=== PATIENT | male | born 1965 | race Two or more races ===

== ENCOUNTER 2025-04-09 00:45 | Inpatient (IN) | payer MEDICAID, SELFPAY ==
[2025-04-09] VITALS (32 sets, daily range): BP systolic 132–176; BP diastolic 67–95; PULSE 68–113; RESP 16–98; TEMP 36.2–37.2; O2SAT 91–100; BMI 29.5; BMI 30.7
--- NOTE | 2025-04-09 01:02 | PD.EDSOB ---
ED SOB =RME/HPI General Chief Complaint: General Adult/Misc Complain Stated Complaint: HIGH BLOOD PRESSURE DIFFICULTY BREATHING Time Seen by Provider: 04/09/25 01:10 Arrival date/time: 04/09/25 00:45 RME / HPI RME / HPI Narrative: See [facility] for Dr. Ochoa's HPI documentation. Related Data Home Medications ?Medication ?Instructions ?Recorded ?Confirmed glipizide 5 mg tablet 5 mg PO BID 01/31/19 01/31/19 ibuprofen 800 mg tablet 800 mg PO BID 01/31/19 01/31/19 insulin glargine 100 unit/mL 28 unit subcut QPM 01/31/19 01/31/19 subcutaneous solution (Lantus U-100 Insulin) metformin 1,000 mg tablet 1,000 mg PO BID 01/31/19 01/31/19 Previous Rx's ?Medication ?Instructions ?Recorded cyclobenzaprine 10 mg tablet 10 mg PO BID #14 tabs 03/01/22 meloxicam 7.5 mg tablet 7.5 mg PO QDAY #10 tabs 03/01/22 Allergies Allergy/AdvReac Type Severity Reaction Status Date / Time No Known Allergies Allergy Verified 04/09/25 00:54 Review of Systems Review of Systems Systems Reviewed: All systems reviewed, normal except as documented Past Medical History Past Medical History NEUROLOGIC: Negative Neurological Disorders CARDIAC: Positive Hypertension; Negative Cardiac Disorders or Congestive Heart Failure RESPIRATORY: Negative Chronic Obstructive Pulmonary Disease (COPD) or Asthma GASTROINTESTINAL: Negative Gastrointestinal Disorders GENITOURINARY: Positive Renal Disease MUSCULOSKELETAL: Negative Musculoskeletal Disorders ENT: Positive Cataracts (right) ENDOCRINE: Positive Diabetes Mellitus Type 2; Negative Diabetes Mellitus Type 1 HEMATOLOGIC: Negative Sickle Cell Disease OTHER HISTORY: Negative Cancer Surgical History SURGICAL: Positive Ear Surgery; Negative Abdominal Surgery Social History SMOKING STATUS: Never smoker ED Exam Narrative Physical exam: See [facility] for Dr. Ocoha's physical exam documentation. Course Quality Measures none Orders Category Date Time Status Bedside COVID-19 Antigen Test NOW Care 04/09/25 01:11 Active Bedside COVID-19 Antigen Test NOW Care 04/09/25 02:42 Completed Bedside Influenza A&B Antigen Test NOW Care 04/09/25 01:11 Completed COVID-19 Screening Questionnaire NOW Care 04/09/25 02:27 Active Decision to Admit X1 Care 04/09/25 02:27 Completed EKG (ED ONLY) *Do not use* NOW Care 04/09/25 01:11 Completed Saline [Insert IV] NOW Care 04/09/25 01:11 Active Straight [In and Out Catheter] X1 Care 04/09/25 01:11 Completed Consult to Nephrology Stat Cons 04/09/25 02:23 Ordered EKG (ED Only) Stat Exams 04/09/25 01:11 Ordered XR chest 1V portable Stat Exams 04/09/25 01:11 Taken ABG [Arterial Blood Gas] Stat Lab 04/09/25 01:24 Completed BNP [B-Type Natriuretic Peptide] Stat Lab 04/09/25 01:35 Completed Bilirubin,Direct Stat Lab 04/09/25 01:35 Completed CBC Stat Lab 04/09/25 01:35 Completed CMP [Comprehensive Metabolic Panel] Stat Lab 04/09/25 01:35 Completed D-Dimer Stat Lab 04/09/25 01:35 Completed Magnesium Stat Lab 04/09/25 01:35 Completed TSH [Thyroid Stimulating Hormone] Stat Lab 04/09/25 01:35 Completed Troponin I Stat Lab 04/09/25 01:35 Completed UA, C/S IF [Urinalysis, C/S if Indicated] Stat Lab 04/09/25 01:13 Ordered Albuterol/Ipratr Rt Larisa [Duoneb Rt Larisa] Med 04/09/25 01:11 Discontinued 3 ml INH X1 ONE MethylPREDNISolone.* [SoluMEDROL Inj] Med 04/09/25 01:11 Discontinued 125 mg IVP X1 ONE Metoprolol Tartrate [Lopressor] Med 04/09/25 01:11 Discontinued 50 mg PO X1 ONE cloNIDine HCL [Catapres] Med 04/09/25 01:11 Discontinued 0.3 mg PO X1 ONE Vital Signs Vital signs: Vital Signs Temperature 98.5 F 04/09/25 00:57 Pulse Rate 89 04/09/25 00:57 Respiratory Rate 20 04/09/25 00:57 Blood Pressure 176/76 H 04/09/25 00:57 Pulse Oximetry (%) 91 L 04/09/25 00:57 Oxygen Delivery Method Room Air 04/09/25 00:57 Shortness of Breath / Dyspnea MDM Narrative MDM Narrative:: This section includes all my notes and documentations, including HPI, PE, and ED course. Chet Ochoa MD HPI: 59yo male here with several days of worsening dyspnea, dry cough, and orthopnea. And high BP readings at home. No headache or dizziness. No chest pain. No other complaints. ROS: All negative except as documented in HPI. Physical Exam: General: Alert and oriented. In respiratory distress. Hypoxia noted. High BP noted. Eyes: Conjunctivae and lids clear. PERRL. EOMI. ENT: No nasal congestion. Pharynx normal. TM normal bilaterally. Neck: Supple. No carotid bruit. No JVD. Heart: RRR. Lungs: In respiratory distress. Moderately decreased air movement with wheezing and Rales. Abdomen: Soft and nontender. Normal bowel sounds. No distension. No rebound or guarding. Back: No CVA tenderness. Skin: Warm and dry. Neuro: Alert and oriented X 3. Cranial nerves II to XII grossly normal. No peripheral motor deficits. I reviewed all diagnostic test results. My interpretation of the EKG is sinus rhythm with no acute ST?T changes. My interpretation of the chest x-ray is increased vascular congestion. Blood tests remarkable for Hgb 7.4, D-Dimer 776, Creatinine 4.7, Glucose 212, BNP 699. At this point, diagnoses include: Renal failure Acute respiratory failure with hypoxia Severe anemia High BP Treatment here included: Oral clonidine 0.3 mg Oral metoprolol 50 mg Solu-Medrol to 25 mg DuoNeb Patient remained stable. I discussed the case with Dr. Venegas (our asphalt distributor operator on-call) and our hospitalist. About the presentation and exam and diagnostics and treatments here. And need of further care in the hospital. Will accept the patient. Chet Ochoa MD Patient data External records reviewed:: [facility] previous records (Per chart review, patient was seen here on 03/01/22 for back pain.) Clinical information provided by:: patient Social determinants that could affect healthcare access:: none Patient has the following chronic illnesses:: DM, HTN How is presenting disease/condition affected by chronic disease/condition?: uneffected by Evaluation data The following diagnostics were reviewed and interpreted by me:: lab results, radiology exam(s) and EKG tracing(s) Lab and/or radiology exams considered but not ordered:: none Interpretation Summary: I reviewed all diagnostic test results. My interpretation of the EKG is sinus rhythm with no acute ST?T changes. My interpretation of the chest x-ray is increased vascular congestion. Blood tests remarkable for Hgb 7.4, D-Dimer 776, Creatinine 4.7, Glucose 212, BNP 699. Medications / Prescriptions Medications or Prescriptions considered but not ordered:: none Medication administrations:: Medication Administration History Discontinued Medications Albuterol/Ipratropium (Albuterol/Ipratropium (Duoneb) Rt Larisa 3 Ml Nebu) 3 ml INH X1 ONE Stop: 04/09/25 01:12 Last Admin: 04/09/25 01:27 Dose: 3 ml Documented By: RAMON Clonidine (Clonidine Hcl 0.1 Mg Tablet) 0.3 mg PO X1 ONE Stop: 04/09/25 01:12 Last Admin: 04/09/25 01:26 Dose: 0.3 mg Documented By: AMNA Methylprednisolone Sodium Succinate (Methylprednisolone Sod Succ 62.5 Mg/Ml 2ml Vial) 125 mg IVP X1 ONE Stop: 04/09/25 01:12 Last Admin: 04/09/25 01:25 Dose: 125 mg Documented By: AMNA Metoprolol Tartrate (Metoprolol Tartrate 25 Mg Tablet) 50 mg PO X1 ONE Stop: 04/09/25 01:12 Last Admin: 04/09/25 01:25 Dose: 50 mg Documented By: AMNA Treatment here included: Oral clonidine 0.3 mg Oral metoprolol 50 mg Solu-Medrol to 25 mg DuoNeb Consultations Consultation(s) initiated? (list below): Yes Consultation #1 (Physician, Specialty, Details): I discussed the case with Dr. Venegas (our asphalt distributor operator on-call) and our hospitalist. About the presentation and exam and diagnostics and treatments here. And need of further care in the hospital. Will accept the patient. Diagnosis Shortness of Breath Differential Diagnosis: acute exacerbation of chronic obstructive airways disease, congestive heart failure, community acquired pneumonia, asthma with exacerbation and pulmonary embolism Most likely diagnosis given after review of the tests above:: At this point, diagnoses include: Renal failure Acute respiratory failure with hypoxia Severe anemia High BP Admission Indicated Admission indicated?: indicated Explain why admission is indicated or not indicated:: Renal failure, Acute respiratory failure with hypoxia, severe anemia, elevated BP Admission Request Was there a request for admission?: Yes Admission Attestation Admission request attestation: Discussed case with Hospitalist service regarding admission. Discussed patients ED course, exam findings, labs, and radiology results. The Hospitalist [agrees] to accept the patient for admission. Disposition Plan Disposition Plan: Admit Discharge Plan Plan Patient Disposition: Admit Acute Care w/in Hospital Prescriptions/Referrals Prescriptions/Med Rec: No Action Lantus U-100 Insulin 100 unit/mL Solution 28 unit SUBCUT QPM ibuprofen 800 mg Tablet 800 mg PO BID metformin 1,000 mg Tablet 1,000 mg PO BID glipizide 5 mg Tablet 5 mg PO BID meloxicam 7.5 mg tablet 7.5 mg PO QDAY Qty: 10 0RF cyclobenzaprine 10 mg tablet 10 mg PO BID Qty: 14 0RF Problem List Clinical Impression: Renal failure, Acute respiratory failure with hypoxia, Severe anemia Patient/Caregiver Discharge Instructions Print Language: Emirati Stand Alone Forms: [employer] Award Info., Patient Portal Info Letter
--- NOTE | 2025-04-09 01:11 | EKG_ITS ---
[facility] Test Date: 2025-04-09 Pat Name: WENDY MEDINA Department: Room: - Gender: Male Shuttle Filler: FANNY : 1965 Requested By: Chet Sahu Order Number: [id number] Reading : Chet Sahu Measurements Intervals [place] Rate: 114 P: 142 IA: 198 QRS: 81 QRSD: 104 T: -66 QT: 313 QTc: 433 Interpretive Statements SINUS TACHYCARDIA INCOMPLETE RIGHT BUNDLE BRANCH BLOCK ST DEVIATION AND MODERATE T-WAVE ABNORMALITY, CONSIDER LATERAL ISCHEMIA ST DEVIATION AND MODERATE T-WAVE ABNORMALITY, CONSIDER INFERIOR ISCHEMIA Compared to ECG 03/01/2022 16:23:43 Incomplete right bundle-branch block now present T-wave abnormality now present Possible ischemia now present Sinus rhythm no longer present Left ventricular hypertrophy no longer present ST (T wave) deviation no longer present /store/S0/[id number]/ecg/[id number].pdf
--- NOTE | 2025-04-09 01:11 | XR_ITS ---
Examination: AP chest single view Technique: AP portable upright chest single view. Date and time: April 09, 2025 0158 hrs. Indications: High blood pressure difficulty breathing today. Findings: Mild to moderate CHF. Mild to moderate enlargement cardiac contour. Prominent vascular congestion with perihilar basilar edema Impression: Mild to moderate CHF.
[2025-04-09] MEDS: METOPROLOL TARTRATE 25 MG TABLET 50 MG PO (01:25)
[2025-04-09] MEDS: MethylPREDNISolone SOD SUCC 62.5 MG/ML 2ML VIAL 125 MG IVP (01:25)
[2025-04-09] MEDS: ALBUTEROL/IPRATROPIUM (Duoneb) RT SOL 3 ML NEBU INH (01:27)
[2025-04-09 01:29] LABS: Base Excess -1 (-3-3); HCO3 24 mEq/L (20-26); Inspired Oxygen, FIO2 21 %; O2 Saturation 91 % (91-98); PCO2 39 mmHg (32.0-48.0); pH, Arterial 7.40 (7.35-7.45)
[2025-04-09 01:32] LABS: Allen Test Performed/OK; PO2 57 mmHg (83-108); Puncture Site Right Radial
[2025-04-09 01:53] LABS: Basophils # (Auto) 0.1 Thou/mm3 (0.0-0.2); Basophils % (Auto) 1 % (0-2.5); Eosinophils # (Auto) 0.3 Thou/mm3 (0.0-0.5); Eosinophils % (Auto) 5 % (0-10); Hematocrit 23.1 % (41.0-53.0); Immature Granulocytes Auto 0.01 Thou/mm3 (0.00-0.00); Lymphocytes # (Auto) 0.7 Thou/mm3 (1.0-4.8); Lymphocytes % (Auto) 13 % (10-50); Mean Corpuscular HGB Conc 32.0 g/dl (31.0-37.0); Mean Corpuscular Hemoglobin 30.3 pg (25.0-35.0); Mean Corpuscular Volume 95 fL (80-100); Monocytes # (Auto) 0.5 Thou/mm3 (0.0-0.8); Monocytes % (Auto) 10 % (0-12); Neutrophils # (Auto) 3.6 Thou/mm3 (1.8-7.7); Neutrophils % (Auto) 71 % (37-80); Nucleated Red Blood Cell # 0.00 Thou/mm3 (0.00-0.00); Nucleated Red Blood Cell % 0 /100 WBC (0); Platelet Count 176 Thou/mm3 (140-440); RDW Standard Deviation 45.9 fL (35.1-43.9); Red Blood Count 2.44 Miln/mm3 (4.50-5.90); White Blood Count 5.1 Thou/mm3 (3.8-10.6)
[2025-04-09 01:55] LABS: Hemoglobin 7.4 g/dL (13.5-16.0)
[2025-04-09 02:11] LABS: B-Type Natriuretic Peptide 699 pg/mL (0-100)
[2025-04-09 02:14] LABS: Alanine Aminotransferase 45 U/L (10-49); Albumin, Serum 3.7 gm/dL (3.5-5.0); Albumin/Globulin Ratio 1.7 (1.2-2.2); Alkaline Phosphatase 61 U/L (46-116); Anion Gap 12 (7-16); Aspartate Amino Transferase 30 U/L (0-34); BUN/Creatinine Ratio 13 Ratio (12-20); Bilirubin,Direct 0.2 mg/dL (0.0-0.3); Bilirubin,Total 0.4 mg/dL (0.3-1.2); Blood Urea Nitrogen 60 mg/dL (9-23); Calcium 8.7 mg/dL (8.3-10.6); Calcium (Corrected) 8.9 mg/dL (8.5-10.1); Carbon Dioxide 25.0 mMol/L (20.0-31.0); Chloride 109 mMol/L (98-107); Creatinine (Component) 4.7 mg/dL (0.6-1.3); Estimated Creatinine Clearance 18.8 mL/min (>60); Globulin 2.2 gm/dL (2.3-3.5); Glucose 212 mg/dL (74-106); Magnesium 2.0 mg/dL (1.6-2.6); Osmolality,Calculated 313 (275-295); Potassium 4.8 mMol/L (3.4-5.1); Sodium 146 mMol/L (136-145); Thyroid Stimulating Hormone 2.59 uIU/mL (0.55-4.78); Total Protein 5.9 gm/dL (5.7-8.2); Troponin I 0.041 ng/mL (0.0-0.045); eGFR 14 See Note
[2025-04-09 02:15] LABS: D-Dimer 776 ng/mL (<600)
[2025-04-09 03:00] LABS: Collection Type, Urine Clean Catch; Squamous Epithelial Cell,Urine 0 /hpf (0-5)
[2025-04-09 03:12] LABS: Bilirubin,Urine Negative (Negative); Blood,Urine 1+ (Negative); Clarity,Urine Clear (Clear/Hazy); Color,Urine Colorless (Lt Yel-Yel); Culture Indicated,Urine Not Indicated; Glucose, Urine 4+ (Negative); Ketones,Urine Negative (Negative); Leukocyte Esterase,Urine Negative (Negative); Nitrite,Urine Negative (Negative); PH,Urine 7.0 (5.0-7.0); Protein,Urine 2+ (Neg - Trace); RBC,Urine 8 /hpf (0-3); Specific Gravity,Urine 1.012 (1.001-1.035); Urobilinogen,Urine Negative mg/dL (0.0-1.0); WBC,Urine 1 /hpf (0-5)
--- NOTE | 2025-04-09 04:18 | PD.RESHP ---
Documentation for date of: 04/09/25 [facility] History of Present Illness Chief complaint: SOB and HTN History of present illness: Mr. Ny, he is a 59-year-old male with past medical history significant for hypertension, insulin-dependent type 2 diabetes, hyperlipidemia, CKD that presented to the ED on 04/09/25 with chief complaint of acute shortness of breath and high blood pressure. The patient presents today with increased difficulty breathing and elevated blood pressure readings at home, particularly at night. The shortness of breath is associated with orthopnea, but the patient denies chest pain, paroxysmal nocturnal dyspnea, or any other chest discomfort. Over the past two months, nephrology has been discussing the option of starting dialysis due to his chronic kidney disease (CKD). However, the patient prefers to delay starting dialysis until after his planned family trip to [place]. He is seeking information on the benefits and risks of starting dialysis now versus later. The patient was advised to consider starting dialysis prior to his trip, and his decision was supported, with encouragement to proceed with treatment before leaving. The patient currently has no active complaints and denies recent sick contacts, abdominal pain, urinary frequency or urgency, diarrhea, vomiting, or generalized weakness. ED Course: -Initial vitals were BP 170 [place], pulse 89, RR 20, temp 98.5, O2 sat 91% on NC -Labs significant For hemoglobin at 7.4, hematocrit 23.1, D-dimer 776, ABG was significant for PaO2 57, and a 146, chloride 119, bun 60, creatinine 4.7, estimated creatinine clearance 18.8, eGFR of 14, glucose 212, BNP 699, globulin 2.2. UA showed 2+ protein, 4+ glucose, 8+ RBC. -Imaging included chest x-ray showed mild to moderate CHF, pulmonary vascular congestion with perihilar basilar edema. -In the ED, patient was given Dilaudid 15 mg, methylprednisolone 125 mg, clonidine 0.3, DuoNeb. -Patient was admitted for acute hypoxic respiratory failure and CKD evaluation and management. Review of Systems Review of systems otherwise negative except what is mentioned above. Past Medical History: As above Family History: Noncontributory Surgical History: Cardiac angiogram in the past Social History: Denies history of smoking, denies current alcohol use, denies recreational drug use Current Medications: (Source: ) Allergies: No known drug allergies Exam Vital Signs Temp Pulse Resp BP Pulse Ox O2 Del Method O2 Flow Rate 98.8 F 68 16 139/88 H 98 Nasal Cannula 2 04/09/25 04:00 04/09/25 04:00 04/09/25 04:00 04/09/25 04:00 04/09/25 04:00 04/09/25 04:00 04/09/25 04:00 Narrative Exam General: Alert, no acute distress.Conversational and non-toxic appearing. Skin: Warm, dry, intact. No rash or ecchymoses. Head: Normocephalic, atraumatic. Eye: Normal conjunctiva, PERRL. Throat: Oral mucosa moist. No obvious lesions in oropharynx. Cardiovascular: Regular rate and rhythm, no murmur, +S1/S2. Respiratory: Moderately decreased air movement with wheezing and rales. Gastrointestinal: Soft, nontender, non-distended. No guarding or rebound tenderness. Extremities: +1 pitting edema bilaterally Neuro: Alert and oriented x3.No focal deficits observed. Conversant, moving all extremities. No overt cerebellar signs/incoordination. Psychiatric: Cooperative, appropriate affect Results: Labs 04/11/25 05:05 04/11/25 05:05 Labs: Short CBC 04/09/25 Range/Units 01:35 WBC 5.1 (3.8-10.6) Thou/mm3 Hgb 7.4 L (13.5-16.0) g/dL Hct 23.1 L (41.0-53.0) % Plt Count 176 (140-440) Thou/mm3 BMP 04/09/25 01:35 Sodium 146 H Potassium 4.8 Chloride 109 H Carbon Dioxide 25.0 BUN 60 H Creatinine 4.7 H* Glucose 212 H Calcium 8.7 Cardiac Enzymes 04/09/25 Range/Units 01:35 Troponin I 0.041 (0.0-0.045) ng/mL Liver Function 04/09/25 Range/Units 01:35 Total Bilirubin 0.4 (0.3-1.2) mg/dL Direct Bilirubin 0.2 (0.0-0.3) mg/dL AST 30 (0-34) U/L ALT 45 (10-49) U/L Alkaline Phosphatase 61 (46-116) U/L Albumin 3.7 (3.5-5.0) gm/dL Urine 04/09/25 Range/Units 02:28 Urine Color Colorless A (Lt Yel-Yel) Urine Clarity Clear (Clear/Hazy) Urine pH 7.0 (5.0-7.0) Ur Specific [place] 1.012 (1.001-1.035) Urine Protein 2+ A (Neg - Trace) Urine Glucose (UA) 4+ A (Negative) ABG Interpretation ABG results: 04/09/25 01:24 ABG pH 7.40 ABG pCO2 39 ABG pO2 57 L* ABG HCO3 24 ABG O2 Saturation 91 ABG Base Excess -1 Quality Measures Quality Measures none Medications Home Medications and Allergies Home Medications ?Medication ?Instructions ?Recorded ?Confirmed ?Type aspirin 81 mg tablet 81 mg PO QDAY 04/10/25 04/10/25 History atorvastatin 80 mg PO QDAY 04/10/25 04/10/25 History calcitriol 0.25 mcg capsule 0.25 mcg PO QDAY 04/10/25 04/10/25 History hydralazine 50 mg tablet 50 mg PO BID 04/10/25 04/10/25 History metoprolol succinate 50 mg 50 mg PO QDAY 04/10/25 04/10/25 History tablet,extended release 24 hr (Toprol XL) sitagliptin phosphate 25 mg tablet 25 mg PO QDAY 04/10/25 04/10/25 History (Januvia) sodium bicarbonate 325 mg tablet 325 mg PO BID 04/10/25 04/10/25 History tamsulosin 0.4 mg capsule 0.4 mg PO BID 04/10/25 04/10/25 History valsartan 160 mg tablet 160 mg PO QDAY 04/10/25 04/10/25 History Allergies Allergy/AdvReac Type Severity Reaction Status Date / Time No Known Allergies Allergy Verified 04/09/25 00:54 Visit Medications Heparin Sodium (Porcine) (Heparin Sod Inj 5000 Unit/Ml Vial) 5,000 unit SC BID CHARLES Stop: 04/23/25 08:59 Insulin Degludec (Insulin Degludec 5 Unit/0.05 Ml (Per 5 Units)) 20 unit SC QDAY CHARLES Stop: 05/09/25 08:59 Ondansetron HCl (Ondansetron Inj 2 Mg/Ml Inj 2 Ml) 4 mg IVP Q6H PRN; Protocol PRN Reason: NAUSEA OR VOMITING Stop: 05/09/25 03:00 Discontinued Medications Albuterol/Ipratropium (Albuterol/Ipratropium (Duoneb) Rt Larisa 3 Ml Nebu) 3 ml INH X1 ONE Stop: 04/09/25 01:12 Last Admin: 04/09/25 01:27 Dose: 3 ml Clonidine (Clonidine Hcl 0.1 Mg Tablet) 0.3 mg PO X1 ONE Stop: 04/09/25 01:12 Last Admin: 04/09/25 01:26 Dose: 0.3 mg Methylprednisolone Sodium Succinate (Methylprednisolone Sod Succ 62.5 Mg/Ml 2ml Vial) 125 mg IVP X1 ONE Stop: 04/09/25 01:12 Last Admin: 04/09/25 01:25 Dose: 125 mg Metoprolol Tartrate (Metoprolol Tartrate 25 Mg Tablet) 50 mg PO X1 ONE Stop: 04/09/25 01:12 Last Admin: 04/09/25 01:25 Dose: 50 mg Assessment & Plan Plan Mr. Ny, he is a 59-year-old male with past medical history significant for hypertension, insulin-dependent type 2 diabetes, hyperlipidemia, CAD, CKD that presented to the ED on 04/09/25 with chief complaint of acute shortness of breath and high blood pressure. Admitted for acute possible fluid failure in the setting of worsening CKD. #Acute hypoxic respiratory failure 2/2 #Fluid overload in setting of #HFrEF (EF 35%) Patient presented with shortness of breath and is saturating 91% on 2 L nasal cannula. ABG was done and patient pO2 was significantly low at 57. Examination cardiac exam was sinus rhythm, however pulmonary exam was significant for wheezing throughout lungs and low breath sounds bilaterally. Patient sounds congested and fluid overloaded. Chest X-ray showed pulmonary vascular congestion perihilar basilar edema and mild to moderate CHF. Per chart review patient had cardiac angiogram done in 2019 in view of positive troponin and severe LL dysfunction EF 35%. Patient was transferred to [facility] for further management. On admission BNF 699, troponin were negative. Patient had no complains of chest pain, chest palpitation, paroxysmal nocturnal dyspnea. Patient clinical presentation, physical exam findings of volume overload suggest possible congestive heart failure exacerbation. Last ECHO on 01/31/19 show EF 35% Plan - Supplemental O2 as needed, wean as tolerated - Keep K > 4 and Mg > 2 - Consider getting a new TTE - Close monitor of cardiac symptoms # SAVI on CKD stage IV #Hyperkalemia On admission creatinine 4.7, creatinine clearance 18.8, GFR 14, BUN 60. Pt kidney function has deteriorated from last hospitalization. Patient probably progressing from CKD stage IV to V. Urgent dialysis is needed to stabilize patient kidney function. Plan -Dr Venegas consulted- IR for dialysis catheter insertion for HD, type and screen - Avoid nephrotoxins - Monitor renal panel -Renally dosed medications -Hold any YOSSI/ARB/diuretics #Primary Hypertension Patient hypertension continues to monitor home medication valsartan, metoprolol XL succinate. On admission BP was 176/76 for which patient received metoprolol tartrate 50 mg and clonidine 0.3. Plan - Continue to monitor vitals - Pending med rec #Insulin-dependent type 2 diabetes On admission glucose 196. A1c 6.6. The patient is on Jardiance, Januvia, 20 units degludec AM and 15 units p.m. Plan - [facility] glucose check - Started patient on 20 units degludec QDAY and 15 units HS #Hyperlipidemia History of HLD managed with home atorvastatin 80 mg. Last lipid panel on 02/01/19 triglyceride 172, cholesterol 214, LDL cholesterol 152, HLD cholesterol 28. Plan - Considered resuming home medications after dialysis - Pending med rec Hospital management: Lines: peripheral IV Diet: NPO Bowel: Senna DVT prophylaxis: heparin Sc Disposition: AHRF, SAVI on CKD management CODE STATUS: Full code Patient seen and assessed under supervision of attending physician Dr.Alhalaibeh Vidya Hicks MD PGY-1, Internal Medicine Please note: this document was transcribed using voice recognition technology; minor inaccuracies may be present. Attending Provider Attestation/Addendum After examination of the patient and review of the clinical data I feel that this patient needs admission to the hospital for further treatment/evaluation. Plan of care discussed with patient and is in agreement. I Trinidad Ballesteros MD, attest that I was physically present for atkins portions of evaluation, and examined patient, labs and imagings and plan of care were discussed with IM residents team, and I agree with the findings and plans documented above.
[2025-04-09 04:56] LABS: Basophils # (Auto) 0.0 Thou/mm3 (0.0-0.2); Basophils % (Auto) 1 % (0-2.5); Eosinophils # (Auto) 0.0 Thou/mm3 (0.0-0.5); Eosinophils % (Auto) 1 % (0-10); Hematocrit 23.3 % (41.0-53.0); Immature Granulocytes Auto 0.02 Thou/mm3 (0.00-0.00); Lymphocytes # (Auto) 0.3 Thou/mm3 (1.0-4.8); Lymphocytes % (Auto) 5 % (10-50); Mean Corpuscular HGB Conc 32.2 g/dl (31.0-37.0); Mean Corpuscular Hemoglobin 30.2 pg (25.0-35.0); Mean Corpuscular Volume 94 fL (80-100); Monocytes # (Auto) 0.1 Thou/mm3 (0.0-0.8); Monocytes % (Auto) 2 % (0-12); Neutrophils # (Auto) 4.7 Thou/mm3 (1.8-7.7); Neutrophils % (Auto) 91 % (37-80); Nucleated Red Blood Cell # 0.00 Thou/mm3 (0.00-0.00); Nucleated Red Blood Cell % 0 /100 WBC (0); Platelet Count 177 Thou/mm3 (140-440); RDW Standard Deviation 45.6 fL (35.1-43.9); Red Blood Count 2.48 Miln/mm3 (4.50-5.90); White Blood Count 5.1 Thou/mm3 (3.8-10.6)
[2025-04-09 04:57] LABS: Hemoglobin 7.5 g/dL (13.5-16.0)
[2025-04-09 05:12] LABS: Alanine Aminotransferase 43 U/L (10-49); Albumin, Serum 3.8 gm/dL (3.5-5.0); Albumin/Globulin Ratio 1.7 (1.2-2.2); Alkaline Phosphatase 58 U/L (46-116); Anion Gap 10 (7-16); Aspartate Amino Transferase 28 U/L (0-34); BUN/Creatinine Ratio 13 Ratio (12-20); Bilirubin,Total 0.4 mg/dL (0.3-1.2); Blood Urea Nitrogen 62 mg/dL (9-23); Calcium 8.8 mg/dL (8.3-10.6); Calcium (Corrected) 9.0 mg/dL (8.5-10.1); Carbon Dioxide 24.9 mMol/L (20.0-31.0); Chloride 110 mMol/L (98-107); Creatinine (Component) 4.6 mg/dL (0.6-1.3); Estimated Creatinine Clearance 19.2 mL/min (>60); Globulin 2.2 gm/dL (2.3-3.5); Glucose 188 mg/dL (74-106); Glucose Estimated Average 143 mg/dL (80-131); Hemoglobin A1C 6.6 % Hgb (4.8-6.0); Magnesium 2.0 mg/dL (1.6-2.6); Osmolality,Calculated 311 (275-295); Potassium 5.3 mMol/L (3.4-5.1); Sodium 145 mMol/L (136-145); Total Protein 6.0 gm/dL (5.7-8.2); eGFR 14 See Note
--- NOTE | 2025-04-09 08:15 | XR_ITS ---
Ultrasound-guided needle placement right internal jugular vein Permanent tunneled dialysis catheter insertion, percutaneous Fluoroscopy AP chest, portable, single view. Date and time of procedure: April 09, 2025 1005 hours INDICATIONS: Renal failure, need for stat and long-term dialysis Informed consent provided Technique: A timeout was completed verifying correct patient, procedure, site, positioning, and special equipment if applicable. The patient was placed in a dependent position appropriate for dialysis catheter placement based on the vein to be cannulated. The patient'sright neck was prepped and draped in sterile fashion. Maximum Sterile Barrier Technique used including cap, mask, sterile gown, sterile gloves, and sterile full body drape. If ultrasound technique used: sterile gel and sterile probe covers. Hand Hygiene performed using proper scrub, soap and water, or alcohol-based hand rub. 1% lidocaine was used to anesthetize the surrounding skin area The Site Message Buse portable ultrasound apparatus utilized to confirm patency right internal jugular vein Utilizing ultrasonographic guidance successful 21-gauge needle puncture right internal jugular vein Ultrasound images were recorded and stored. Vessel micropuncture was performed with 21-gauge needle. 0.18 wire guide is introduced into the vein. 0.18 wire is introduced into the vena cava under fluoroscopy. Subcutaneous tunnel formed in the upper chest. Permanent tunneled dialysis catheter placed in the subcutaneous tunnel. Dilators were introduced over the J-wire guide. Tunneled dialysis catheter is introduced through a dilator with venous sheath into the superior vena cava under fluoroscopic guidance. The catheter is sutured in place to the skin and a sterile dressing applied. Perfusion to the extremity distal to the point of catheter insertion is checked and found to be adequate Attending radiologist was present for the entire procedure Estimated blood loss4 cc. The patient tolerated the procedure well and there were no complications Impression: Successful ultrasound-guided needle placement right internal jugular vein Successful permanent tunneled dialysis catheter insertion, percutaneous Fluoroscopy 0.6 minutes radiation dose 17.87 milligray 1 spot fluoroscopic chest film. AP chest performed at completion procedure demonstrates satisfactory position dialysis catheter. May use dialysis catheter.
[2025-04-09] MEDS: TUBERCULIN PPD INJ 5 UNIT/0.1 ML DOSE ID (08:32)
[2025-04-09 08:41] LABS: INR 1.2 (0.9-1.3); Partial Thromboplastin Time 28.1 Seconds (22.0-36.0); Prothrombin Time 13.1 Seconds (9.0-12.2)
--- NOTE | 2025-04-09 08:47 | PD.RESHP ---
Documentation for date of: 04/09/25 HPI History of Present Illness History of present illness: 59y/o M with PMH of diabetes, HTN, high cholesterol, CKD presented to the hospital on 04/09/2025 due to worsening shortness of breathe at night. Patient noticed swelling in his bilateral feet 15 days ago. Starting 3 days ago, he was unable to go to sleep due to sudden onset of shortness of breathe that wakes him up the moment he falls asleep. He also couldn't lie flat on bed. He didn't have any problems walking during the day. Denies chest pain, palpitations, N/V, headache or dizziness, dysuria, or blood in the urine. Per Dr. Venegas, automation controls expert, he is CKD patient requiring dialysis, which the patient has refused.Patient has been admitted for management of SAVI on CKD requiring dialysis and CHF exacerbation. ED course: Medical history: As stated above Surgical history: Appendectomy Allergies: See list in the EMR Medications: Pending official med rec Family history: All his family member has Diabetes Social history: Denies smoking cigarettes, drinking alcohol or using other illicit drugs ROS: All 12 systems assessed and the patient denies unless otherwise stated in HPI Disposition: Management of SAVI on CKD and CHF Diet: NPO GI prophylaxis: DVT prophylaxis: Heparin Code: FULL Review of Systems Review of Systems Narrative Review of Systems: All 12 systems assessed and the patient denies unless otherwise stated in HPI Exam Vital Signs Temp Pulse Resp BP Pulse Ox O2 Del Method O2 Flow Rate 97.2 F 88 18 161/85 H 97 Nasal Cannula 2 04/09/25 08:00 04/09/25 08:00 04/09/25 08:00 04/09/25 08:00 04/09/25 08:00 04/09/25 08:00 04/09/25 08:00 Results: Labs 04/09/25 04:43 04/09/25 04:43 Labs: Short CBC 04/09/25 04/09/25 Range/Units 01:35 04:43 WBC 5.1 5.1 (3.8-10.6) Thou/mm3 Hgb 7.4 L 7.5 L (13.5-16.0) g/dL Hct 23.1 L 23.3 L (41.0-53.0) % Plt Count 176 177 (140-440) Thou/mm3 BMP 04/09/25 04/09/25 01:35 04:43 Sodium 146 H 145 Potassium 4.8 5.3 H D Chloride 109 H 110 H Carbon Dioxide 25.0 24.9 BUN 60 H 62 H Creatinine 4.7 H* 4.6 H* Glucose 212 H 188 H Calcium 8.7 8.8 Cardiac Enzymes 04/09/25 Range/Units 01:35 Troponin I 0.041 (0.0-0.045) ng/mL Liver Function 04/09/25 04/09/25 Range/Units 01:35 04:43 Total Bilirubin 0.4 0.4 (0.3-1.2) mg/dL Direct Bilirubin 0.2 (0.0-0.3) mg/dL AST 30 28 (0-34) U/L ALT 45 43 (10-49) U/L Alkaline Phosphatase 61 58 (46-116) U/L Albumin 3.7 3.8 (3.5-5.0) gm/dL Urine 04/09/25 Range/Units 02:28 Urine Color Colorless A (Lt Yel-Yel) Urine Clarity Clear (Clear/Hazy) Urine pH 7.0 (5.0-7.0) Ur Specific [place] 1.012 (1.001-1.035) Urine Protein 2+ A (Neg - Trace) Urine Glucose (UA) 4+ A (Negative) ABG Interpretation ABG results: 04/09/25 01:24 ABG pH 7.40 ABG pCO2 39 ABG pO2 57 L* ABG HCO3 24 ABG O2 Saturation 91 ABG Base Excess -1 Quality Measures Quality Measures none Medications Home Medications and Allergies Home Medications ?Medication ?Instructions ?Recorded ?Confirmed ?Type glipizide 5 mg tablet 5 mg PO BID 01/31/19 01/31/19 History ibuprofen 800 mg tablet 800 mg PO BID 01/31/19 01/31/19 History insulin glargine 100 unit/mL 28 unit subcut QPM 01/31/19 01/31/19 History subcutaneous solution (Lantus U-100 Insulin) metformin 1,000 mg tablet 1,000 mg PO BID 01/31/19 01/31/19 History Allergies Allergy/AdvReac Type Severity Reaction Status Date / Time No Known Allergies Allergy Verified 04/09/25 00:54 Visit Medications Heparin Sodium (Porcine) (Heparin Sod Inj 5000 Unit/Ml Vial) 5,000 unit SC BID [facility] Stop: 04/23/25 08:59 Insulin Degludec (Insulin Degludec 5 Unit/0.05 Ml (Per 5 Units)) 20 unit SC QDAY [facility] Stop: 05/09/25 08:59 Insulin Degludec (Insulin Degludec 5 Unit/0.05 Ml (Per 5 Units)) 15 unit SC HS [facility] Stop: 05/09/25 20:59 Ondansetron HCl (Ondansetron Inj 2 Mg/Ml Inj 2 Ml) 4 mg IVP Q6H PRN; Protocol PRN Reason: NAUSEA OR VOMITING Stop: 05/09/25 03:00 Discontinued Medications Albuterol/Ipratropium (Albuterol/Ipratropium (Duoneb) Rt Larisa 3 Ml Nebu) 3 ml INH X1 ONE Stop: 04/09/25 01:12 Last Admin: 04/09/25 01:27 Dose: 3 ml Clonidine (Clonidine Hcl 0.1 Mg Tablet) 0.3 mg PO X1 ONE Stop: 04/09/25 01:12 Last Admin: 04/09/25 01:26 Dose: 0.3 mg Methylprednisolone Sodium Succinate (Methylprednisolone Sod Succ 62.5 Mg/Ml 2ml Vial) 125 mg IVP X1 ONE Stop: 04/09/25 01:12 Last Admin: 04/09/25 01:25 Dose: 125 mg Metoprolol Tartrate (Metoprolol Tartrate 25 Mg Tablet) 50 mg PO X1 ONE Stop: 04/09/25 01:12 Last Admin: 04/09/25 01:25 Dose: 50 mg Tuberculin PPD (Tuberculin Ppd Inj 5 Unit/0.1 Ml Dose) 5 unit ID X1 ONE Stop: 04/09/25 08:15 Last Admin: 04/09/25 08:32 Dose: 5 unit
[2025-04-09] MEDS: INSULIN DEGLUDEC 5 UNIT/0.05 ML (PER 5 UNITS) 20 UNIT SC (08:55)
[2025-04-09] MEDS: HEPARIN SOD INJ 5000 UNIT/ML VIAL SC ×2 (08:55→21:07)
--- NOTE | 2025-04-09 09:09 | PD.RESCONSUL ---
HPI Data of Consult Consult date: 04/09/25 Requesting Physician: Trinidad Ballesteros MD Admitting Provider: Trinidad Ballesteros MD Attending Provider: Trinidad Ballesteros MD Primary Care Provider: Narciso Morrow MD Consult Narrative Reason for consult: ESRD-need for dialysis History of present illness: 59y/o M with PMH of diabetes, HTN, high cholesterol, CKD presented to the hospital on 04/09/2025 due to worsening shortness of breathe at night. Patient noticed swelling in his bilateral feet 15 days ago. Starting 3 days ago, he was unable to go to sleep due to sudden onset of shortness of breathe that wakes him up the moment he falls asleep. He also couldn't lie flat on bed. He didn't have any problems walking during the day. Denies chest pain, palpitations, N/V, headache or dizziness, dysuria, or blood in the urine.?Patient has CKD requiring dialysis, which the patient has refused.Patient has been admitted for management of SAVI on CKD requiring dialysis and CHF exacerbation. ED course: -Initial vitals were BP 170 [place], pulse 89, RR 20, temp 98.5, O2 sat 91% on NC -Labs significant For hemoglobin at 7.4, hematocrit 23.1, D-dimer 776, ABG was significant for PaO2 57, and a 146, chloride 119, bun 60, creatinine 4.7, estimated creatinine clearance 18.8, eGFR of 14, glucose 212, BNP 699, globulin 2.2. UA showed 2+ protein, 4+ glucose, 8+ RBC. -Imaging included chest x-ray showed mild to moderate CHF, pulmonary vascular congestion with perihilar basilar edema. -In the ED, patient was given Dilaudid 15 mg, methylprednisolone 125 mg, clonidine 0.3, DuoNeb. -Patient was admitted for acute hypoxic respiratory failure and CKD evaluation and management. Medical history: As stated above Surgical history: Appendectomy Allergies: NKDA Medications: Pending official med rec Family history: All his family members have Diabetes Social history: Denies smoking cigarettes, drinking alcohol or using other illicit drugs cc:: cc: Trinidad Ballesteros MD Review of Systems Review of Systems Narrative Review of Systems: All 12 systems assessed and the patient denies unless otherwise stated in HPI Exam Vital Signs Temp Pulse Resp BP Pulse Ox O2 Del Method O2 Flow Rate 97.2 F 88 18 161/85 H 97 Nasal Cannula 2 04/09/25 08:00 04/09/25 08:00 04/09/25 08:00 04/09/25 08:00 04/09/25 08:00 04/09/25 08:00 04/09/25 08:00 Narrative Exam General: No acute distress, well nourished, AAO x3 Eye: PERRL, EOMI, normal conjunctiva, no scleral icterus HENT: Normocephalic, atraumatic, hearing intact to conversation at normal volume, moist oral mucosa Neck: Supple, non-tender, no JVD, no lymphadenopathy Lungs: Non-labored respirations, symmetric chest rise, Clear to auscultate bilaterally, No wheezing, rhonchi, crackles Heart: Peripheral pulses intact bilaterally, Regular Rate and Rhythm Abdomen: Soft, non-tender, non-distended, no palpable masses Musculoskeletal: Normal range of motion and strength, No visible joint swelling, +1 pitting edema BLE Skin: Skin is warm, dry, no rashes or lesions. Psychiatric: Cooperative, appropriate mood and affect, Awake and alert, not agitated Neuro: Cranial nerves II-XII grossly intact. Strength 5/5 throughout. Sensations intact to light touch. Results Labs 04/09/25 04:43 04/09/25 04:43 Labs: Short CBC 04/09/25 04/09/25 Range/Units 01:35 04:43 WBC 5.1 5.1 (3.8-10.6) Thou/mm3 Hgb 7.4 L 7.5 L (13.5-16.0) g/dL Hct 23.1 L 23.3 L (41.0-53.0) % Plt Count 176 177 (140-440) Thou/mm3 BMP 04/09/25 04/09/25 01:35 04:43 Sodium 146 H 145 Potassium 4.8 5.3 H D Chloride 109 H 110 H Carbon Dioxide 25.0 24.9 BUN 60 H 62 H Creatinine 4.7 H* 4.6 H* Glucose 212 H 188 H Calcium 8.7 8.8 Cardiac Enzymes 04/09/25 Range/Units 01:35 Troponin I 0.041 (0.0-0.045) ng/mL Liver Function 04/09/25 04/09/25 Range/Units 01:35 04:43 Total Bilirubin 0.4 0.4 (0.3-1.2) mg/dL Direct Bilirubin 0.2 (0.0-0.3) mg/dL AST 30 28 (0-34) U/L ALT 45 43 (10-49) U/L Alkaline Phosphatase 61 58 (46-116) U/L Albumin 3.7 3.8 (3.5-5.0) gm/dL Urine 04/09/25 Range/Units 02:28 Urine Color Colorless A (Lt Yel-Yel) Urine Clarity Clear (Clear/Hazy) Urine pH 7.0 (5.0-7.0) Ur Specific [place] 1.012 (1.001-1.035) Urine Protein 2+ A (Neg - Trace) Urine Glucose (UA) 4+ A (Negative) ABG Interpretation ABG results: 04/09/25 01:24 ABG pH 7.40 ABG pCO2 39 ABG pO2 57 L* ABG HCO3 24 ABG O2 Saturation 91 ABG Base Excess -1 Quality Measures Quality Measures none Medications Home Medications and Allergies Home Medications ?Medication ?Instructions ?Recorded ?Confirmed ?Type glipizide 5 mg tablet 5 mg PO BID 01/31/19 01/31/19 History ibuprofen 800 mg tablet 800 mg PO BID 01/31/19 01/31/19 History insulin glargine 100 unit/mL 28 unit subcut QPM 01/31/19 01/31/19 History subcutaneous solution (Lantus U-100 Insulin) metformin 1,000 mg tablet 1,000 mg PO BID 01/31/19 01/31/19 History Allergies Allergy/AdvReac Type Severity Reaction Status Date / Time No Known Allergies Allergy Verified 04/09/25 00:54 Visit Medications Heparin Sodium (Porcine) (Heparin Sod Inj 5000 Unit/Ml Vial) 5,000 unit SC BID [facility] Stop: 04/23/25 08:59 Last Admin: 04/09/25 08:55 Dose: 5,000 unit Insulin Degludec (Insulin Degludec 5 Unit/0.05 Ml (Per 5 Units)) 20 unit SC QDAY [facility] Stop: 05/09/25 08:59 Last Admin: 04/09/25 08:55 Dose: 20 unit Insulin Degludec (Insulin Degludec 5 Unit/0.05 Ml (Per 5 Units)) 15 unit SC HS [facility] Stop: 05/09/25 20:59 Ondansetron HCl (Ondansetron Inj 2 Mg/Ml Inj 2 Ml) 4 mg IVP Q6H PRN; Protocol PRN Reason: NAUSEA OR VOMITING Stop: 05/09/25 03:00 Discontinued Medications Albuterol/Ipratropium (Albuterol/Ipratropium (Duoneb) Rt Larisa 3 Ml Nebu) 3 ml INH X1 ONE Stop: 04/09/25 01:12 Last Admin: 04/09/25 01:27 Dose: 3 ml Clonidine (Clonidine Hcl 0.1 Mg Tablet) 0.3 mg PO X1 ONE Stop: 04/09/25 01:12 Last Admin: 04/09/25 01:26 Dose: 0.3 mg Methylprednisolone Sodium Succinate (Methylprednisolone Sod Succ 62.5 Mg/Ml 2ml Vial) 125 mg IVP X1 ONE Stop: 04/09/25 01:12 Last Admin: 04/09/25 01:25 Dose: 125 mg Metoprolol Tartrate (Metoprolol Tartrate 25 Mg Tablet) 50 mg PO X1 ONE Stop: 04/09/25 01:12 Last Admin: 04/09/25 01:25 Dose: 50 mg Tuberculin PPD (Tuberculin Ppd Inj 5 Unit/0.1 Ml Dose) 5 unit ID X1 ONE Stop: 04/09/25 08:15 Last Admin: 04/09/25 08:32 Dose: 5 unit Assessment & Plan Plan 59y/o M with PMH of diabetes, HTN, high cholesterol, CKD presented to the hospital on 04/09/2025 due to worsening shortness of breathe at night. Patient has been admitted for management of SAVI on CKD requiring dialysis and CHF exacerbation. # SAVI on Chronic Kidney Disease Stage 5 # Severe anemia BUN 62 , Cr:4.6 , eGFR: 14, BNP:699 Hgb: 7.5 - Past Renal ultrasound (01/26/2024): Bilateral renal cortical thinning, Moderate bilateral renal parenchymal scar formation, Mid prostate nodule 13 x 19 x 26 mm, recommend correlation with PSA and follow-up transrectal prostate sonography -The patient unable to sleep at home laying flat and sudden shortness of breathe the moment he falls asleep -His current poor renal function likely caused CHF, resulting in fluid overload as evidenced by BNP levels. -Was offered dialysis, but patient refused. -Patient is a good candidate for kidney transplant considering his relatively young age. -Hemodialysis sessions: 04/09 ?Plan: - Patient will received Hemodialysis today - Tunneled Dialysis catheter ordered. - TB test and Hep panel ordered - Patient is anemic. Will receive irradiated pRBC 1 unit, considering possible kidney transplant. - Nephrology will continue to follow - Avoid nephrotoxic and renally dose medications, strict ins and outs #Acute hypoxemic respiratory failure #Acute CHF exacerbation #2/2 volume overload from CKD stage 5 #Hx of HFrE, EF 35% (01/31/2019) - Presenting with several days of lower extremity swelling, PND, and orthopnea. -Symptoms suggestive of acute CHF - EKG (04/09/2025): sinus rhythm with no acute ST?T changes - CXR (04/09/2025): Mild to moderate CHF, Mild to moderate enlargement cardiac contour. Prominent vascular congestion with perihilar basilar edema - Past Echo (01/31/2019): Normal left ventricular size , Approximate ejection fraction is 35%. , Trace to mild mitral and trace tricuspid regurgitation noted. Plan: -Hemodialysis because the main etiology of his condition is untreated CKD -TSH and Lipid panel -Strict ins and out -K>4 and Mg >2 replete with caution given worsening kidney functio -Daily weights #Primary Hypertension #Insulin-dependent type 2 diabetes #Hyperlipidemia -Management per Primary Hospitalist team Thank you for allowing us to participate in the care of your patient. Assessment and plan discussed with my attending physician Dr. Rubi Jones (PGY-1)- Internal medicine resident Attending Provider Attestation/Addendum Patient seen and examined with resident physician Dr. Jones. Note reviewed, agree with findings and recommendations. Well-known to me from my CKD clinic with advanced CKD Secondary to diabetic nephropathy. He has been refusing dialysis for the last 2 years. Came with a 3-day history of orthopnea, shortness of breath and not feeling well. Noted to have a GFR less than 10. Potassium elevated. Anemic. Agreed for dialysis. Renal replacement therapy options given-currently he chose hemodialysis. Dialysis catheter will be placed by IR. Dialysis orders- Hemodialysis for 2 hours, blood flow 200, dialysate flow 400, 2K, ultrafiltration 1 L, Epogen [id number], no heparin ordered. 1 unit irradiated PRBC ordered. Plan of care discussed with the dialysis nurse. Please see dialysis flowsheet for further details. Hep panel/PPD ordered. Outpatient dialysis to be arranged. Plan of care discussed with primary team. Thank you Dr. Kirk for allowing me to participate in the care of Mr. Ny
[2025-04-09] MEDS: HEPARIN SOD LOCK SYR 100 UNIT/ML 500 UNIT STFIELD (10:30)
[2025-04-09 10:41] LABS: Hepatitis A Antibody IgM Non Reactive (Non React); Hepatitis B Core Antibody IgM Non Reactive (Non React); Hepatitis B Surface Antigen Non Reactive (Non React); Hepatitis C Antibody Non Reactive (Non React)
[2025-04-09] MEDS: fentaNYL CIT INJ 50 mCg/ML AMP 2ML 75 MCG IVP (10:54)
[2025-04-09] MEDS: LIDOCAINE INJ PF 1% 5 ML VIAL 9 ML INFL (10:55)
[2025-04-09] MEDS: HEPARIN SOD INJ 1000 UNIT/ML VIAL 4100 UNIT INDWELLCAT (11:20)
--- NOTE | 2025-04-09 12:00 | PC.NURSE ---
RN (Devi) made aware of the change in patient's rhythm from sinus rhythm 70-80's to sinus tachy 110-114 post Dialysis catheter insertion. As per RN, Medical Team will be notified and get an order to monitor patient's heart rate closely, Patient left in room, no acute distress noted. Patient denies pain and discomfort at this time. Surgical site is asymptomatic.
--- NOTE | 2025-04-09 12:04 | PC.NURSE ---
Dr. Valdez made aware of the change in patient's rhythm from sinus rhythm 70-80's to sinus tachy 110-114 post Dialysis catheter insertion. As per Dr. Valdez, inform bedside nurse of this change for patient to be monitored closely for potential complications. Patient stable at this time.
--- NOTE | 2025-04-09 13:44 | PC.NURSE ---
informed Dr Tacos Deutsch at 1328 about pt hr in 120 since pt is back from dialysis cath placement. pt is not any chest pain or discomfort. stated to follow up with dialysis nurse because pt in need of dialysis due to fluid overload. Followed up with dialysis nurse at 1330. Dialysis nurse stated she will do dialysis at 1400.
--- NOTE | 2025-04-09 14:50 | ESPR_ITS ---
<Statement entered by Alexx Deutsch MD - 04/09/25 14:57> Overnight admission. Follows Dr. Ramon outpatient and admitted to initiate hemodialysis. BUN 62, creatinine 4.6, GFR 14. Underwent placement of right IJ permanent TDC and plan for first hemodialysis session today. Nephrology following and appreciate recommendations. CBC showed hemoglobin of 7.5 and given irradiated PRBCs. Reported by nursing staff to have elevated heart rate and EKG showed sinus tachycardia with heart rate 114 after placement of TDC. Otherwise, vital signs stable and discharge planning initiated for hemodialysis outpatient. ----- Note reviewed and agree with care plan as documented. Please refer to the note below for further details. Plan discussed with attending physician Dr. Reagan Deutsch MD PGY-2 Internal Medicine Documentation for date of: 04/09/25 Subjective Subjective Interval history: Patient was seen at bedside and examined. He complains of waking up in the middle of nights SOB, unable to get restful night sleep. Worsening during the past three days. Denies SOB with activity, orthopnea, or chest pain, or palpitations. Sleeps on one pillow at nights, but cannot lie flat lately. Patient states that he plans to travel to [place] at end of April, however, has been told that he needs HD as soon as possible by Dr Venegas. Exam Vital Signs Temp Pulse Resp BP Pulse Ox O2 Del Method O2 Flow Rate 98.0 F 79 18 139/81 H 95 Nasal Cannula 3 04/09/25 14:01 04/09/25 14:45 04/09/25 14:01 04/09/25 14:45 04/09/25 14:01 04/09/25 12:00 04/09/25 14:01 Narrative Exam General: Alert, no acute distress.Conversational and non-toxic appearing. Skin: Warm, dry, intact. No rash or ecchymoses. Head: Normocephalic, atraumatic. Eye: Normal conjunctiva, PERRL. Throat: Oral mucosa moist. No obvious lesions in oropharynx. Cardiovascular: Regular rate and rhythm, no murmur, +S1/S2. Respiratory: Moderately decreased air movement with wheezing and rales. Gastrointestinal: Soft, nontender, non-distended. No guarding or rebound tenderness. Extremities: +1 pitting edema bilaterally Neuro: Alert and oriented x3.No focal deficits observed. Conversant, moving all extremities. No overt cerebellar signs/incoordination. Psychiatric: Cooperative, appropriate affect Objective Labs 04/11/25 05:05 04/11/25 05:05 Labs: Laboratory Results - last 24 hr 04/09/25 04/09/25 04/09/25 01:24 01:35 02:28 WBC 5.1 RBC 2.44 L Hgb 7.4 L Hct 23.1 L MCV 95 MCH 30.3 MCHC 32.0 RDW Std Deviation 45.9 H Plt Count 176 Neut % (Auto) 71 Lymph % (Auto) 13 [place] % (Auto) 10 Eos % (Auto) 5 Baso % (Auto) 1 Neut # (Auto) 3.6 Lymph # (Auto) 0.7 L [place] # (Auto) 0.5 Eos # (Auto) 0.3 Baso # (Auto) 0.1 Immature Gran # (Auto) 0.01 H Absolute Nucleated RBC 0.00 Immature Gran % 0 Nucleated RBC % 0 PT INR APTT D-Dimer 776 H Puncture Site Right Radial ABG pH 7.40 ABG pCO2 39 ABG pO2 57 L* ABG HCO3 24 ABG O2 Saturation 91 ABG Base Excess -1 FiO2 21 Sodium 146 H Potassium 4.8 Chloride 109 H Carbon Dioxide 25.0 Anion Gap 12 BUN 60 H Creatinine 4.7 H* Estim Creat Clear Calc 18.8 L eGFR 14 L* BUN/Creatinine Ratio [address] Glu mg/dL Hemoglobin A1c Calculated Osmolality 313 H Calcium 8.7 Corrected Calcium 8.9 Magnesium 2.0 Total Bilirubin 0.4 Direct Bilirubin 0.2 AST 30 ALT 45 Alkaline Phosphatase 61 Troponin I 0.041 B-Natriuretic Peptide 699 H* Total Protein 5.9 Albumin 3.7 Globulin 2.2 L Albumin/Globulin Ratio 1.7 TSH 2.59 Ur Collection Type Clean Catch Urine Color Colorless A Urine Clarity Clear Urine pH 7.0 Ur Specific [place] 1.012 Urine Protein 2+ A Urine Glucose (UA) 4+ A Urine Ketones Negative Urine Blood 1+ A Urine Nitrite Negative Urine Bilirubin Negative Urine Urobilinogen (Auto) Negative Ur Leukocyte Esterase Negative Urine RBC 8 H Urine WBC 1 Ur Squamous Epith Cells 0 Urine Bacteria None Ur Culture Indicated? Not Indicated Hepatitis A IgM Ab Hep Bs Antigen Hep B Core IgM Ab Hepatitis C Antibody Blood Type Antibody Screen Crossmatch Blood Bank Wristband ID 04/09/25 04/09/25 04:43 09:10 WBC 5.1 RBC 2.48 L Hgb 7.5 L Hct 23.3 L MCV 94 MCH 30.2 MCHC 32.2 RDW Std Deviation 45.6 H Plt Count 177 Neut % (Auto) 91 H Lymph % (Auto) 5 L [place] % (Auto) 2 Eos % (Auto) 1 Baso % (Auto) 1 Neut # (Auto) 4.7 Lymph # (Auto) 0.3 L [place] # (Auto) 0.1 Eos # (Auto) 0.0 Baso # (Auto) 0.0 Immature Gran # (Auto) 0.02 H Absolute Nucleated RBC 0.00 Immature Gran % 0 Nucleated RBC % 0 PT 13.1 H INR 1.2 APTT 28.1 D-Dimer Puncture Site ABG pH ABG pCO2 ABG pO2 ABG HCO3 ABG O2 Saturation ABG Base Excess FiO2 Sodium 145 Potassium 5.3 H D Chloride 110 H Carbon Dioxide 24.9 Anion Gap 10 BUN 62 H Creatinine 4.6 H* Estim Creat Clear Calc 19.2 L eGFR 14 L* BUN/Creatinine Ratio [address]ucose [address] Glu mg/dL 143 H Hemoglobin A1c 6.6 H Calculated Osmolality 311 H Calcium 8.8 Corrected Calcium 9.0 Magnesium 2.0 Total Bilirubin 0.4 Direct Bilirubin AST 28 ALT 43 Alkaline Phosphatase 58 Troponin I B-Natriuretic Peptide Total Protein 6.0 Albumin 3.8 Globulin 2.2 L Albumin/Globulin Ratio 1.7 TSH Ur Collection Type Urine Color Urine Clarity Urine pH Ur Specific [place] Urine Protein Urine Glucose (UA) Urine Ketones Urine Blood Urine Nitrite Urine Bilirubin Urine Urobilinogen (Auto) Ur Leukocyte Esterase Urine RBC Urine WBC Ur Squamous Epith Cells Urine Bacteria Ur Culture Indicated? Hepatitis A IgM Ab Non Reactive Hep Bs Antigen Non Reactive Hep B Core IgM Ab Non Reactive Hepatitis C Antibody Non Reactive Blood Type A Positive Antibody Screen NEGATIVE Crossmatch See Detail Blood Bank Wristband ID Yes ABG Interpretation ABG results: 04/09/25 01:24 ABG pH 7.40 ABG pCO2 39 ABG pO2 57 L* ABG HCO3 24 ABG O2 Saturation 91 ABG Base Excess -1 Quality Measures Quality Measures none Assessment & Plan Assessment Current Active Medications: Generic Name Dose Route Start Last Admin Trade Name Freq PRN Reason Stop Dose Admin Epoetin Terry 10,000 unit 04/09/25 15:00 Epoetin Terry-Epbx Inj 10,000 Unit/Ml Vial (Esrd) SC 04/09/25 15:01 X1 ONE Heparin Sodium (Porcine) 5,000 unit 04/09/25 09:00 04/09/25 08:55 Heparin Sod Inj 5000 Unit/Ml Vial SC 04/23/25 08:59 5,000 unit BID CHARLES Administration Heparin Sodium (Porcine) 4,100 unit 04/09/25 14:34 Heparin Sod Inj 1000 Unit/Ml Vial 10 Ml INDWELLCAT 04/23/25 14:33 PRN PRN DIALYSIS Albumin Human 25 gm in 100 mls @ 100 mls/min 04/09/25 10:11 Albuminar-25 Ivpb IV PRN PRN DIALYSIS Insulin Degludec 20 unit 04/09/25 09:00 04/09/25 08:55 Insulin Degludec 5 Unit/0.05 Ml (Per 5 Units) OR 05/09/25 08:59 20 unit QDAY CHARLES Administration Insulin Degludec 15 unit 04/09/25 21:00 Insulin Degludec 5 Unit/0.05 Ml (Per 5 Units) OR 05/09/25 20:59 HS CHARLES Ondansetron HCl 4 mg 04/09/25 03:01 Ondansetron Inj 2 Mg/Ml Inj 2 Ml IVP 05/09/25 03:00 Q6H PRN NAUSEA OR VOMITING Protocol Plan Mr. Ny, he is a 59-year-old male with past medical history significant for hypertension, insulin-dependent type 2 diabetes, hyperlipidemia, CAD, CKD that presented to the ED on 04/09/25 with chief complaint of acute shortness of breath and high blood pressure. Admitted for acute possible fluid failure in the setting of worsening CKD. #Acute hypoxic respiratory failure 2/2 #Fluid overload in setting of #HFrEF (EF 35%) Patient presented with shortness of breath and is saturating 91% on 2 L nasal cannula. ABG was done and patient pO2 was significantly low at 57. Examination cardiac exam was sinus rhythm, however pulmonary exam was significant for wheezing throughout lungs and low breath sounds bilaterally. Patient sounds congested and fluid overloaded. Chest X-ray showed pulmonary vascular congestion perihilar basilar edema and mild to moderate CHF. Per chart review patient had cardiac angiogram done in 2019 in view of positive troponin and severe LL dysfunction EF 35%. Patient was transferred to [facility] for further management. On admission BNF 699, troponin were negative. Patient had no complains of chest pain, chest palpitation, paroxysmal nocturnal dyspnea. Patient clinical presentation, physical exam findings of volume overload suggest possible congestive heart failure exacerbation. Last ECHO on 01/31/19 show EF 35% Plan - Supplemental O2 as needed, wean as tolerated - Keep K > 4 and Mg > 2 - Consider getting a new TTE - Close monitor of cardiac symptoms #SAVI on CKD Stage V #Severe Anemia On admission creatinine 4.7, creatinine clearance 18.8, GFR 14, BUN 60. Pt kidney function has deteriorated from last hospitalization. Urgent dialysis is needed to stabilize patient kidney function. +IR placed a dialysis catheter. +First Dialysis today for 2h completed in PM Plan: - Nephrology Dr Venegas consulted, appreciate recs. - Patient is anemic. Will receive irradiated pRBC 1 unit, considering possible kidney transplant. -Avoid nephrotoxins, renally dose medications -Monitor renal panel - 1u of Hgb -Hold any YOSSI/ARB/diuretics #Primary Hypertension Patient hypertension continues to monitor home medication valsartan, metoprolol XL succinate. On admission BP was 176/76 for which patient received metoprolol tartrate 50 mg and clonidine 0.3. Plan - Continue to monitor vitals - Pending med recc #Insulin-dependent type 2 diabetes On admission glucose 196. A1c 6.6. The patient is on Jardiance, Januvia, 20 units degludec AM and 15 units p.m. Plan - ACHS glucose check - Started patient on 20 units degludec QDAY and 15 units HS #Hyperlipidemia History of HLD managed with home atorvastatin 80 mg. Last lipid panel on 02/01/19 triglyceride 172, cholesterol 214, LDL cholesterol 152, HLD cholesterol 28. Plan - Considered resuming home medications after dialysis - Pending med rec Hospital management: Lines: peripheral IV Diet: NPO Bowel: Senna DVT prophylaxis: heparin Sc Disposition: AHRF, SAVI on CKD management CODE STATUS: Full code This case was discussed with my attending physician, Dr. Kirk, and senior resident, Dr La Nena Balderrama. Frannie Thompson, DO PGY I Attending Provider Attestation/Addendum 59-year-old male with multiple comorbidities including hypertension, type 2 diabetes mellitus, hyperlipidemia and subsequent CAD, heart failure with reduced EF with EF 35%, and CKD who presented with shortness of breath found to have acute hypoxic respiratory failure secondary to fluid overload state with component of SAVI progressing to end-stage renal disease and component of heart failure with reduced EF with EF 35%. Plan to admit the patient and initiate hemodialysis for which patient will need 3 sessions and outpatient dialysis arrangement.I reviewed above note and agree with findings and plans. I have also personally examined the patient with medicine team and went over assessment and plan with medical team including international project manager and resident physician.
[2025-04-09] MEDS: EPOETIN ALFA-EPBX INJ 10,000 UNIT/ML VIAL (ESRD) 10000 UNIT SC (16:12)
[2025-04-09] MEDS: HEPARIN SOD INJ 1000 UNIT/ML VIAL 10 ML 4100 UNIT INDWELLCAT (16:40)
--- NOTE | 2025-04-09 21:19 | PC.NURSE ---
re med rec- Pt don't remember name of meds. Advised to have family bring med bottles from home in a.m.
[2025-04-09] MEDS: INSULIN DEGLUDEC 5 UNIT/0.05 ML (PER 5 UNITS) 15 UNIT SC (21:27)
[2025-04-10] VITALS (28 sets, daily range): BP systolic 142–190; BP diastolic 71–110; PULSE 56–77; RESP 16–96; TEMP 36.6–37.1; O2SAT 95–99
[2025-04-10 05:58] LABS: Basophils # (Auto) 0.0 Thou/mm3 (0.0-0.2); Basophils % (Auto) 0 % (0-2.5); Eosinophils # (Auto) 0.0 Thou/mm3 (0.0-0.5); Eosinophils % (Auto) 0 % (0-10); Hematocrit 23.6 % (41.0-53.0); Immature Granulocytes Auto 0.03 Thou/mm3 (0.00-0.00); Lymphocytes # (Auto) 0.6 Thou/mm3 (1.0-4.8); Lymphocytes % (Auto) 6 % (10-50); Mean Corpuscular HGB Conc 31.8 g/dl (31.0-37.0); Mean Corpuscular Hemoglobin 30.5 pg (25.0-35.0); Mean Corpuscular Volume 96 fL (80-100); Monocytes # (Auto) 0.6 Thou/mm3 (0.0-0.8); Monocytes % (Auto) 6 % (0-12); Neutrophils # (Auto) 8.5 Thou/mm3 (1.8-7.7); Neutrophils % (Auto) 88 % (37-80); Nucleated Red Blood Cell # 0.00 Thou/mm3 (0.00-0.00); Nucleated Red Blood Cell % 0 /100 WBC (0); Platelet Count 164 Thou/mm3 (140-440); RDW Standard Deviation 46.0 fL (35.1-43.9); Red Blood Count 2.46 Miln/mm3 (4.50-5.90); White Blood Count 9.7 Thou/mm3 (3.8-10.6)
[2025-04-10 06:00] LABS: Anion Gap 10 (7-16); BUN/Creatinine Ratio 11 Ratio (12-20); Blood Urea Nitrogen 51 mg/dL (9-23); Carbon Dioxide 27.6 mMol/L (20.0-31.0); Chloride 107 mMol/L (98-107); Creatinine (Component) 4.6 mg/dL (0.6-1.3); Potassium 4.9 mMol/L (3.4-5.1); Sodium 145 mMol/L (136-145)
[2025-04-10 06:01] LABS: Alanine Aminotransferase 30 U/L (10-49); Albumin, Serum 3.6 gm/dL (3.5-5.0); Albumin/Globulin Ratio 1.6 (1.2-2.2); Alkaline Phosphatase 53 U/L (46-116); Aspartate Amino Transferase 13 U/L (0-34); Bilirubin,Total 0.4 mg/dL (0.3-1.2); Calcium 8.8 mg/dL (8.3-10.6); Calcium (Corrected) 9.1 mg/dL (8.5-10.1); Estimated Creatinine Clearance 19.6 mL/min (>60); Globulin 2.2 gm/dL (2.3-3.5); Glucose 149 mg/dL (74-106); Magnesium 2.1 mg/dL (1.6-2.6); Osmolality,Calculated 305 (275-295); Phosphorous 5.2 mg/dL (2.4-5.1); Total Protein 5.8 gm/dL (5.7-8.2); eGFR 14 See Note
[2025-04-10 06:02] LABS: Hemoglobin 7.5 g/dL (13.5-16.0)
--- NOTE | 2025-04-10 08:17 | PD.RESPRO ---
Documentation for date of: 04/10/25 Subjective Subjective Interval history: Reason for consult: ESRD-need for dialysis History of present illness: 59y/o M with PMH of diabetes, HTN, high cholesterol, CKD presented to the hospital on 04/09/2025 due to worsening shortness of breathe at night. Patient noticed swelling in his bilateral feet 15 days ago. Starting 3 days ago, he was unable to go to sleep due to sudden onset of shortness of breathe that wakes him up the moment he falls asleep. He also couldn't lie flat on bed. He didn't have any problems walking during the day. Denies chest pain, palpitations, N/V, headache or dizziness, dysuria, or blood in the urine.?Patient has CKD requiring dialysis, which the patient has refused.Patient has been admitted for management of SAVI on CKD requiring dialysis and CHF exacerbation. ED course: -Initial vitals were BP 170 [place], pulse 89, RR 20, temp 98.5, O2 sat 91% on NC -Labs significant For hemoglobin at 7.4, hematocrit 23.1, D-dimer 776, ABG was significant for PaO2 57, and a 146, chloride 119, bun 60, creatinine 4.7, estimated creatinine clearance 18.8, eGFR of 14, glucose 212, BNP 699, globulin 2.2. UA showed 2+ protein, 4+ glucose, 8+ RBC. -Imaging included chest x-ray showed mild to moderate CHF, pulmonary vascular congestion with perihilar basilar edema. -In the ED, patient was given Dilaudid 15 mg, methylprednisolone 125 mg, clonidine 0.3, DuoNeb. -Patient was admitted for acute hypoxic respiratory failure and CKD evaluation and management. Medical history: As stated above Surgical history: Appendectomy Allergies: NKDA Medications: Pending official med rec Family history: All his family members have Diabetes Social history: Denies smoking cigarettes, drinking alcohol or using other illicit drugs 04/09/2025: Labs reviewed and patient examined at the bedside. Patient received hemodialysis today. Planned to receive irradiated pRBC 1 unit along with hemodialysis. TB test and Hep panel ordered. BUN 62, Cr:4.6 , eGFR: 14, BNP:699 Hgb: 7.5. 04/10/2025: Labs reviewed and patient examined at the bedside. Overall patient feels slightly better. No other complaints. Patient planned for second hemodialysis today. Third dialysis planned for tomorrow. After third dialysis, will plan to schedule outpatient hemodialysis sessions. Patient did not receive irradiated pRBC yesterday. Will receive today during hemodialysis. BUN 51, Cr:4.6 , eGFR: 14, Hgb: 7.5. Exam Vital Signs Temp Pulse Resp BP Pulse Ox O2 Del Method O2 Flow Rate 97.8 F 64 18 166/85 H 95 Nasal Cannula 2 04/10/25 08:09 04/10/25 08:15 04/10/25 08:09 04/10/25 08:15 04/10/25 08:09 04/10/25 08:05 04/10/25 08:09 Narrative Exam General: No acute distress, well nourished, AAO x3 Eye: PERRL, EOMI, normal conjunctiva, no scleral icterus HENT: Normocephalic, atraumatic, hearing intact to conversation at normal volume, moist oral mucosa Neck: Supple, non-tender, no JVD, no lymphadenopathy Lungs: Non-labored respirations, symmetric chest rise, Clear to auscultate bilaterally, No wheezing, rhonchi, crackles Heart: Peripheral pulses intact bilaterally, Regular Rate and Rhythm Abdomen: Soft, non-tender, non-distended, no palpable masses Musculoskeletal: Normal range of motion and strength, No visible joint swelling, +1 pitting edema BLE Skin: Skin is warm, dry, no rashes or lesions. Psychiatric: Cooperative, appropriate mood and affect, Awake and alert, not agitated Neuro: Cranial nerves II-XII grossly intact. Strength 5/5 throughout. Sensations intact to light touch. Objective Labs 04/11/25 05:05 04/11/25 05:05 Labs: Laboratory Results - last 24 hr 04/09/25 04/09/25 04/10/25 04:43 09:10 04:55 WBC 9.7 D RBC 2.46 L Hgb 7.5 L Hct 23.6 L MCV 96 MCH 30.5 MCHC 31.8 RDW Std Deviation 46.0 H Plt Count 164 Neut % (Auto) 88 H Lymph % (Auto) 6 L [place] % (Auto) 6 Eos % (Auto) 0 Baso % (Auto) 0 Neut # (Auto) 8.5 H Lymph # (Auto) 0.6 L [place] # (Auto) 0.6 Eos # (Auto) 0.0 Baso # (Auto) 0.0 Immature Gran # (Auto) 0.03 H Absolute Nucleated RBC 0.00 Immature Gran % 0 Nucleated RBC % 0 PT 13.1 H INR 1.2 APTT 28.1 Sodium 145 Potassium 4.9 Chloride 107 Carbon Dioxide 27.6 Anion Gap 10 BUN 51 H Creatinine 4.6 H* Estim Creat Clear Calc 19.6 L eGFR 14 L* BUN/Creatinine Ratio 11 L Glucose 149 H Calculated Osmolality 305 H Calcium 8.8 Corrected Calcium 9.1 Phosphorus 5.2 H Magnesium 2.1 Total Bilirubin 0.4 AST 13 ALT 30 Alkaline Phosphatase 53 Total Protein 5.8 Albumin 3.6 Globulin 2.2 L Albumin/Globulin Ratio 1.6 Hepatitis A IgM Ab Non Reactive Hep Bs Antigen Non Reactive Hep B Core IgM Ab Non Reactive Hepatitis C Antibody Non Reactive Blood Type A Positive Antibody Screen NEGATIVE Crossmatch See Detail Blood Bank Wristband ID Yes ABG Interpretation ABG results: 04/09/25 01:24 ABG pH 7.40 ABG pCO2 39 ABG pO2 57 L* ABG HCO3 24 ABG O2 Saturation 91 ABG Base Excess -1 Quality Measures Quality Measures none Assessment & Plan Assessment Current Active Medications: Generic Name Dose Route Start Last Admin Trade Name Freq PRN Reason Stop Dose Admin Heparin Sodium (Porcine) 5,000 unit 04/09/25 09:00 04/09/25 21:07 Heparin Sod Inj 5000 Unit/Ml Vial SC 04/23/25 08:59 5,000 unit BID CHARLES Administration Heparin Sodium (Porcine) 4,100 unit 04/09/25 14:34 04/09/25 16:40 Heparin Sod Inj 1000 Unit/Ml Vial 10 Ml INDWELLCAT 04/23/25 14:33 4,100 unit PRN PRN Administration DIALYSIS Albumin Human 25 gm in 100 mls @ 100 mls/min 04/09/25 10:11 Albuminar-25 Ivpb IV PRN PRN DIALYSIS Insulin Degludec 20 unit 04/09/25 09:00 04/09/25 08:55 Insulin Degludec 5 Unit/0.05 Ml (Per 5 Units) MI 05/09/25 08:59 20 unit QDAY CHARLES Administration Insulin Degludec 15 unit 04/09/25 21:00 04/09/25 21:27 Insulin Degludec 5 Unit/0.05 Ml (Per 5 Units) SC 05/09/25 20:59 15 unit HS CHARLES Administration Ondansetron HCl 4 mg 04/09/25 03:01 Ondansetron Inj 2 Mg/Ml Inj 2 Ml IVP 05/09/25 03:00 Q6H PRN NAUSEA OR VOMITING Protocol Plan 59y/o M with PMH of diabetes, HTN, high cholesterol, CKD presented to the hospital on 04/09/2025 due to worsening shortness of breathe at night. Patient has been admitted for management of SAVI on CKD requiring dialysis and CHF exacerbation. # SAVI on Chronic Kidney Disease Stage 5 # Severe anemia On admission: BUN 62 , Cr:4.6 , eGFR: 14, BNP:699 Hgb: 7.5 - Past Renal ultrasound (01/26/2024): Bilateral renal cortical thinning, Moderate bilateral renal parenchymal scar formation, Mid prostate nodule 13 x 19 x 26 mm, recommend correlation with PSA and follow-up transrectal prostate sonography -On admission, the patient unable to sleep at home laying flat and sudden shortness of breathe the moment he falls asleep -His poor renal function likely caused CHF, resulting in fluid overload as evidenced by BNP levels. -Was offered dialysis, but patient refused. -Patient is a good candidate for kidney transplant considering his relatively young age. -Currently, BUN 51, Cr:4.6 , eGFR: 14, Hgb: 7.5. -Hemodialysis sessions: 04/09, 04/10 ?Plan: - Patient planned for Second hemodialysis today. Third dialysis planned tomorrow. After third dialysis, will plan to schedule outpatient hemodialysis sessions. - Patient is anemic. Patient did not receive irradiated pRBC yesterday. Planned to receive today during hemodialysis. - Nephrology will continue to follow - Avoid nephrotoxic and renally dose medications, strict ins and outs #Acute hypoxemic respiratory failure #Acute CHF exacerbation #2/2 volume overload from CKD stage 5 #Hx of HFrE, EF 35% (01/31/2019) - Presenting with several days of lower extremity swelling, PND, and orthopnea. -Symptoms suggestive of acute CHF - EKG (04/09/2025): sinus rhythm with no acute ST?T changes - CXR (04/09/2025): Mild to moderate CHF, Mild to moderate enlargement cardiac contour. Prominent vascular congestion with perihilar basilar edema - Past Echo (01/31/2019): Normal left ventricular size , Approximate ejection fraction is 35%. , Trace to mild mitral and trace tricuspid regurgitation noted. Plan: -Hemodialysis because the main etiology of his condition is untreated CKD -TSH and Lipid panel -Strict ins and out -K>4 and Mg >2 replete with caution given worsening kidney functio -Daily weights #Primary Hypertension #Insulin-dependent type 2 diabetes #Hyperlipidemia -Management per Primary Hospitalist team Thank you for allowing us to participate in the care of your patient. Assessment and plan discussed with my attending physician Dr. Rubi Jones (PGY-1)- Internal medicine resident Attending Provider Attestation/Addendum Patient seen and examined with resident physician Dr. Jones. Note reviewed, agree with findings and recommendations. Well-known to me from my CKD clinic with advanced CKD Secondary to diabetic nephropathy. He has been refusing dialysis for the last 2 years. Came with a 3-day history of orthopnea, shortness of breath and not feeling well. Noted to have a GFR less than 10. Potassium elevated. Anemic. Agreed for dialysis. Renal replacement therapy options given-currently he chose hemodialysis. Dialysis catheter was placed by IR. Patient currently seen on his second dialysis session. Tolerating without any problems. Hemodialysis for 2.5 hours, blood flow 200, dialysate flow 400, 2K, ultrafiltration 1 L, Epogen [id number], no heparin ordered. 1 unit irradiated PRBC will be transfused today Plan of care discussed with the dialysis nurse. Please see dialysis flowsheet for further details. Hep panel negative, PPD placed outpatient dialysis to be arranged. Plan of care discussed with primary team. After third session tomorrow he can be discharged.
[2025-04-10] MEDS: HEPARIN SOD INJ 1000 UNIT/ML VIAL 10 ML 4100 UNIT INDWELLCAT (10:53)
--- NOTE | 2025-04-10 11:19 | PC.NURSE ---
call to pharmacy, [email or web address]
[2025-04-10] MEDS: HEPARIN SOD INJ 5000 UNIT/ML VIAL SC ×2 (11:24→20:35)
[2025-04-10] MEDS: INSULIN DEGLUDEC 5 UNIT/0.05 ML (PER 5 UNITS) 20 UNIT SC (11:25)
--- NOTE | 2025-04-10 11:49 | ESPR_ITS ---
<Statement entered by Alexx Deutsch MD - 04/10/25 13:46> No acute overnight events. Seen and examined during second session of hemodialysis and received 1 unit irradiated PRBC and tolerating well. Needs 1 more session of hemodialysis and will then pend outpatient chair. Vital signs stable, hemoglobin stable at 7.5, and CHEM panel consistent with ESRD. Nephrology following, appreciate recommendations. ----- Note reviewed and agree with care plan as documented. Please refer to the note below for further details. Plan discussed with attending physician Dr. Reagan Deutsch MD PGY-2 Internal Medicine Documentation for date of: 04/10/25 Subjective Subjective Interval history: Patient went for dialysis today and received 1 unit of blood. He was seen and examined after his dialysis session. He denied chest pain, shortness of breath, or palpitations. He was saturating at 95% on 2 L nasal cannula. Exam Vital Signs Temp Pulse Resp BP Pulse Ox O2 Del Method O2 Flow Rate 97.8 F 65 18 171/94 H 95 Nasal Cannula 2 04/10/25 10:50 04/10/25 10:50 04/10/25 10:50 04/10/25 10:50 04/10/25 10:50 04/10/25 08:05 04/10/25 10:50 Narrative Exam General: Chronically ill-appearing man. Awake and in no acute distress. Neurologic: GCS 15. Alert and oriented x3, no gross neurological deficit, and patient able to move all 4 extremities. HEENT: Normocephalic, atraumatic, mucous membranes moist. Pupils reactive to light. Heart: Regular rate and rhythm, normal S1 and S2, no murmurs. Lungs: Decreased air movement with wheezes and rales bilaterally Abdomen: Soft, nondistended, nontender, positive bowel sounds. No guarding or rebound tenderness. Extremities: 1+ pitting edema in the lower extremities bilaterally. 2+ radial and dorsalis pedis pulses bilaterally. Skin: Warm. Dry. No rash or ecchymoses. Objective Labs 04/11/25 05:05 04/11/25 05:05 Labs: Laboratory Results - last 24 hr 04/09/25 04/10/25 09:10 04:55 WBC 9.7 D RBC 2.46 L Hgb 7.5 L Hct 23.6 L MCV 96 MCH 30.5 MCHC 31.8 RDW Std Deviation 46.0 H Plt Count 164 Neut % (Auto) 88 H Lymph % (Auto) 6 L [place] % (Auto) 6 Eos % (Auto) 0 Baso % (Auto) 0 Neut # (Auto) 8.5 H Lymph # (Auto) 0.6 L [place] # (Auto) 0.6 Eos # (Auto) 0.0 Baso # (Auto) 0.0 Immature Gran # (Auto) 0.03 H Absolute Nucleated RBC 0.00 Immature Gran % 0 Nucleated RBC % 0 Sodium 145 Potassium 4.9 Chloride 107 Carbon Dioxide 27.6 Anion Gap 10 BUN 51 H Creatinine 4.6 H* Estim Creat Clear Calc 19.6 L eGFR 14 L* BUN/Creatinine Ratio 11 L Glucose 149 H Calculated Osmolality 305 H Calcium 8.8 Corrected Calcium 9.1 Phosphorus 5.2 H Magnesium 2.1 Total Bilirubin 0.4 AST 13 ALT 30 Alkaline Phosphatase 53 Total Protein 5.8 Albumin 3.6 Globulin 2.2 L Albumin/Globulin Ratio 1.6 Blood Type A Positive Antibody Screen NEGATIVE Crossmatch See Detail Blood Bank Wristband ID Yes ABG Interpretation ABG results: 04/09/25 01:24 ABG pH 7.40 ABG pCO2 39 ABG pO2 57 L* ABG HCO3 24 ABG O2 Saturation 91 ABG Base Excess -1 Quality Measures Quality Measures none Assessment & Plan Assessment Current Active Medications: Generic Name Dose Route Start Last Admin Trade Name Freq PRN Reason Stop Dose Admin Heparin Sodium (Porcine) 5,000 unit 04/09/25 09:00 04/10/25 11:24 Heparin Sod Inj 5000 Unit/Ml Vial SC 04/23/25 08:59 5,000 unit BID CHARLES Administration Heparin Sodium (Porcine) 4,100 unit 04/09/25 14:34 04/10/25 10:53 Heparin Sod Inj 1000 Unit/Ml Vial 10 Ml INDWELLCAT 04/23/25 14:33 4,100 unit PRN PRN Administration DIALYSIS Albumin Human 25 gm in 100 mls @ 100 mls/min 04/09/25 10:11 Albuminar-25 Ivpb IV PRN PRN DIALYSIS Insulin Degludec 20 unit 04/09/25 09:00 04/10/25 11:25 Insulin Degludec 5 Unit/0.05 Ml (Per 5 Units) SC 05/09/25 08:59 20 unit QDAY CHARLES Administration Insulin Degludec 15 unit 04/09/25 21:00 04/09/25 21:27 Insulin Degludec 5 Unit/0.05 Ml (Per 5 Units) SC 05/09/25 20:59 15 unit HS CHARLES Administration Ondansetron HCl 4 mg 04/09/25 03:01 Ondansetron Inj 2 Mg/Ml Inj 2 Ml IVP 05/09/25 03:00 Q6H PRN NAUSEA OR VOMITING Protocol Plan Summary: Mr. Ny, he is a 59-year-old male with past medical history significant for hypertension, insulin-dependent type 2 diabetes, hyperlipidemia, CAD, CKD that presented to the ED on 04/09/25 with chief complaint of acute shortness of breath and high blood pressure. Admitted for acute possible fluid failure in the setting of worsening CKD. #Acute hypoxic respiratory failure 2/ #Fluid overload in setting of #HFrEF (EF 35%) Patient presented initially with shortness of breath and was saturating 91% on 2 L nasal cannula. ABG was done and patient pO2 was significantly low at 57. Cardiac exam had a sinus rhythm, however pulmonary exam was significant for wheezing throughout lungs and low breath sounds bilaterally. Patient sounds congested and fluid overloaded. Chest X-ray showed pulmonary vascular congestion perihilar basilar edema and mild to moderate CHF. Per chart review patient had cardiac angiogram done in 2019 in view of positive troponin and severe LL dysfunction EF 35%. Patient was transferred to [facility] for further management. On admission BNF 699, troponins were negative. Patient had no complains of chest pain, chest palpitation, paroxysmal nocturnal dyspnea. Patient clinical presentation, physical exam findings of volume overload suggest possible congestive heart failure exacerbation. Last ECHO on 01/31/19 show EF 35% Plan - Continue supplemental O2 as needed, wean as tolerated - Keep K > 4 and Mg > 2 - Consider getting a new TTE - Close monitor of cardiac symptoms #SAVI on CKD Stage V #Severe Anemia On admission creatinine 4.7, creatinine clearance 18.8, GFR 14, BUN 60. Pt kidney function has deteriorated from last hospitalization. +IR placed a dialysis catheter. First of 3 dialysis sessions performed today, the patient reported no pain and tolerated the session well, 1.8 L of fluid were removed, 1 unit of irradiated PRBCs was transfused, presession hemoglobin was 7.5 Plan: - Nephrology Dr Venegas consulted, appreciate recs. - Patient is a kidney transplant candidate, follow-up outpatient -Avoid nephrotoxins, renally dose medications -Monitor renal panel -Continue to hold any YOSSI/ARB/diuretics #Primary Hypertension Patient takes hydralazine 50 mg p.o. twice daily, metoprolol 50 mg p.o. daily for blood pressure at home On admission BP was 176/76 for which patient received metoprolol tartrate 50 mg and clonidine 0.3. Plan - Holding home blood pressure medications, dialysis today #Insulin-dependent type 2 diabetes On admission glucose 196. A1c 6.6. The patient is on Jardiance, Januvia, 20 units degludec AM and 15 units p.m. Plan - Continue degludec 20 units in the morning, 15 units at night - [facility] glucose check #Hyperlipidemia Last lipid panel on 02/01/19 triglyceride 172, cholesterol 214, LDL cholesterol 152, HLD cholesterol 28. Reordered lipid panel in house Plan - Restarted home atorvastatin 80 mg - Follow-up lipid panel Hospital management: Lines: peripheral IV Diet: Renal diet DVT prophylaxis: heparin Sc Disposition: AHRF, SAVI on CKD management, continuing supplemental oxygen as needed, went for 1 of 3 required dialysis sessions today 04/10/2025, received 1 unit of irradiated RBCs during the session and tolerated the session well. CODE STATUS: Full code This case was discussed with my attending physician Dr. Reagan CHAN and senior resident, Dr La Nena CHAN PGY-2. Ron Strickland DO Attending Provider Attestation/Addendum 59-year-old male with multiple comorbidities including hypertension, type 2 diabetes mellitus, hyperlipidemia and subsequent CAD, heart failure with reduced EF with EF 35%, and CKD who presented with shortness of breath found to have acute hypoxic respiratory failure secondary to fluid overload state with component of SAVI progressing to end-stage renal disease and component of heart failure with reduced EF with EF 35%. Plan to admit the patient and initiate hemodialysis for which patient will need 3 sessions and outpatient dialysis arrangement.I reviewed above note and agree with findings and plans. I have also personally examined the patient with medicine team and went over assessment and plan with medical team including undergraduate intern and resident physician.
[2025-04-10 12:01] LABS: Hepatitis A Antibody IgM Non Reactive (Non React); Hepatitis B Core Antibody IgM Non Reactive (Non React); Hepatitis B Surface Antigen Non Reactive (Non React); Hepatitis C Antibody Non Reactive (Non React)
[2025-04-10 12:03] LABS: HIV (1&2) Antibody Rapid Non-Reactive
[2025-04-10 12:14] LABS: Quantiferon-TB* See Sep Rpt
[2025-04-10] MEDS: INSULIN DEGLUDEC 5 UNIT/0.05 ML (PER 5 UNITS) 15 UNIT SC (20:42)
[2025-04-11] VITALS (26 sets, daily range): BP systolic 152–178; BP diastolic 74–99; PULSE 61–93; RESP 15–93; TEMP 36–36.7; O2SAT 92–99
[2025-04-11 05:58] LABS: Basophils # (Auto) 0.1 Thou/mm3 (0.0-0.2); Basophils % (Auto) 1 % (0-2.5); Eosinophils # (Auto) 0.2 Thou/mm3 (0.0-0.5); Eosinophils % (Auto) 2 % (0-10); Hematocrit 28.9 % (41.0-53.0); Hemoglobin 9.2 g/dL (13.5-16.0); Immature Granulocytes Auto 0.03 Thou/mm3 (0.00-0.00); Lymphocytes # (Auto) 1.2 Thou/mm3 (1.0-4.8); Lymphocytes % (Auto) 15 % (10-50); Mean Corpuscular HGB Conc 31.8 g/dl (31.0-37.0); Mean Corpuscular Hemoglobin 30.2 pg (25.0-35.0); Mean Corpuscular Volume 95 fL (80-100); Monocytes # (Auto) 0.7 Thou/mm3 (0.0-0.8); Monocytes % (Auto) 9 % (0-12); Neutrophils # (Auto) 5.6 Thou/mm3 (1.8-7.7); Neutrophils % (Auto) 73 % (37-80); Nucleated Red Blood Cell # 0.00 Thou/mm3 (0.00-0.00); Nucleated Red Blood Cell % 0 /100 WBC (0); Platelet Count 164 Thou/mm3 (140-440); RDW Standard Deviation 48.5 fL (35.1-43.9); Red Blood Count 3.05 Miln/mm3 (4.50-5.90); White Blood Count 7.7 Thou/mm3 (3.8-10.6)
[2025-04-11 06:35] LABS: Alanine Aminotransferase 27 U/L (10-49); Albumin, Serum 3.7 gm/dL (3.5-5.0); Albumin/Globulin Ratio 1.6 (1.2-2.2); Alkaline Phosphatase 52 U/L (46-116); Anion Gap 11 (7-16); Aspartate Amino Transferase 15 U/L (0-34); BUN/Creatinine Ratio 12 Ratio (12-20); Bilirubin,Total 0.5 mg/dL (0.3-1.2); Blood Urea Nitrogen 43 mg/dL (9-23); Calcium 8.7 mg/dL (8.3-10.6); Calcium (Corrected) 8.9 mg/dL (8.5-10.1); Carbon Dioxide 28.5 mMol/L (20.0-31.0); Cardiac Risk Estimate 2.8 RATIO (4.0-6.7); Chloride 105 mMol/L (98-107); Cholesterol 109 mg/dL (132-200); Creatinine (Component) 3.5 mg/dL (0.6-1.3); Estimated Creatinine Clearance 25.9 mL/min (>60); Globulin 2.3 gm/dL (2.3-3.5); HDL Cholesterol 39 mg/dL (40-60); LDL Cholesterol,Calculated 57 mg/dL (0-130); Magnesium 1.9 mg/dL (1.6-2.6); Osmolality,Calculated 294 (275-295); Phosphorous 4.1 mg/dL (2.4-5.1); Potassium 4.1 mMol/L (3.4-5.1); Sodium 144 mMol/L (136-145); Total Protein 6.0 gm/dL (5.7-8.2); Triglycerides 67 mg/dL (30-150); eGFR 19 See Note
[2025-04-11 06:43] LABS: Glucose 47 mg/dL (74-106)
--- NOTE | 2025-04-11 08:30 | ESPR_ITS ---
Documentation for date of: 04/11/25 Subjective Subjective Interval history: Reason for consult: ESRD-need for dialysis History of present illness: 59y/o M with PMH of diabetes, HTN, high cholesterol, CKD presented to the hospital on 04/09/2025 due to worsening shortness of breathe at night. Patient noticed swelling in his bilateral feet 15 days ago. Starting 3 days ago, he was unable to go to sleep due to sudden onset of shortness of breathe that wakes him up the moment he falls asleep. He also couldn't lie flat on bed. He didn't have any problems walking during the day. Denies chest pain, palpitations, N/V, headache or dizziness, dysuria, or blood in the urine.?Patient has CKD requiring dialysis, which the patient has refused.Patient has been admitted for management of SAVI on CKD requiring dialysis and CHF exacerbation. ED course: -Initial vitals were BP 170 [place], pulse 89, RR 20, temp 98.5, O2 sat 91% on NC -Labs significant For hemoglobin at 7.4, hematocrit 23.1, D-dimer 776, ABG was significant for PaO2 57, and a 146, chloride 119, bun 60, creatinine 4.7, estimated creatinine clearance 18.8, eGFR of 14, glucose 212, BNP 699, globulin 2.2. UA showed 2+ protein, 4+ glucose, 8+ RBC. -Imaging included chest x-ray showed mild to moderate CHF, pulmonary vascular congestion with perihilar basilar edema. -In the ED, patient was given Dilaudid 15 mg, methylprednisolone 125 mg, clonidine 0.3, DuoNeb. -Patient was admitted for acute hypoxic respiratory failure and CKD evaluation and management. Medical history: As stated above Surgical history: Appendectomy Allergies: NKDA Medications: Pending official med rec Family history: All his family members have Diabetes Social history: Denies smoking cigarettes, drinking alcohol or using other illicit drugs 04/09/2025: Labs reviewed and patient examined at the bedside. Patient received hemodialysis today. Planned to receive irradiated pRBC 1 unit along with hemodialysis. TB test and Hep panel ordered. BUN 62, Cr:4.6 , eGFR: 14, BNP:699 Hgb: 7.5. 04/10/2025: Labs reviewed and patient examined at the bedside. Overall patient feels slightly better. No other complaints. Patient planned for second hemodialysis today. Third dialysis planned for tomorrow. After third dialysis, will plan to schedule outpatient hemodialysis sessions. Patient did not receive irradiated pRBC yesterday. Will receive today during hemodialysis. BUN 51, Cr:4.6 , eGFR: 14, Hgb: 7.5. 04/11/2025: Labs reviewed and patient examined at the bedside. Patient feels much better. No other complaints. Patient will receive his third hemodialysis today. Currently waiting for outpatient hemodialysis chair. Once set, safe to discharge. Yesterday, patient received 1 units of irradiated pRBC during hemodialysis session. BUN: 43, Cr:3.5, eGFR: 19, Hgb: 9.2 Exam Vital Signs Temp Pulse Resp BP Pulse Ox O2 Del Method O2 Flow Rate 97.6 F 67 16 161/89 H 98 Nasal Cannula 1 04/11/25 08:00 04/11/25 08:00 04/11/25 08:00 04/11/25 08:00 04/11/25 08:00 04/11/25 08:00 04/11/25 08:00 Narrative Exam General: No acute distress, well nourished, AAO x3 Eye: PERRL, EOMI, normal conjunctiva, no scleral icterus HENT: Normocephalic, atraumatic, hearing intact to conversation at normal volume, moist oral mucosa Neck: Supple, non-tender, no JVD, no lymphadenopathy Lungs: Non-labored respirations, symmetric chest rise, Clear to auscultate bilaterally, No wheezing, rhonchi, crackles Heart: Peripheral pulses intact bilaterally, Regular Rate and Rhythm Abdomen: Soft, non-tender, non-distended, no palpable masses Musculoskeletal: Normal range of motion and strength, No visible joint swelling, Minimal edema bilaterally Skin: Skin is warm, dry, no rashes or lesions. Psychiatric: Cooperative, appropriate mood and affect, Awake and alert, not agitated Neuro: Cranial nerves II-XII grossly intact. Strength 5/5 throughout. Sensations intact to light touch. Objective Labs 04/11/25 05:05 04/11/25 05:05 Labs: Laboratory Results - last 24 hr 04/09/25 04/10/25 04/11/25 09:10 04:55 05:05 WBC 7.7 RBC 3.05 L Hgb 9.2 L D Hct 28.9 L MCV 95 MCH 30.2 MCHC 31.8 RDW Std Deviation 48.5 H Plt Count 164 Neut % (Auto) 73 Lymph % (Auto) 15 [place] % (Auto) 9 Eos % (Auto) 2 Baso % (Auto) 1 Neut # (Auto) 5.6 Lymph # (Auto) 1.2 [place] # (Auto) 0.7 Eos # (Auto) 0.2 Baso # (Auto) 0.1 Immature Gran # (Auto) 0.03 H Absolute Nucleated RBC 0.00 Immature Gran % 0 Nucleated RBC % 0 Sodium 144 Potassium 4.1 D Chloride 105 Carbon Dioxide 28.5 Anion Gap 11 BUN 43 H Creatinine 3.5 H D Estim Creat Clear Calc 25.9 L eGFR 19 L BUN/Creatinine Ratio 12 Glucose 47 L* D Calculated Osmolality 294 Calcium 8.7 Corrected Calcium 8.9 Phosphorus 4.1 Magnesium 1.9 Total Bilirubin 0.5 AST 15 ALT 27 Alkaline Phosphatase 52 Total Protein 6.0 Albumin 3.7 Globulin 2.3 Albumin/Globulin Ratio 1.6 Triglycerides 67 Cholesterol 109 L LDL Cholesterol, Calc 57 HDL Cholesterol 39 L Cholesterol/HDL Ratio 2.8 L Hepatitis A IgM Ab Non Reactive Hep Bs Antigen Non Reactive Hep B Core IgM Ab Non Reactive Hepatitis C Antibody Non Reactive HIV 1&2 Antibody Rapid Non-Reactive Crossmatch See Detail ABG Interpretation ABG results: 04/09/25 01:24 ABG pH 7.40 ABG pCO2 39 ABG pO2 57 L* ABG HCO3 24 ABG O2 Saturation 91 ABG Base Excess -1 Quality Measures Quality Measures none Assessment & Plan Assessment Current Active Medications: Generic Name Dose Route Start Last Admin Trade Name Wilburq PRN Reason Stop Dose Admin Atorvastatin Calcium 80 mg 04/11/25 09:00 Atorvastatin Calcium 20 Mg Tablet PO 05/11/25 08:59 QDAY CHARLES Heparin Sodium (Porcine) 5,000 unit 04/09/25 09:00 04/10/25 20:35 Heparin Sod Inj 5000 Unit/Ml Vial SC 04/23/25 08:59 5,000 unit BID CHARLES Administration Heparin Sodium (Porcine) 4,100 unit 04/09/25 14:34 04/10/25 10:53 Heparin Sod Inj 1000 Unit/Ml Vial 10 Ml INDWELLCAT 04/23/25 14:33 4,100 unit PRN PRN Administration DIALYSIS Albumin Human 25 gm in 100 mls @ 100 mls/min 04/09/25 10:11 Albuminar-25 Ivpb IV PRN PRN DIALYSIS Insulin Degludec 20 unit 04/09/25 09:00 04/10/25 11:25 Insulin Degludec 5 Unit/0.05 Ml (Per 5 Units) SC 05/09/25 08:59 20 unit QDAY CHARLES Administration Insulin Degludec 15 unit 04/09/25 21:00 04/10/25 20:42 Insulin Degludec 5 Unit/0.05 Ml (Per 5 Units) SC 05/09/25 20:59 15 unit HS CHARLES Administration Ondansetron HCl 4 mg 04/09/25 03:01 Ondansetron Inj 2 Mg/Ml Inj 2 Ml IVP 05/09/25 03:00 Q6H PRN NAUSEA OR VOMITING Protocol Plan 59y/o M with PMH of diabetes, HTN, high cholesterol, CKD presented to the hospital on 04/09/2025 due to worsening shortness of breathe at night. Patient has been admitted for management of SAVI on CKD requiring dialysis and CHF exacerbation. # SAVI on Chronic Kidney Disease Stage 5 # Severe anemia On admission: BUN 62 , Cr:4.6 , eGFR: 14, BNP:699 Hgb: 7.5 - Past Renal ultrasound (01/26/2024): Bilateral renal cortical thinning, Moderate bilateral renal parenchymal scar formation, Mid prostate nodule 13 x 19 x 26 mm, recommend correlation with PSA and follow-up transrectal prostate sonography -On admission, the patient unable to sleep at home laying flat and sudden shortness of breathe the moment he falls asleep -His poor renal function likely caused CHF, resulting in fluid overload as evidenced by BNP levels. -Was offered dialysis, but patient refused. -Patient is a good candidate for kidney transplant considering his relatively young age. -Currently, BUN: 43, Cr:3.5, eGFR: 19, Hgb: 9.2 -On 04/10, patient received 1 units of irradiated pRBC during hemodialysis session. -Hemodialysis sessions: 04/09, 04/10, 04/11 ?Plan: - Patient will receive his third hemodialysis today. Currently waiting for outpatient hemodialysis chair. Once set, safe to discharge. - Nephrology will continue to follow - Avoid nephrotoxic and renally dose medications, strict ins and outs #Acute hypoxemic respiratory failure #Acute CHF exacerbation #2/2 volume overload from CKD stage 5 #Hx of HFrE, EF 35% (01/31/2019) - Presenting with several days of lower extremity swelling, PND, and orthopnea. -Symptoms suggestive of acute CHF - EKG (04/09/2025): sinus rhythm with no acute ST?T changes - CXR (04/09/2025): Mild to moderate CHF, Mild to moderate enlargement cardiac contour. Prominent vascular congestion with perihilar basilar edema - Past Echo (01/31/2019): Normal left ventricular size , Approximate ejection fraction is 35%. , Trace to mild mitral and trace tricuspid regurgitation noted. Plan: -Hemodialysis because the main etiology of his condition is untreated CKD -TSH and Lipid panel -Strict ins and out -K>4 and Mg >2 replete with caution given worsening kidney functio -Daily weights #Primary Hypertension #Insulin-dependent type 2 diabetes #Hyperlipidemia -Management per Primary Hospitalist team Thank you for allowing us to participate in the care of your patient. Assessment and plan discussed with my attending physician Dr. Rubi Jones (PGY-1)- Internal medicine resident Attending Provider Attestation/Addendum Patient seen and examined with resident physician Dr. Jones. Note reviewed, agree with findings and recommendations. Well-known to me from my CKD clinic with advanced CKD Secondary to diabetic nephropathy. He has been refusing dialysis for the last 2 years. Came with a 3-day history of orthopnea, shortness of breath and not feeling well. Noted to have a GFR less than 10. Potassium elevated. Anemic. Agreed for dialysis. Renal replacement therapy options given-currently he chose hemodialysis. Dialysis catheter was placed by IR. Patient currently seen on his third dialysis session. Tolerating without any problems. Hemodialysis for 3 hours, blood flow 200, dialysate flow 400, 2K, ultrafiltration 1 L, Epogen 49963, no heparin ordered. 1 unit irradiated PRBC was transfused yesterday. Labs reviewed. Plan of care discussed with the dialysis nurse. Please see dialysis flowsheet for further details. Hep panel negative, PPD negative. Outpatient dialysis arranged at [facility]. Renal kelly stable for discharge postdialysis. Plan of care discussed with primary team.
[2025-04-11] MEDS: EPOETIN ALFA-EPBX INJ 10,000 UNIT/ML VIAL (NON-ESRD) 10000 UNIT SC (11:19)
[2025-04-11] MEDS: HEPARIN SOD INJ 1000 UNIT/ML VIAL 10 ML 4100 UNIT INDWELLCAT (11:32)
[2025-04-11] MEDS: ATORVASTATIN CALCIUM 20 MG TABLET 80 MG PO (12:40)
[2025-04-11] MEDS: INSULIN LISPRO (AdmeLOG) 1 UNIT/0.01 ML UNIT 5 UNIT SC ×2 (12:40→17:42)
[2025-04-11] MEDS: HEPARIN SOD INJ 5000 UNIT/ML VIAL SC (12:41)
--- NOTE | 2025-04-11 14:24 | PC.SS ---
Patient is alert/oriented. Patient is Bulgarian speaking only. Wood Pile Driver Operator present. Patient was able to verify demographics. Patient states he resides with his brother, Tin, and other roommates. Patient and brother work in the [employer]. Patient is independent with ADL's. No DME. Patient was admitted for acute hypoxic resp failure. Patient states this is all new for him with his health. Patient will be new on hemodialysis with Dr. Venegas. Patient states he drives but for the first day his family can drive him. will provide community resource list for transportation assistance if needed. Patient will return home. PCP: [facility] and last appt was last month. Pharmacy: [facility]. Patient o/p dialysis schedule: //Sat. @ 10.am. and starts on . Alt medical decision maker: Tin Werner, brother,
--- NOTE | 2025-04-11 15:05 | ESDS_ITS ---
<Statement entered by Karan Kirk MD - 04/22/25 09:07> I reviewed above note and agree with findings and plans. I have also personally examined the patient with medicine team and went over assessment and plan with medical team including r d intern and resident physician. <Statement entered by Alexx Deutsch MD - 04/11/25 15:25> Note reviewed and agree with care plan as documented. Please refer to the note below for further details. Plan discussed with attending physician Dr. Reagan Deutsch MD PGY-2 Internal Medicine Planned Discharge Date 04/11/25 DS: Providers Provider Date of admission: 04/09/25 03:01 Primary care physician: Narciso Morrow MD Admitting Provider: Trinidad Ballesteros MD Attending Provider on Admission: Trinidad Ballesteros MD Consults: 04/09/25 02:23 Consult to Nephrology Stat Comment: renal failure Consulting Provider: Jesica Venegas 04/09/25 08:16 Referral Discharge Planning Routine Comment: Outpatient dialysis unit Attending Provider on DC: Karan Kirk MD Discharging Provider: Frannie Thompson DO DS: Diagnosis Problem List Completed Was Problem List Reviewed/Reconciled?: Yes Hospital Course Hospital Course Hospital course: Hospital course: 59y/o M with PMH of diabetes, HTN, high cholesterol, CKD presented to the hospital on 04/09/2025 due to worsening shortness of breathe at night. Patient had been having bilateral swelling in his feet and recently was unable to go to sleep due to sudden onset of shortness of breath that woke him up at nights. At presentation patient was noted to be hypertensive 176/76 and saturating 91% on room air, his respiratory status improved on 2 L via nasal cannula. Patient follows Dr. Shayy gama who had recommended him to start hemodialysis sessions as patient had end-stage renal disease with eGFR less than 15. Patient received 3 dialysis sessions inpatient starting on 04/09/2025 and daily thereafter for total of 3 days. 1 L over 2 hours on day 1, another liter over 2-1/2-hour on day 2, and 1 L over 3-1/2-hour full session dialysis on day 3 was removed. As patient has been established with outpatient dialysis, he should follow-up on TB results. HIV and hepatitis panel were negative. Patient's home Xarelto was discontinued because patient is ESRD and started the patient on Eliquis instead. patient tolerated the sessions well and shortness of breath improved to the point that patient was weaned to room air. A dialysis chair was established as outpatient. At the point of discharge, patient is medically stable and safe to return to previous state of living. Admission diagnosis: #Acute hypoxic respiratory failure secondary to #Fluid overload in setting of #HFrEF (EF 35%) #SAVI on CKD stage V #Severe anemia #Primary hypertension #Insulin-dependent type 2 diabetes #Hyperlipidemia Discharge instructions: - Follow-up with your PCP within 1 to 2 weeks of discharge - Follow-up with Dr. Venegas your bessemer bottom maker within 1 week - Your new dialysis schedule is 3 times weekly, Tuesdays, , Saturdays -Take your medications as listed in the prescriptions/MedRec section below -As patient has been established with outpatient dialysis, he should follow-up on TB results. HIV and hepatitis panel were negative. -If symptoms recur or worsen, go to ED This case was discussed with my attending physician, Dr. Kirk, and senior resident, Dr La Nena Balderrama. Frannie Thompson, DO PGY I Status at Discharge Cognitive/behavioral status at discharge: Stable Overall status at discharge: patient is back to baseline Time Spent with Patient Time attestation: Total time spent providing and/or coordinating discharge services: More than 50% of patient's hospital stay Time spent: Greater than 30 minutes Exam Vital Signs Temp Pulse Resp BP Pulse Ox O2 Del Method O2 Flow Rate 97 F 70 16 161/86 H 95 Room Air 1 04/11/25 12:00 04/11/25 12:40 04/11/25 12:00 04/11/25 12:40 04/11/25 12:00 04/11/25 12:00 04/11/25 08:00 Narrative Exam General: Chronically ill-appearing man. Awake and in no acute distress. Neurologic: GCS 15. Alert and oriented x3, no gross neurological deficit, and patient able to move all 4 extremities. HEENT: Normocephalic, atraumatic, mucous membranes moist. Pupils reactive to light. Heart: Regular rate and rhythm, normal S1 and S2, no murmurs. Lungs: Clear to auscultation bilaterally no wheezing crackles or rhonchi appreciated Abdomen: Soft, nondistended, nontender, positive bowel sounds. No guarding or rebound tenderness. Extremities: Trace bilateral edema. 2+ radial and dorsalis pedis pulses bilaterally. Skin: Warm. Dry. No rash or ecchymoses. Discharge Plan Plan Patient Disposition: HOME (Self Care) Care Plan Goals: - Follow-up with your PCP within 1 to 2 weeks of discharge - Follow-up with Dr. Venegas your bessemer bottom maker within 1 week - Your new dialysis schedule is 3 times weekly, Tuesdays, , Saturdays -Take your medications as listed in the prescriptions/MedRec section below -If symptoms recur or worsen, go to ED Prescriptions/Referrals Prescriptions/Med Rec: New Eliquis 2.5 mg tablet 2.5 mg PO BID 30 Days Qty: 60 0RF Continued tamsulosin 0.4 mg capsule 0.4 mg PO BID Patient Comments: TAKE 1 CAPSULE BY MOUTH TWICE DAILY aspirin 81 mg tablet 81 mg PO QDAY valsartan 160 mg tablet 160 mg PO QDAY hydralazine 50 mg tablet 50 mg PO BID Rx Instructions: hydralazine HCL 50 mg atorvastatin 80 mg PO QDAY sodium bicarbonate 325 mg tablet 325 mg PO BID Patient Comments: TAKE 1 TABLET BY MOUTH TWICE DAILY Januvia 25 mg tablet 25 mg PO QDAY calcitriol 0.25 mcg capsule 0.25 mcg PO QDAY Patient Comments: TAKE 1 CAPSULE BY MOUTH ONCE DAILY metoprolol succinate [Toprol XL] 50 mg tablet extended release 24 hr 50 mg PO QDAY Discontinued Xarelto 15 mg tablet 15 mg PO QDAY Rx Instructions: must administer with evening meal Jardiance 10 mg tablet 10 mg PO QDAY Referrals: Narciso Morrow MD [Primary Care Provider, Family Practice] Patient/Caregiver Discharge Instructions Other Discharge Activity Instructions:: Out patient dialysis schedule: //Sat at 10a.m. Start date on 04-16-25 at 10a.m., [facility] dialysis, #[phone] Print Language: Slovak Stand Alone Forms: [employer] Award Info., Patient Portal Info Letter Quality Discharge Quality Measures VTE prophylaxis
== END 2025-04-11 20:20 | disposition home or self-care (01) | DRG 469 ==
LOC: SERX 03:27 → SERHOLD 03:32 → S3SX 07:43
PROVIDERS: Internal Medicine; Radiology Diagnostic Radiology; Student in an Organized Health Care Education/Training Program; Admitting Provider Student in an Organized Health Care Education/Training Program; Emergency Provider Emergency Medicine; PCP Family Medicine; Visit Provider Internal Medicine
DX: N17.9 Acute kidney failure, unspecified (principal); D64.9 Anemia, unspecified; E11.22 Type 2 diabetes mellitus with diabetic chronic kidney disease; E78.00 Pure hypercholesterolemia, unspecified; E87.5 Hyperkalemia; I13.2 Hypertensive heart and chronic kidney disease with heart failure and with stage 5 chronic kidney disease, or end stage renal disease; I25.10 Atherosclerotic heart disease of native coronary artery without angina pectoris; I50.20 Unspecified systolic (congestive) heart failure; J96.01 Acute respiratory failure with hypoxia; N18.6 End stage renal disease; N40.2 Nodular prostate without lower urinary tract symptoms; Z76.82 Awaiting organ transplant status; Z79.4 Long term (current) use of insulin; Z79.899 Other long term (current) drug therapy; Z90.49 Acquired absence of other specified parts of digestive tract; Z91.158 Patient's noncompliance with renal dialysis for other reason; Z99.2 Dependence on renal dialysis
CPT/HCPCS: 36415; 36600; 71045; 76937; 77001; 80053; 80061; 80074; 81001; 82248; 82803; 83036; 83735; 83880; 84100; 84443; 84484; 85025; 85379; 85610; 85730; 86480; 86580; 86703; 86850; 86900; 86901; 86923; 87400; 87811; 93005; 94640; 96372; 96374; 99152; 99284; A4649; A9270; C1750; C1894; J1642; J1643; J1644; J1815; J2919; J3010; J3490; J7050; P9040; Q5105; Q5106

== ENCOUNTER 2025-04-26 20:17 | Inpatient (IN) | payer MEDICAID, SELFPAY ==
[2025-04-26 20:19] VITALS: BMI 29.5
[2025-04-26 20:59] VITALS: BP 120/62; PULSE 105; RESP 18; TEMP 39.4; O2SAT 95
--- NOTE | 2025-04-26 21:18 | XR_ITS ---
Examination: AP chest single view Technique: AP portable upright chest single view Date and time: April 26, 2025, 2137 hrs., Comparison April 09, 2025 Indications: Sepsis chest pain shortness of breath today. Findings: Early pneumonia at the lung bases Mild enlargement cardiac contour with prominent vascular congestion Right internal jugular dialysis catheter satisfactory position Impression: Early pneumonia at the lung bases Minimal heart failure
--- NOTE | 2025-04-26 21:20 | PD.EDRME ---
Rapid Medical Screening Exam ON LICENSE OF [facility] Arrival date/time: 04/26/25 20:17 59M with history of DM, HTN, and recent diagnosis of ESRD presents to ED with dizziness, N/V, and fevers/chills. Patient denies URI symptoms. Chief Complaint: General Adult/Misc Complain Vital signs: Vital Signs Temperature 103.0 F H 04/26/25 20:59 Pulse Rate 105 H 04/26/25 20:59 Respiratory Rate 18 04/26/25 20:59 Blood Pressure 120/62 04/26/25 20:59 Pulse Oximetry (%) 95 04/26/25 20:59 Oxygen Delivery Method Room Air 04/26/25 20:59
[2025-04-26 21:49] LABS: Lactate (Lactic Acid) 2.0 mMol/L (0.4-2.0)
[2025-04-26 21:54] LABS: Basophils # (Auto) 0.1 Thou/mm3 (0.0-0.2); Basophils % (Auto) 0 % (0-2.5); Eosinophils # (Auto) 0.0 Thou/mm3 (0.0-0.5); Eosinophils % (Auto) 0 % (0-10); Hematocrit 27.1 % (41.0-53.0); Hemoglobin 8.9 g/dL (13.5-16.0); Immature Granulocytes Auto 0.29 Thou/mm3 (0.00-0.00); Lymphocytes # (Auto) 0.2 Thou/mm3 (1.0-4.8); Lymphocytes % (Auto) 1 % (10-50); Mean Corpuscular HGB Conc 32.8 g/dl (31.0-37.0); Mean Corpuscular Hemoglobin 29.9 pg (25.0-35.0); Mean Corpuscular Volume 91 fL (80-100); Monocytes # (Auto) 0.4 Thou/mm3 (0.0-0.8); Monocytes % (Auto) 3 % (0-12); Neutrophils # (Auto) 14.3 Thou/mm3 (1.8-7.7); Neutrophils % (Auto) 94 % (37-80); Nucleated Red Blood Cell # 0.02 Thou/mm3 (0.00-0.00); Nucleated Red Blood Cell % 0 /100 WBC (0); Platelet Count 165 Thou/mm3 (140-440); RDW Standard Deviation 43.8 fL (35.1-43.9); Red Blood Count 2.98 Miln/mm3 (4.50-5.90); White Blood Count 15.3 Thou/mm3 (3.8-10.6)
[2025-04-26 21:59] VITALS: TEMP 39.4
[2025-04-26] MEDS: ACETAMINOPHEN 500 MG TABLET 1000 MG PO (21:59)
[2025-04-26] MEDS: SODIUM CHLORIDE 0.9% 1000 ML 1,000 ML 999 ML IV (22:08)
[2025-04-26] MEDS: ONDANSETRON INJ 2 MG/ML INJ 2 ML 4 MG IV (22:09)
[2025-04-26] MEDS: cefTRIAXone/D5w 1gm IV premix 1 GM/50 ML BAG IV (22:09)
--- NOTE | 2025-04-26 22:13 | PD.EDADULT ---
ED General RME/HPI General Chief complaint: General Adult/Misc Complain Stated complaint: NAUSEA VOMITING DIZZINESS CHILLS Arrival date/time: 04/26/25 20:17 RME / HPI RME / HPI narrative: 04/26/25 20:17 59M with history of DM, HTN, and recent diagnosis of ESRD presents to ED with dizziness, N/V, and fevers/chills. Patient denies URI symptoms. Dr. Hernandez?s Main ED Evaluation: 59yo male with history of DM, BPH, ?aFib, recently began on dialysis noted by daughter today to have rigors prompting her to present to ED for evaluation. Denies URI/cough, abdominal pain, diarrhea. Patient is not anuric and denies urgency, dysuria, or frequency. No obvious infectious exposures. No reported myalgias. Related Data Home Medications ?Medication ?Instructions ?Recorded ?Confirmed aspirin 81 mg tablet 81 mg PO QDAY 04/10/25 04/26/25 atorvastatin 80 mg PO QDAY 04/10/25 04/26/25 calcitriol 0.25 mcg capsule 0.25 mcg PO QDAY 04/10/25 04/26/25 hydralazine 50 mg tablet 50 mg PO BID 04/10/25 04/26/25 metoprolol succinate 50 mg 50 mg PO QDAY 04/10/25 04/26/25 tablet,extended release 24 hr (Toprol XL) sitagliptin phosphate 25 mg tablet 25 mg PO QDAY 04/10/25 04/26/25 (Januvia) sodium bicarbonate 325 mg tablet 325 mg PO BID 04/10/25 04/26/25 tamsulosin 0.4 mg capsule 0.4 mg PO BID 04/10/25 04/26/25 valsartan 160 mg tablet 160 mg PO QDAY 04/10/25 04/26/25 pantoprazole 20 mg tablet,delayed 20 mg PO .QD 04/26/25 04/26/25 release Previous Rx's ?Medication ?Instructions ?Recorded apixaban 2.5 mg tablet (Eliquis) 2.5 mg PO BID 30 days #60 tabs 04/11/25 Allergies Allergy/AdvReac Type Severity Reaction Status Date / Time No Known Allergies Allergy Verified 04/26/25 20:27 Review of Systems Review of Systems Systems Reviewed: All systems reviewed, normal except as documented ED Exam Narrative Physical exam: GENERAL APPEARANCE: alert and oriented x 4, well-developed, well-nourished, nontoxic, no acute distress VITALS: All vitals were reviewed and the pulse ox is 95% on room air, which is normal according to my interpretation. Notably febrile. Normaltensive. HEENT: Normocephalic, atraumatic; pupils equal, round, reactive to light; EOMI; mucous membranes pink, moist; oropharynx clear NECK: Supple LUNGS: CTABL; no wheezes, no rales, no rhonchi CHEST: Right subclavian port in place; puncture site is clear without induration, erythema, or drainage HEART: Mildly tachycardic, regular rhythm; normal S1, S2; no murmurs ABDOMEN: non distended; soft, no tenderness, no guarding, no rebound EXTREMITIES: atraumatic; no edema NEUROLOGIC: awake; alert and oriented x4; cranial nerves II-XII grossly intact; no focal sensory or motor deficits PSYCHIATRIC: appropriate mood and affect SKIN: warm, dry, normal color; no rashes Course Course Course Narrative: 2119: Sepsis alert initiated. Orders made at this time are congruent with ED Adult Sepsis Order List. Re-evaluation is to be completed. 2207: NS IVF started. 0006: Sepsis reassessment performed consisting of lab review, vitals, physical exam including auscultation of heart, lungs, and visual evaluation of capillary refills, mucosal membranes and extremities. Quality Measures Possible source: pulmonary Blood cultures ordered: yes Antibiotic ordered: Yes Pertinent labs: 04/26/25 21:34 Lactic Acid 2.0 mMol/L (0.4-2.0) Procalcitonin 32.22 H ng/ml (0.0-0.49) sepsis Orders Category Date Time Status Bedside COVID-19 Antigen Test NOW Care 04/26/25 20:51 Active Insert IV NOW Care 04/26/25 21:18 Active XR chest 1V portable Stat Exams 04/26/25 21:18 Completed Blood Culture (Lab) Stat Lab 04/26/25 21:37 Received CBC Stat Lab 04/26/25 21:34 Completed Comprehensive Metabolic Panel Stat Lab 04/26/25 21:34 Completed Drug Screen,Urine Stat Lab 04/27/25 01:57 Completed Influenza A & B Rapid Panel Stat Lab 04/27/25 01:30 Completed Lactate (Lactic Acid) Stat Lab 04/26/25 21:34 Completed Magnesium Stat Lab 04/26/25 21:34 Completed Procalcitonin Stat Lab 04/26/25 21:34 Completed Urinalysis, C/S if Indicated Stat Lab 04/27/25 01:57 Completed Acetaminophen Tab [Tylenol ES Tab] Med 04/26/25 21:19 Discontinued 1,000 mg PO X1 ONE Ondansetron Inj [Zofran Inj] Med 04/26/25 21:19 Discontinued 4 mg IV X1 ONE Sodium Chloride 0.9% 1000 ml [Ns] 1,000 ml Med 04/26/25 21:18 Discontinued IV 999 mls/hr cefTRIAXone/D5w 1gm IV premix [Rocephin/D5w 1gm IV Med 04/26/25 21:19 Discontinued premix] 1 gm in 50 ml IV X1 Vital Signs Vital signs: Vital Signs Temperature 103.0 F H 04/26/25 20:59 Pulse Rate 105 H 04/26/25 20:59 Respiratory Rate 18 04/26/25 20:59 Blood Pressure 120/62 04/26/25 20:59 Pulse Oximetry (%) 95 04/26/25 20:59 Oxygen Delivery Method Room Air 04/26/25 20:59 Critical Care Time Critical Care Time Critical Care Time: Yes Total Critical Care Time (min.): 35 Attestation: The high probability of sudden, clinically significant deterioration in the patient?s condition required the highest level of my preparedness to intervene urgently. The services I provided to this patient were to treat and/or prevent clinically significant deterioration. Services included the following: chart data review, reviewing nursing notes and/or old charts, documentation time, creative consultant collaboration regarding findings and treatment options, medication orders and management, direct patient care, vital sign assessments and ordering, interpreting and reviewing diagnostic studies and lab tests. Aggregate critical care time includes only time during which I was engaged in work directly related to the patient?s care, as described above, whether at bedside or elsewhere in the Emergency Department. It did not include time spent performing other reported procedures or the services of residents, students, nurses or physician assistants. Discharge Plan Plan Patient Disposition: Admit Acute Care w/in Hospital Prescriptions/Referrals Prescriptions/Med Rec: No Action tamsulosin 0.4 mg capsule 0.4 mg PO BID Patient Comments: TAKE 1 CAPSULE BY MOUTH TWICE DAILY aspirin 81 mg tablet 81 mg PO QDAY valsartan 160 mg tablet 160 mg PO QDAY hydralazine 50 mg tablet 50 mg PO BID Rx Instructions: hydralazine HCL 50 mg atorvastatin 80 mg PO QDAY sodium bicarbonate 325 mg tablet 325 mg PO BID Patient Comments: TAKE 1 TABLET BY MOUTH TWICE DAILY Januvia 25 mg tablet 25 mg PO QDAY calcitriol 0.25 mcg capsule 0.25 mcg PO QDAY Patient Comments: TAKE 1 CAPSULE BY MOUTH ONCE DAILY metoprolol succinate [Toprol XL] 50 mg tablet extended release 24 hr 50 mg PO QDAY Eliquis 2.5 mg tablet 2.5 mg PO BID 30 Days Qty: 60 0RF pantoprazole 20 mg tablet,delayed release (DR/EC) 20 mg PO .QD Patient Comments: TAKE 1 TABLET BY MOUTH ONCE DAILY 1/2 TO 1 HOUR BEFORE MORNING MEAL Referrals: Narciso Morrow MD [Primary Care Provider, Family Practice] - In 1 week Problem List Clinical Impression: Acute febrile illness, Sepsis, Pneumonia Patient/Caregiver Discharge Instructions Print Language: Guinean Stand Alone Forms: [employer] Award Info., Patient Portal Info Letter MDM Narrative MDM hospital course (for use when minimal MDM required): Scribe Attestation: 04/26/25 - Marline Bess am scribing for and in the presence of Dr. Hernandez. 59yo male with history of DM, BPH, ?aFib, recently began on dialysis noted by daughter today to have rigors prompting her to present to ED for evaluation. Denies URI/cough, abdominal pain, diarrhea. Please see PE findings. Lab markers demonstrate elevated WBC count 15.3, stable Hgb 8.9, normal platelet count, left shift without bandemia. Chemistries notable for BUN and Creatinine 45/4.7 with GFR 14 (baseline). Procalcitonin elevated 22. CXR demonstrates evidence of bibasilar pneumonia. Patient administered dual antibiotics and antipyretics with reduction in temperature. Patient remained hemodynamically stable throughout ED course and mildly hypoxic on room air at 91%. Placed on oxygen via nasal cannula. Hospitalist consulted and agrees to admit. Dx: acute febrile illness, pneumonia, sepsis Clinical Information Provided by: patient Medical Records reviewed [facility] (Per chart review, patient was admitted here on 04/09/25 for acute respiratory failure with hypoxia.) Meds/Rx considered, not ordered None Labs/Rad/Tests considered, not ordered None Chronic Illness/Social Conditions Explain: Hx DM, CHF, HTN, HLD, ESRD Labs Labs: interpreted by me Imaging Imaging interpretation: interpreted by me Imaging Interpretation(s): [facility] Report Signed Patient: WENDY MEDINA. Record#: [id number] Birthdate: 1965 Age/Sex: 59 / M Location: [facility] Attending Dr: Ordering Physician: Elliot Watkins PA-C Date of Service: 04/26/25 Procedure(s): XR chest 1V portable Accession Number(s): [id number] cc: Narciso Morrow MD; Dandy Lucas MD; Elliot Watkins PA-C~ Examination: AP chest single view Technique: AP portable upright chest single view Date and time: April 26, 2025, 2137 hrs., Comparison April 09, 2025 Indications: Sepsis chest pain shortness of breath today. Findings: Early pneumonia at the lung bases Mild enlargement cardiac contour with prominent vascular congestion Right internal jugular dialysis catheter satisfactory position Impression: Early pneumonia at the lung bases Minimal heart failure Dictated By: Dandy Lucas MD Signed By: <Electronically signed by Dandy Lucas MD in OV> 04/26/25 9711 Medication Administration(s) Medication Administration History Discontinued Medications Acetaminophen (Acetaminophen 500 Mg Tablet) 1,000 mg PO X1 ONE Stop: 04/26/25 21:20 Last Admin: 04/26/25 21:59 Dose: 1,000 mg Documented By: ALIYAH Sodium Chloride (Ns) 1,000 mls @ 999 mls/hr IV .Q1H1M ONE Stop: 04/26/25 22:18 Last Infusion: 04/26/25 23:36 Dose: Infused Documented By: Admin: 04/26/25 22:08 Dose: 999 mls/hr Documented By: ALIYAH Ceftriaxone Sodium/Dextrose (Rocephin/D5w 1gm Iv Premix) 1 gm in 50 mls @ 100 mls/hr IV X1 ONE Stop: 04/26/25 21:48 Last Infusion: 04/26/25 22:51 Dose: Infused Documented By: Admin: 04/26/25 22:09 Dose: 100 mls/hr Documented By: ALIYAH Ondansetron HCl (Ondansetron Inj 2 Mg/Ml Inj 2 Ml) 4 mg IV X1 ONE; Protocol Stop: 04/26/25 21:20 Last Admin: 04/26/25 22:09 Dose: 4 mg Documented By: ALIYAH see above Consultations/Discussions re: Management Consult #1: Date/time: 04/27/25 2:58 am Physician, specialty, service, details: Discussed case with Hospitalist service regarding admission. Discussed patients ED course, exam findings, labs, and radiology results. The Hospitalist agrees to accept the patient for admission. Diagnosis Differential Diagnosis ED Complaint MDM: UTI, pneumonia, dehydration, electrolyte abnormality, sepsis
[2025-04-26 22:20] LABS: Alanine Aminotransferase 29 U/L (10-49); Albumin, Serum 4.0 gm/dL (3.5-5.0); Albumin/Globulin Ratio 1.7 (1.2-2.2); Alkaline Phosphatase 52 U/L (46-116); Anion Gap 11 (7-16); Aspartate Amino Transferase 23 U/L (0-34); BUN/Creatinine Ratio 10 Ratio (12-20); Bilirubin,Total 0.7 mg/dL (0.3-1.2); Blood Urea Nitrogen 45 mg/dL (9-23); Calcium 8.6 mg/dL (8.3-10.6); Calcium (Corrected) 8.6 mg/dL (8.5-10.1); Carbon Dioxide 23.3 mMol/L (20.0-31.0); Chloride 104 mMol/L (98-107); Creatinine (Component) 4.7 mg/dL (0.6-1.3); Estimated Creatinine Clearance 18.8 mL/min (>60); Globulin 2.4 gm/dL (2.3-3.5); Glucose 165 mg/dL (74-106); Magnesium 1.6 mg/dL (1.6-2.6); Osmolality,Calculated 291 (275-295); Potassium 3.7 mMol/L (3.4-5.1); Procalcitonin 32.22 ng/ml (0.0-0.49); Sodium 138 mMol/L (136-145); Total Protein 6.4 gm/dL (5.7-8.2); eGFR 14 See Note
[2025-04-26 22:59] VITALS: TEMP 37.9
[2025-04-26 23:23] VITALS: BP 112/52; PULSE 99; RESP 17; TEMP 37.9; O2SAT 90
[2025-04-27] VITALS (33 sets, daily range): BP systolic 103–154; BP diastolic 55–87; PULSE 81–103; RESP 15–100; TEMP 36.3–39.3; O2SAT 91–98; BMI 30.7
[2025-04-27 02:01] LABS: Collection Type, Urine Clean Catch; Squamous Epithelial Cell,Urine 0 /hpf (0-5)
[2025-04-27 02:11] LABS: Bacteria,Urine Rare; Bilirubin,Urine Negative (Negative); Blood,Urine Trace (Negative); Clarity,Urine Clear (Clear/Hazy); Color,Urine Yellow (Lt Yel-Yel); Culture Indicated,Urine Not Indicated; Glucose, Urine 1+ (Negative); Ketones,Urine Negative (Negative); Leukocyte Esterase,Urine Negative (Negative); Nitrite,Urine Negative (Negative); PH,Urine 6.0 (5.0-7.0); Protein,Urine 3+ (Neg - Trace); RBC,Urine 5 /hpf (0-3); Specific Gravity,Urine 1.016 (1.001-1.035); Urobilinogen,Urine Negative mg/dL (0.0-1.0); WBC,Urine 10 /hpf (0-5)
[2025-04-27 02:15] LABS: Amphetamine/Methamp Scrn,U Negative (Negative); Barbiturate Screen,Urine Negative (Negative); Benzodiazepines Screen,Urine Negative (Negative); Benzoylecgonine Screen, Ur Negative (Negative); Fentanyl Screen,Urine Negative (Negative); Opiate Screen,Urine Negative (Negative); THC Screen,Urine Negative (Negative)
[2025-04-27 02:24] LABS: Influenza A Ag Negative; Influenza B Ag Negative
--- NOTE | 2025-04-27 03:50 | PD.RESHP ---
Documentation for date of: 04/27/25 HPI History of Present Illness History of present illness: This is a 59-year-old male with PMHx of HFrEF EEF30% 2019, DVT on ELIQUIS, IDDM, HTN, HLD, anemia, CKD newly on HD TTS with Dr. Venegas, presenting to the ED with CC of rigors and fever of 103. Symptoms today at 10AM when he began experiencing rigors, chills, and fever of 103 at home. Symptoms continued throughout the day and promoted him to come to the ED. He completed his last HD on . He has a history of CKD stage IV and was recently started on HD during his last admission at [facility] earlier this month. At the time, he presented with LE edema and sob. He was dialized inpatient and was discharged with Tunnel HD cath and has been receiving HD TTS since. His CKD believed to be a complication of chronic HTN and diabetes. Currently denies LEVY, fall or trauma, visual disturbances, chest pain, cough, sob, palpitation, abdominal pain, N/V/D/C, dysuria, hematuria, urinary urgency or frequency. No sick exposure or recent travel. Past Medical History: As above. Past Surgical History: Cardiac angiogram in the past. Medications: ELIQUIS 2.5 mg BID, TAMSULOSIN, ASA 81 MG, VALSARTAN 160 MG, HYDRALAZINE 50 MG BID, ATORVASTATIN 80 MG, JANUVIA 25 MG, VITAMIN D, METOPROLOL SUCCINATE 50 MG, SODIUM BICARB 325 MG BID. Allergies: NKA Family History: Noncontributory Social History: Denies history of smoking, denies current alcohol use, denies recreational drug use. ED Course: T103, HR 105, BP 112/52, sating low 90s on room air, improved with NC. Negative COVID and INFLUENZA A/B. WBC 15.3 with acute left shift, Hgb 8.9, PLT 165. Chem panel remarkable for PROCALC 32.22, glucose 165. Renal function shows CR 4.7, BUN 45, and GFR 14 Normal LFTs, TBili, and electrolytes. UA showed 10 WBC and 5 RBC, no LE or nitrites. UTOX is negative. EKG showed sinus rhythm without acute ST changes. CXR showed early bibasilar PNA. Exam showed no signs of volume overload, clear lung sound bilaterally, non-tender/non-distended abdomen, no signs of infection of HD cath. Reason for admission: Admitted for fever and AHRF in setting of PNA, unable to r/o CRBSI and will need admission for IV abx and blood cultures. Review of Systems Review of Systems Systems Reviewed: All systems reviewed, normal except as documented Past Medical History Past Medical History NEUROLOGIC: Negative Neurological Disorders CARDIAC: Positive Hypertension; Negative Cardiac Disorders or Congestive Heart Failure RESPIRATORY: Negative Chronic Obstructive Pulmonary Disease (COPD) or Asthma GASTROINTESTINAL: Negative Gastrointestinal Disorders GENITOURINARY: Positive Renal Disease MUSCULOSKELETAL: Negative Musculoskeletal Disorders ENT: Positive Cataracts (right) ENDOCRINE: Positive Diabetes Mellitus Type 2; Negative Diabetes Mellitus Type 1 HEMATOLOGIC: Negative Sickle Cell Disease OTHER HISTORY: Negative Cancer Surgical History SURGICAL: Positive Ear Surgery; Negative Abdominal Surgery Exam Vital Signs Temp Pulse Resp BP Pulse Ox O2 Del Method 97.9 F 92 15 103/58 L 91 L Room Air 04/27/25 02:40 04/27/25 02:40 04/27/25 02:40 04/27/25 02:40 04/27/25 02:40 04/27/25 02:40 Narrative Exam GENERAL Normal appearing male, NAD, on NC satting well. HEENT NCAT.?WILBER. Oral mucosa is moist. Patent Nares NECK Supple, nontender, no JVD. CHEST Tachycardic, regular rhythm, no m/g/r CTAB, no w/r/r, symmetrical expansion. ABDOMEN Soft, flat, nontender. No guarding/rebound tenderness/masses. Bowel sounds presents EXTREMITIES No edema/cyanosis.? SKIN Warm and dry, no jaundice/rashes. Tunnel cath noted, without tenderness or erythemia or discharge. NEUROMUSCULAR No lumbar or midline, no CVA, no paraspinal muscle spasm or tenderness. Moves all 4 extremities well, with full ROM and good CSM. CERDA x4, CN II-XII grossly intact. No focal neurologic deficits. PSYCHIATRY Normal mood and affect, cooperative, no SI or HI or hallucinations. Results: Labs 04/27/25 04:50 04/27/25 04:50 Labs: Short CBC 04/26/25 Range/Units 21:34 WBC 15.3 H (3.8-10.6) Thou/mm3 Hgb 8.9 L (13.5-16.0) g/dL Hct 27.1 L (41.0-53.0) % Plt Count 165 (140-440) Thou/mm3 BMP 04/26/25 21:34 Sodium 138 Potassium 3.7 Chloride 104 Carbon Dioxide 23.3 BUN 45 H Creatinine 4.7 H* Glucose 165 H Calcium 8.6 Liver Function 04/26/25 Range/Units 21:34 Total Bilirubin 0.7 (0.3-1.2) mg/dL AST 23 (0-34) U/L ALT 29 (10-49) U/L Alkaline Phosphatase 52 (46-116) U/L Albumin 4.0 (3.5-5.0) gm/dL Urine 04/27/25 Range/Units 01:57 Urine Color Yellow (Lt Yel-Yel) Urine Clarity Clear (Clear/Hazy) Urine pH 6.0 (5.0-7.0) Ur Specific [place] 1.016 (1.001-1.035) Urine Protein 3+ A (Neg - Trace) Urine Glucose (UA) 1+ A (Negative) Quality Measures Quality Measures sepsis Current suspected stage: ruled out Possible source: pulmonary Blood cultures ordered: yes Antibiotic ordered: Yes Medications Home Medications and Allergies Home Medications ?Medication ?Instructions ?Recorded ?Confirmed ?Type aspirin 81 mg tablet 81 mg PO QDAY 04/10/25 04/26/25 History atorvastatin 80 mg PO QDAY 04/10/25 04/26/25 History calcitriol 0.25 mcg capsule 0.25 mcg PO QDAY 04/10/25 04/26/25 History hydralazine 50 mg tablet 50 mg PO BID 04/10/25 04/26/25 History metoprolol succinate 50 mg 50 mg PO QDAY 04/10/25 04/26/25 History tablet,extended release 24 hr (Toprol XL) sitagliptin phosphate 25 mg tablet 25 mg PO QDAY 04/10/25 04/26/25 History (Januvia) sodium bicarbonate 325 mg tablet 325 mg PO BID 04/10/25 04/26/25 History tamsulosin 0.4 mg capsule 0.4 mg PO BID 04/10/25 04/26/25 History valsartan 160 mg tablet 160 mg PO QDAY 04/10/25 04/26/25 History pantoprazole 20 mg tablet,delayed 20 mg PO .QD 09/26/25 09/26/25 History release Allergies Allergy/AdvReac Type Severity Reaction Status Date / Time No Known Allergies Allergy Verified 04/26/25 20:27 Visit Medications Discontinued Medications Acetaminophen (Acetaminophen 500 Mg Tablet) 1,000 mg PO X1 ONE Stop: 04/26/25 21:20 Last Admin: 04/26/25 21:59 Dose: 1,000 mg Sodium Chloride (Ns) 1,000 mls @ 999 mls/hr IV .Q1H1M ONE Stop: 04/26/25 22:18 Last Infusion: 04/26/25 23:36 Dose: Infused Ceftriaxone Sodium/Dextrose (Rocephin/D5w 1gm Iv Premix) 1 gm in 50 mls @ 100 mls/hr IV X1 ONE Stop: 04/26/25 21:48 Last Infusion: 04/26/25 22:51 Dose: Infused Ondansetron HCl (Ondansetron Inj 2 Mg/Ml Inj 2 Ml) 4 mg IV X1 ONE; Protocol Stop: 04/26/25 21:20 Last Admin: 04/26/25 22:09 Dose: 4 mg Assessment & Plan Plan This is a 59-year-old male with PMHx of HFrEF EEF30% 2019, DVT on ELIQUIS, IDDM, HTN, HLD, anemia, CKD newly on HD TTS with Dr. Venegas, presenting to the ED with CC of rigors and fever of 103. Admitted for AHRF in setting of PNA. AHRF in setting of PNA, likely GNR Present with fever and rigors on the morning of admission. Met 3/4 SIRS criteria with fever 103, tachycardia 105 and WBC 15.3. No signs of EOD and normal LA, unlikely septic. He was found taschypnic and desatting to low 90s on room air. CXR showed PNA and has mild coarse breath sounds on exam. Received 1.0L NS in ED. ? Continue CTX and AZITHROMYCIN ? Pending blood and sputum culture ? Continue TYLENOL for fever ? Oxygen PRN ESRD on HD TTS Newely to HD since r this month. Completed last session on thru tunneled cath which appear to be intact without signs of infection. Renal function near baseline. No signs of volume overload on exam. ? Continue inpatient HD TTS ? Continue home CALCITRIOL 0.25 mcg IDDM A1c 6.6 from earlier this month, admission glucose 165. He has a history of hypoglycemia on previous admission. ? Insulin sliding scale ? Accuchecks Anemia of chronic disease Hgb 8.9 and around baseline. No signs or symptoms of abnormal bleed. ? Transfuse if Hgb < 8.0 ? Daily labs HFrEF with EEF 30% in 2019 As present on ECHO from 2019. No signs of fluid overload, does not appear in CHF exacerbation. Not on full GDMT. ? Will follow-up with repeat ECHO ? Continue home ASA 81 mg daily ? Consider resuming home METOPROLOL 50 mg XL when BP can tolerate ? Work towards full GDMT as tolerated HTN HLD Chronic problems. Last lipid panel from earlier this month with TG 67 and LDL 57. BP currently soft 103/58, HR 92. ? Continue home ATORVASTATIN 80 mg ? Consider resuming home antihypertensives when able UE DVT, likely unprovoked History of DVT of upper extremity, likely unprovoked. Previously on XARALTO which was switched to ELIQUIS on last admission and appropriately given ESRD. ? Continue home ELIQUIS 2.5 mg BID BPH ? Consider resume home TAMSOLUSIN 0.4 mg when able Health maintenance Diet: Renal GI prophylaxis: PROTONIX DVT prophylaxis: ELIQUIS Antibiotics: CTX, AZITHROMYCIN CODE STATUS: FULL-CODE [facility]: [facility]. Case was discussed with attending physician, Dr. Ballesteros. Shraddha Uriarte, PGY II This document was transcribed using voice recognition technology. Minor inaccuracies may be present. Attending Provider Attestation/Addendum After examination of the patient and review of the clinical data I feel that this patient needs admission to the hospital for further treatment/evaluation. Plan of care discussed with patient and is in agreement. I Trinidad Ballesteros MD, attest that I was physically present for atkins portions of evaluation, and examined patient, labs and imagings and plan of care were discussed with IM residents team, and I agree with the findings and plans documented above.
--- NOTE | 2025-04-27 04:02 | EKG_ITS ---
[facility] Test Date: 2025-04-27 Pat Name: WENDY MEDINA Department: Room: - Gender: Male [employer]: : 1965 Requested By: Trinidad Edmond Order Number: [id number] Reading MD: Trinidad Edmond Measurements Intervals [place] Rate: 84 P: 53 TX: 194 QRS: 11 QRSD: 96 T: 89 QT: 369 QTc: 437 Interpretive Statements SINUS RHYTHM NONSPECIFIC ST & T-WAVE ABNORMALITY Compared to ECG 04/09/2025 14:05:39 Sinus tachycardia no longer present Incomplete right bundle-branch block no longer present Possible ischemia no longer present T-wave abnormality still present /store/S0/[id number].pdf
--- NOTE | 2025-04-27 04:17 | ECHO_ITS ---
Transthoracic Echo Report Ht (in): 69 Wt (lb): 200 Exam Location: Echo Lab Status: Inpatient Can Intake Worker: Kiki Dodd Indications: Procedure Performed: BP: 132 / 71 HR: 85 Technical Quality: Technically difficult study MEASUREMENTS (Male / Female) Normal Values 2D ECHO LV Diastolic Diameter PLAX 6.3 cm 4.2 - 5.9 / 3.9 - 5.3 cm LV Systolic Diameter PLAX 4.9 cm IVS Diastolic Thickness 0.9 cm 0.6 - 1.0 / 0.6 - 0.9 cm LVPW Diastolic Thickness 1.3 cm 0.6 - 1.0 / 0.6 - 0.9 cm LV Relative Wall Thickness 0.3 LVOT Diameter 2.1 cm Aortic Root Diameter 3.4 cm LA Systolic Diameter LX 4.6 cm 3.0 - 4.0 / 2.7 - 3.8 cm LV Ejection Fraction MOD BP 46.2 % >= 55 % LV Cardiac Index MOD BP 4881.6 cm?/min?m? LV Ejection Fraction MOD 4C 39.8 % LV Cardiac Index MOD 4C 3361.1 cm?/min?m? LV Ejection Fraction 4C AL 41.6 % LV Cardiac Index 4C AL 3748.3 cm?/min?m? LV Ejection Fraction MOD 2C 54.5 % LV Cardiac Index MOD 2C 6562.1 cm?/min?m? LV Ejection Fraction 2C AL 55.9 % LV Cardiac Index 2C AL 6940.8 cm?/min?m? LA Volume Index 41.8 cm?/m? 16 - 28 cm?/m? M-MODE Aortic Root Diameter MM 3.1 cm LA Systolic Diameter MM 4.3 cm LA Ao Ratio MM 1.4 AV Cusp Separation MM 2.1 cm DOPPLER AV Peak Velocity 149.0 cm/s AV Peak Gradient 8.9 mmHg AV Mean Gradient 4.0 mmHg AV Velocity Time Integral 32.1 cm LVOT Peak Velocity 101.0 cm/s LVOT Peak Gradient 4.1 mmHg LVOT Velocity Time Integral 23.0 cm LVOT Cardiac Index 3187.6 cm?/min?m? AV Area Cont Eq vti 2.5 cm? AV Area Cont Eq pk 2.3 cm? MV Area PHT 4.6 cm? Mitral E Point Velocity 114.0 cm/s Mitral A Point Velocity 71.8 cm/s Mitral E to A Ratio 1.6 LV E' Lateral Velocity 7.1 cm/s Mitral E to LV E' Lateral Ratio 16.1 LV E' Septal Velocity 6.5 cm/s Mitral E to LV E' Septal Ratio 17.5 TR Peak Velocity 247.0 cm/s TR Peak Gradient 24.4 mmHg PV Peak Velocity 110.0 cm/s PV Peak Gradient 4.8 mmHg FINDINGS Left Ventricle Normal left ventricular size. Mild LVH. Global left ventricular systolic function is mildly decreased. The ejection fraction is visually estimated at 40%. Right Ventricle The right ventricle is normal in size and systolic function. Left Atrium The left atrium is normal by two-dimensional, color flow and Doppler imaging with no structural abnormalities, no thrombus formation present. Right Atrium The right atrium is normal by two-dimensional imaging, color flow and Doppler imaging with no structural abnormalities, no thrombus formation present. Atrial Septum The interatrial septum appears normal with no evidence of a shunt. Aorta The aorta is normal by two-dimensional, color flow and Doppler interrogation. Mitral Valve The mitral valve is normal by two-dimensional, color flow and Doppler interrogation. There is no significant mitral valve regurgitation, stenosis or prolapse. Aortic Valve The aortic valve is trileaflet and normal by two-dimensional, color flow and Doppler interrogation. There is no significant aortic valve regurgitation. Tricuspid Valve The tricuspid valve is normal by two-dimensional, color flow and Doppler interrogation. There is trace tricuspid valve regurgitation. Pulmonic Valve The pulmonic valve is not well visualized. There is no significant pulmonic valve regurgitation. Vessels The pulmonary artery appears normal. The inferior vena cava pulmonary and hepatic veins appear normal. Pericardium The pericardium is normal by two-dimensional imaging. There is no significant pericardial effusion. CONCLUSIONS Normal LV size. Mild LVH. Global left ventricular systolic function is mildly decreased. Estimated at 40%. The RV is normal in size and systolic function. Trace TR. Myla Steinberg (Electronically Signed) Final Date: 28 April 2025 13:16
--- NOTE | 2025-04-27 04:22 | PC.RT ---
Sputum culture sent to lab.
[2025-04-27] MEDS: AZITHROMYCIN INJ 250 MG, Sterile Water 2.5 ML in SODIUM CHLORIDE 0.9% 250 ML 250 ML 252.5 MG IV (05:08)
[2025-04-27 05:12] LABS: Basophils # (Auto) 0.1 Thou/mm3 (0.0-0.2); Basophils % (Auto) 1 % (0-2.5); Eosinophils # (Auto) 0.0 Thou/mm3 (0.0-0.5); Eosinophils % (Auto) 0 % (0-10); Hematocrit 26.5 % (41.0-53.0); Immature Granulocytes Auto 0.51 Thou/mm3 (0.00-0.00); Lymphocytes # (Auto) 0.3 Thou/mm3 (1.0-4.8); Lymphocytes % (Auto) 1 % (10-50); Mean Corpuscular HGB Conc 32.1 g/dl (31.0-37.0); Mean Corpuscular Hemoglobin 29.4 pg (25.0-35.0); Mean Corpuscular Volume 92 fL (80-100); Monocytes # (Auto) 0.7 Thou/mm3 (0.0-0.8); Monocytes % (Auto) 3 % (0-12); Neutrophils # (Auto) 22.3 Thou/mm3 (1.8-7.7); Neutrophils % (Auto) 93 % (37-80); Nucleated Red Blood Cell # 0.00 Thou/mm3 (0.00-0.00); Nucleated Red Blood Cell % 0 /100 WBC (0); Platelet Count 139 Thou/mm3 (140-440); RDW Standard Deviation 46.2 fL (35.1-43.9); Red Blood Count 2.89 Miln/mm3 (4.50-5.90); White Blood Count 23.9 Thou/mm3 (3.8-10.6)
[2025-04-27 05:14] LABS: Hemoglobin 8.5 g/dL (13.5-16.0)
[2025-04-27 05:29] LABS: Albumin, Serum 3.8 gm/dL (3.5-5.0); Anion Gap 11 (7-16); BUN/Creatinine Ratio 11 Ratio (12-20); Blood Urea Nitrogen 55 mg/dL (9-23); Calcium 8.5 mg/dL (8.3-10.6); Calcium (Corrected) 8.7 mg/dL (8.5-10.1); Carbon Dioxide 23.9 mMol/L (20.0-31.0); Chloride 102 mMol/L (98-107); Creatinine (Component) 4.9 mg/dL (0.6-1.3); Estimated Creatinine Clearance 18.1 mL/min (>60); Glucose 155 mg/dL (74-106); Magnesium 1.6 mg/dL (1.6-2.6); Osmolality,Calculated 291 (275-295); Phosphorous 4.1 mg/dL (2.4-5.1); Potassium 4.6 mMol/L (3.4-5.1); Sodium 137 mMol/L (136-145); eGFR 13 See Note
--- NOTE | 2025-04-27 05:57 | PC.NURSE ---
REPORT GIVEN TO FLOOR GABRIELA JENKINS
[2025-04-27] MEDS: ACETAMINOPHEN 325 MG TABLET 650 MG PO ×3 (07:34→23:47)
[2025-04-27] MEDS: ASPIRIN EC 81 MG TABEC PO (08:05)
[2025-04-27] MEDS: APIXABAN 2.5 MG TABLET PO ×2 (08:05→20:09)
[2025-04-27] MEDS: ATORVASTATIN CALCIUM 20 MG TABLET 80 MG PO (08:05)
[2025-04-27] MEDS: SODIUM BICARBONATE 650 MG TABLET 325 MG PO ×2 (08:06→20:07)
[2025-04-27] MEDS: INSULIN LISPRO (AdmeLOG) 1 UNIT/0.01 ML UNIT SC ×2 (08:06→16:29)
[2025-04-27] MEDS: PANTOPRAZOLE 20 MG TABLET PO (08:06)
--- NOTE | 2025-04-27 08:58 | PC.NURSE ---
pt transferred to dialysis by [facility] almendarez. pt stable current oral temp at 100.0 made [facility] internship nurse aware. pt cont on cooling measures and closely monitored for temps. md ortiz rounded this am approx [id number] made aware of pts temperatures this morning.
--- NOTE | 2025-04-27 10:11 | PC.NURSE ---
PT W/ COMPLAINT OF BODY CHILLS, PT NOTED W/ HIGH TEMP PRE TX, BEDSIDE NURSE SUSAN REPORTED TYLENOL AND COOLING MEASURES INITIATED TO ADDRESS. PT TEMP CURRENTLY AT 99.3 AN IMPROVEMENT FROM PRE TX. EXT 6012 NOTIFIED W/ ORDER TO CONT. DIALYSIS /W ORDER FOR ADMINISTRATION OF ANTIBIOTICS POST TX.
--- NOTE | 2025-04-27 10:21 | PD.RESPRO ---
Documentation for date of: 04/27/25 Exam Vital Signs Temp Pulse Resp BP Pulse Ox O2 Del Method 98.4 F 102 H 18 138/64 H 94 L Room Air 04/27/25 08:51 04/27/25 10:15 04/27/25 08:51 04/27/25 10:15 04/27/25 08:51 04/27/25 08:00 Objective Labs 04/27/25 04:50 04/27/25 04:50 Labs: Laboratory Results - last 24 hr 04/26/25 04/27/25 04/27/25 21:34 01:30 01:57 WBC 15.3 H RBC 2.98 L Hgb 8.9 L Hct 27.1 L MCV 91 MCH 29.9 MCHC 32.8 RDW Std Deviation 43.8 Plt Count 165 Neut % (Auto) 94 H Lymph % (Auto) 1 L [place] % (Auto) 3 Eos % (Auto) 0 Baso % (Auto) 0 Neut # (Auto) 14.3 H Lymph # (Auto) 0.2 L [place] # (Auto) 0.4 Eos # (Auto) 0.0 Baso # (Auto) 0.1 Immature Gran # (Auto) 0.29 H Absolute Nucleated RBC 0.02 H Immature Gran % 2 H Nucleated RBC % 0 Sodium 138 Potassium 3.7 Chloride 104 Carbon Dioxide 23.3 Anion Gap 11 BUN 45 H Creatinine 4.7 H* Estim Creat Clear Calc 18.8 L eGFR 14 L* BUN/Creatinine Ratio 10 L Glucose 165 H Calculated Osmolality 291 Lactic Acid 2.0 Calcium 8.6 Corrected Calcium 8.6 Phosphorus Magnesium 1.6 Total Bilirubin 0.7 AST 23 ALT 29 Alkaline Phosphatase 52 Total Protein 6.4 Albumin 4.0 Globulin 2.4 Albumin/Globulin Ratio 1.7 Procalcitonin 32.22 H Ur Collection Type Clean Catch Urine Color Yellow Urine Clarity Clear Urine pH 6.0 Ur Specific [place] 1.016 Urine Protein 3+ A Urine Glucose (UA) 1+ A Urine Ketones Negative Urine Blood Trace Urine Nitrite Negative Urine Bilirubin Negative Urine Urobilinogen (Auto) Negative Ur Leukocyte Esterase Negative Urine RBC 5 H Urine WBC 10 H Ur Squamous Epith Cells 0 Urine Bacteria Rare Ur Culture Indicated? Not Indicated Urine Opiates Screen Negative Urine Fentanyl Screen Negative Ur Barbiturates Screen Negative U Amphetamin/Meth Scrn Negative U Benzodiazepines Scrn Negative U Cocaine Metab Screen Negative U Marijuana (THC) Screen Negative Influenza A (Rapid) Negative Influenza B (Rapid) Negative 04/27/25 04:50 WBC 23.9 H D RBC 2.89 L Hgb 8.5 L Hct 26.5 L MCV 92 MCH 29.4 MCHC 32.1 RDW Std Deviation 46.2 H Plt Count 139 L Neut % (Auto) 93 H Lymph % (Auto) 1 L [place] % (Auto) 3 Eos % (Auto) 0 Baso % (Auto) 1 Neut # (Auto) 22.3 H Lymph # (Auto) 0.3 L [place] # (Auto) 0.7 Eos # (Auto) 0.0 Baso # (Auto) 0.1 Immature Gran # (Auto) 0.51 H Absolute Nucleated RBC 0.00 Immature Gran % 2 H Nucleated RBC % 0 Sodium 137 Potassium 4.6 D Chloride 102 Carbon Dioxide 23.9 Anion Gap 11 BUN 55 H Creatinine 4.9 H* Estim Creat Clear Calc 18.1 L eGFR 13 L* BUN/Creatinine Ratio 11 L Glucose 155 H Calculated Osmolality 291 Lactic Acid Calcium 8.5 Corrected Calcium 8.7 Phosphorus 4.1 Magnesium 1.6 Total Bilirubin AST ALT Alkaline Phosphatase Total Protein Albumin 3.8 Globulin Albumin/Globulin Ratio Procalcitonin Ur Collection Type Urine Color Urine Clarity Urine pH Ur Specific [place] Urine Protein Urine Glucose (UA) Urine Ketones Urine Blood Urine Nitrite Urine Bilirubin Urine Urobilinogen (Auto) Ur Leukocyte Esterase Urine RBC Urine WBC Ur Squamous Epith Cells Urine Bacteria Ur Culture Indicated? Urine Opiates Screen Urine Fentanyl Screen Ur Barbiturates Screen U Amphetamin/Meth Scrn U Benzodiazepines Scrn U Cocaine Metab Screen U Marijuana (THC) Screen Influenza A (Rapid) Influenza B (Rapid) Quality Measures Quality Measures sepsis Possible source: pulmonary Blood cultures ordered: yes Assessment & Plan Assessment Current Active Medications: Generic Name Dose Route Start Last Admin Trade Name Freq PRN Reason Stop Dose Admin Acetaminophen 650 mg 04/27/25 03:49 04/27/25 07:34 Acetaminophen 325 Mg Tablet PO 05/27/25 03:48 650 mg Q6H PRN Administration Fever >101.5 Apixaban 2.5 mg 04/27/25 09:00 04/27/25 08:05 Apixaban 2.5 Mg Tablet PO 05/18/25 08:59 2.5 mg BID CHARLES Administration Aspirin 81 mg 04/27/25 09:00 04/27/25 08:05 Aspirin Ec 81 Mg Tabec PO 05/27/25 08:59 81 mg QDAY CHARLES Administration Atorvastatin Calcium 80 mg 04/27/25 09:00 04/27/25 08:05 Atorvastatin Calcium 20 Mg Tablet PO 05/27/25 08:59 80 mg QDAY CHARLES Administration Calcitriol 0.25 mcg 04/27/25 09:00 04/27/25 08:05 Calcitriol 0.25 Mcg Capsule PO 05/27/25 08:59 0.25 mcg QDAY CHARLES Administration Dextrose 25 ml 04/27/25 04:14 Dextrose 50%-Water Inj 50 Ml Syringe IV 05/27/25 04:13 Q15MIN PRN BG 50-70 responsive npo pt Dextrose 50 ml 04/27/25 04:14 Dextrose 50%-Water Inj 50 Ml Syringe IV 05/27/25 04:13 Q15MIN PRN BG <50 OR BG <70 & pt unresponsive Epoetin Terry 10,000 unit 04/27/25 12:00 Epoetin Terry-Epbx Inj 10,000 Unit/Ml Vial (Non-Esrd) SC 04/27/25 12:01 X1 ONE Glucagon 1 mg 04/27/25 04:14 Glucagon Inj 1 Mg Vial IM Q15MIN PRN BG <70, and no IV access Azithromycin 250 mg/ Sterile 252.5 mls @ 252.5 mls/hr 04/28/25 09:00 Water 2.5 ml/ Sodium Chloride IV 05/05/25 08:59 QDAY CHARLES Albumin Human 25 gm in 100 mls @ 100 mls/hr 04/27/25 08:48 Albuminex 25% Ivpb IV PRN PRN DIALYSIS Ceftazidime 1 gm/ Sodium 50 mls @ 100 mls/hr 04/27/25 16:00 Chloride IV 05/04/25 15:59 [email or web address] CHARLES Protocol Vancomycin HCl/Dextrose 250 mls @ 120 mls/hr 04/27/25 18:00 Vancomycin/D5w 1,250 Mg Ivpb IV 04/27/25 20:04 X1 ONE Protocol Insulin Human Lispro 0 unit 04/27/25 07:30 04/27/25 08:06 Insulin Lispro (Admelog) 1 Unit/0.01 Ml Unit SC 05/27/25 07:29 1 unit AC CHARLES Administration Protocol Lactulose 20 gm 04/27/25 03:49 Lactulose Syrup 20 Gm/30 Ml Udc PO 05/27/25 08:59 QDAY PRN Constipation Protocol Pantoprazole Sodium 20 mg 04/27/25 09:00 04/27/25 08:06 Pantoprazole 20 Mg Tablet PO 05/27/25 08:59 20 mg DAILY CHARLES Administration Pharmacy Consult 1 each 04/27/25 10:00 Vancomycin Pharmacy To Dose 1 Each Each IV 05/27/25 09:59 QDAY PRN CONSULT Sodium Bicarbonate 325 mg 04/27/25 09:00 04/27/25 08:06 Sodium Bicarbonate 650 Mg Tablet PO 05/27/25 08:59 325 mg BID CHARLES Administration
--- NOTE | 2025-04-27 10:40 | PD.NEPHCONS ---
History of Present Illness Data of Consult Consult date: 04/27/25 Requesting Physician: Trinidad Ballesteros MD Primary Care Provider: Narciso Morrow MD Consult Narrative Reason for consult: ESRD, need for HD History of present illness: Mr. Ny is a 59-year-old gentleman with a longstanding history of diabetes, hypertension, dyslipidemia, end-stage renal disease on dialysis, congestive heart failure presented to the emergency department with fevers and chills. Patient recently was started on dialysis via right IJ PermCath. ED course: WBC 15.3, hemoglobin 8.9, platelets 165, sodium 138, potassium 3.7, BUN 45, creatinine 4.7, lactic acid 2, phosphorus 4.1, calcium 8.6, LFTs normal, Pro-Vineet 32.2, urinalysis shows no bacteria, urine tox screen normal, chest x-ray showed early pneumonia. Patient was started on antibiotics in the ED and a nephrology consultation was requested and lieu for dialysis. Surgical history: Appendectomy, right IJ dialysis catheter Allergies: NKDA Medications: Eliquis, aspirin, Lipitor, calcitriol, hydralazine, Januvia, metoprolol, Protonix, sodium bicarbonate, valsartan, tamsulosin Family history: All his family members have Diabetes Social history: Denies smoking cigarettes, drinking alcohol or using other illicit drugs cc:: cc: Trinidad Ballesteros MD Review of Systems Review of Systems Narrative Review of Systems: CONSTITUTIONAL: Patient complaining of fever, chills HEENT: Denies any visual disturbances or hearing problems. CARDIOVASCULAR: Patient denies any chest pain, shortness of breath, swelling in the lower extremities. PULMONARY: Patient denies any shortness of breath, cough. GASTROINTESTINAL: Patient denies any abdominal pain, constipation, nausea, vomiting, diarrhea. GENITOURINARY: Patient denies any urinary symptoms of burning or frequency or hematuria, denies any form in the urine. SKIN: Denies any rash. MUSCULOSKELETAL: Denies any muscular skeletal problems of joint pains. NEUROLOGICAL: Denies any neurological problems of strokes, seizures or confusion. Denies any memory problems. PSYCHIATRIC: Denies any depression or anxiety. LYMPHATICS : No lymphadenopathy Past Medical History Past Medical History NEUROLOGIC: Negative Neurological Disorders CARDIAC: Positive Hypertension; Negative Cardiac Disorders or Congestive Heart Failure RESPIRATORY: Negative Chronic Obstructive Pulmonary Disease (COPD) or Asthma GASTROINTESTINAL: Negative Gastrointestinal Disorders GENITOURINARY: Positive Renal Disease MUSCULOSKELETAL: Negative Musculoskeletal Disorders ENT: Positive Cataracts (right) ENDOCRINE: Positive Diabetes Mellitus Type 2; Negative Diabetes Mellitus Type 1 HEMATOLOGIC: Negative Sickle Cell Disease OTHER HISTORY: Negative Cancer Family History FAMILY HISTORY: Positive Family Cardiac Disorders; Negative Family Psychiatric Problems, Family Respiratory Disorders, Family Gastrointestinal Problems, Family Genitourinary Problems, Family Endocrine Disorders, Family Reproductive Disorders or Family Musculoskeletal Disorders Surgical History SURGICAL: Positive Ear Surgery; Negative Abdominal Surgery Social History SMOKING STATUS: Former smoker SECOND HAND EXPOSURE: No Meds Home Medications and Allergies Home Medications ?Medication ?Instructions ?Recorded ?Confirmed ?Type aspirin 81 mg tablet 81 mg PO QDAY 04/10/25 04/26/25 History atorvastatin 80 mg PO QDAY 04/10/25 04/26/25 History calcitriol 0.25 mcg capsule 0.25 mcg PO QDAY 04/10/25 04/26/25 History hydralazine 50 mg tablet 50 mg PO BID 04/10/25 04/26/25 History metoprolol succinate 50 mg 50 mg PO QDAY 04/10/25 04/26/25 History tablet,extended release 24 hr (Toprol XL) sitagliptin phosphate 25 mg tablet 25 mg PO QDAY 04/10/25 04/26/25 History (Januvia) sodium bicarbonate 325 mg tablet 325 mg PO BID 04/10/25 04/26/25 History tamsulosin 0.4 mg capsule 0.4 mg PO BID 04/10/25 04/26/25 History valsartan 160 mg tablet 160 mg PO QDAY 04/10/25 04/26/25 History pantoprazole 20 mg tablet,delayed 20 mg PO .QD 04/26/25 04/26/25 History release Allergies Allergy/AdvReac Type Severity Reaction Status Date / Time No Known Allergies Allergy Verified 04/26/25 20:27 Exam Vital Signs Temp Pulse Resp BP Pulse Ox O2 Del Method O2 Flow Rate 36.8 C 81 16 129/74 99 Room Air 4 04/28/25 12:00 04/28/25 12:00 04/28/25 12:00 04/28/25 12:00 04/28/25 12:00 04/28/25 12:00 04/28/25 08:00 Narrative Exam GENERAL APPEARANCE: Patient currently seen in dialysis. Having chills and rigors. HEENT: EOMI, PERRLA NECK: Neck supple, no JVD or bruit CARDIOVASCULAR: Heart regular, no murmurs LUNGS/CHEST: Chest clear to auscultation. No rales, rhonchi, wheezing ABDOMEN: Soft, nontender, nondistended. No masses. Normal bowel sounds. EXTREMITIES: No edema, clubbing or cyanosis. SKIN: Skin exam normal without any rashes. Right IJ dialysis catheter MUSCULOSKELETAL: Musculoskeletal exam normal PSYCHIATRIC: Normal mood, affect LYMPHATICS: No lymphadenopathy noted NEUROLOGICAL : No neurological deficits Results Labs 04/28/25 05:57 04/28/25 05:57 Labs: Short CBC 04/28/25 Range/Units 05:57 WBC 11.7 H D (3.8-10.6) Thou/mm3 Hgb 8.6 L (13.5-16.0) g/dL Hct 27.0 L (41.0-53.0) % Plt Count 118 L (140-440) Thou/mm3 BMP 04/28/25 05:57 Sodium 136 Potassium 4.1 D Chloride 100 Carbon Dioxide 26.6 BUN 51 H Creatinine 4.2 H* D Glucose 151 H Calcium 8.4 Liver Function 04/28/25 Range/Units 05:57 Albumin 3.6 (3.5-5.0) gm/dL Assessment & Plan Assessment and plan (1) ESRD needing dialysis: Status: Acute Assessment and plan: ESRD secondary to hypertensive/diabetic nephropathy. Patient currently seen on dialysis. Tolerating dialysis without any problems. Hemodialysis for 3 hours, 2K, ultrafiltration 0 L, Epogen 6000, no heparin ordered. Plan of care discussed with the dialysis nurse. Please see dialysis flowsheet for further details. (2) Pneumonia: Status: Acute Assessment and plan: On antibiotics (3) Sepsis: Status: Acute Assessment and plan: Patient noted to have gram-positive cocci-staph. Probably catheter related bacteremia versus pneumonia. If persistent fevers and elevated white count noted-Will DC dialysis catheter on Tuesday. (4) Diabetes: Status: Acute Assessment and plan: Accu-Cheks, sliding scale (5) HTN (hypertension), benign: Status: Acute Assessment and plan: On hydralazine, metoprolol, valsartan at home. (6) Hyperlipidemia: Status: Acute Assessment and plan: On statin (7) Fever: Status: Acute Assessment and plan: Probably catheter related bacteremia. Ibuprofen given. Additional Assessment & Plan Additional Plan: Plan of care discussed primary team. Thank you Summer for allowing me to participate in the care of Mr. Ny
[2025-04-27] MEDS: IBUPROFEN TAB 600 MG TABLET PO (10:55)
--- NOTE | 2025-04-27 11:02 | PC.NURSE ---
PT NOTED W/ CHILLS TEMP AT 102.8 NOTIFIED W/ ORDER TO ADMIN IBUPROFEN 600MG TO ADDRESS, ORDER CARRIED OUT WILL OCNT. TO MONITOR
--- NOTE | 2025-04-27 11:43 | PC.NURSE ---
Addendum entered by Jr Serrano RN 04/27/25 11:48: STARTED FLUID ADMISSION AT 300ML, WILL ADMIN 200ML MORE NEEDED. WILL F/U W/ CAROUSEL ATTENDANT FOR HEART RHYTHM POST Original Note: PT NOTED W/ PVC RUNS PER CAROUSEL ATTENDANT AND BEDSIDE NURSE SUSAN, PT REMAINS ASYMPTOMATIC DENYING ALL C/O CHEST PAIN, PRESSURE, LEVY, SOB OR DISCOMFORT. MD CHRISTOPHER NOTIFIED W/ ORDER TO STOP FLUID REMOVAL AND ADMINISTER 500CC NS BOLUS, ORDER CARRIED OUT WILL CONT. TO MONITOR
--- NOTE | 2025-04-27 11:50 | PC.NURSE ---
Addendum entered by Jr Serrano RN 04/27/25 11:54: MD CHRISTOPHER NOTIFIED, W/ ORDER TO CONT. DIALYSIS TX TOLERATED. Original Note: TELE[employer]APH PLANT MAINTAINER REPORTS PT'S HEART RHYTHMS NO LONGER W/ PVC'S, PT REMAINS ASYMPTOMATIC AND W/O COMPLAINTS. WILL CONT. TO MARICEL
[2025-04-27] MEDS: HEPARIN SOD INJ 1000 UNIT/ML VIAL 10 ML 4100 UNIT INDWELLCAT (12:37)
[2025-04-27] MEDS: EPOETIN ALFA-EPBX INJ 10,000 UNIT/ML VIAL (NON-ESRD) 10000 UNIT SC (12:44)
--- NOTE | 2025-04-27 15:33 | PC.SS ---
Addendum entered by MANNY Mukherjee 04/27/25 16:14: Rounding note: still has fever, not medically clear yet. Original Note: SS attempted second time to engage in assessment with patient. Patient asleep and SS unable to arouse patient from sleep. SS to attempt again 04/28/25. SS attempted to complete initial assessment, patient not in room at this time.
--- NOTE | 2025-04-27 17:23 | ESPR_ITS ---
<Statement entered by Alissa Thakkar MD - 04/30/25 14:37> Overnight, patient had a fever at 103 ?F, and improved with Tylenol. Patient continues to feel chills while receiving dialysis. However, denies any changes in vision, headache, pleuritic chest pain, nausea or vomiting. No infection seen on superficial adjacent skin of dialysis catheter. Will consult nephrology for further recommendations regarding concern for possible bacteremia and removal of tunneled dialysis catheter. Patient will be on vancomycin and ceftazidime for now. Will continue to manage patient's diabetes with insulin sliding scale, and continue to monitor patient's hemoglobin. I discussed with and supervised the process engineering intern physician who took care of this patient. I personally saw and examined the patient and discussed the assessment and plan with the entire medicine team, including my attending Dr. Vera, I agree with most of the assessment and plan as documented below Alissa Thakkar M.D. PGY-3 Disclaimer: Despite multiple revisions, due to the dictation software being used, the document bellow may not be free of grammatical errors including phonetic/typographic errors. However, this does not deter from our commitment to providing health care in the patient's best interest in mind. Documentation for date of: 04/27/25 Subjective Subjective Interval history: This is a 59-year-old male with PMHx of HFrEF EEF30% 2019, DVT on ELIQUIS, IDDM, HTN, HLD, anemia, CKD newly on HD TTS with Dr. Venegas, presenting to the ED on 04/26/25 with CC of rigors and fever of 103, admitted for acute febrile illness. Overnight, he continued to spike fevers, highest temp at 103, given tylenol which dropped it to 100. He was examined while on dialysis, still feeling chills. Denies headache, vision changes, cough, dyspnea, pleuritic chest pain, N/V/D, abdominal pain. Also denies pain with manipulation of the dialysis line. CXR showed early pneumonia at the lung bases. Nephrology consulted. Concern of line infection over pneumonia, Vancomycin and ceftazidime added for line infection empiric coverage. Blood cuture was positive for GPC. Will likely need the line replaced, try to coordinate for tuesday. Currently on Vanc and ceftazidime (9/27- Exam Vital Signs Temp Pulse Resp BP Pulse Ox O2 Del Method 97.3 F 90 16 122/65 97 Room Air 04/27/25 16:00 04/27/25 16:00 04/27/25 16:00 04/27/25 16:00 04/27/25 16:00 04/27/25 16:00 Narrative Exam General: Middle aged patient, no acute distress, ill appearing. HEENT: Mucosa moist. No oropharyngeal lesions or exudate. Pupils are equal and reactive to light bilaterally, tunneled dialysis line is non-painful with manipulation, no overlying erythema, crepitus, or tenderness to palpation. Cardiovascular: Normal S1 and S2. Regular rate and rhythm. No murmur appreciated Respiratory: Clear to auscultation bilaterally without wheezes or crackles. Abdomen: Soft, nontender, not distended, Skin: Dry, no rashes or bruising Musculoskeletal: No gross injuries. Able to move all 4 extremities. Non edematous lower extremities. Neuro: Alert and oriented x3. No focal neuro deficits. Psych: Normal affect and mood Objective Labs 04/28/25 05:57 04/28/25 05:57 Labs: Laboratory Results - last 24 hr 04/26/25 04/27/25 04/27/25 21:34 01:30 01:57 WBC 15.3 H RBC 2.98 L Hgb 8.9 L Hct 27.1 L MCV 91 MCH 29.9 MCHC 32.8 RDW Std Deviation 43.8 Plt Count 165 Neut % (Auto) 94 H Lymph % (Auto) 1 L [place] % (Auto) 3 Eos % (Auto) 0 Baso % (Auto) 0 Neut # (Auto) 14.3 H Lymph # (Auto) 0.2 L [place] # (Auto) 0.4 Eos # (Auto) 0.0 Baso # (Auto) 0.1 Immature Gran # (Auto) 0.29 H Absolute Nucleated RBC 0.02 H Immature Gran % 2 H Nucleated RBC % 0 Sodium 138 Potassium 3.7 Chloride 104 Carbon Dioxide 23.3 Anion Gap 11 BUN 45 H Creatinine 4.7 H* Estim Creat Clear Calc 18.8 L eGFR 14 L* BUN/Creatinine Ratio 10 L Glucose 165 H Calculated Osmolality 291 Lactic Acid 2.0 Calcium 8.6 Corrected Calcium 8.6 Phosphorus Magnesium 1.6 Total Bilirubin 0.7 AST 23 ALT 29 Alkaline Phosphatase 52 Total Protein 6.4 Albumin 4.0 Globulin 2.4 Albumin/Globulin Ratio 1.7 Procalcitonin 32.22 H Ur Collection Type Clean Catch Urine Color Yellow Urine Clarity Clear Urine pH 6.0 Ur Specific [place] 1.016 Urine Protein 3+ A Urine Glucose (UA) 1+ A Urine Ketones Negative Urine Blood Trace Urine Nitrite Negative Urine Bilirubin Negative Urine Urobilinogen (Auto) Negative Ur Leukocyte Esterase Negative Urine RBC 5 H Urine WBC 10 H Ur Squamous Epith Cells 0 Urine Bacteria Rare Ur Culture Indicated? Not Indicated Urine Opiates Screen Negative Urine Fentanyl Screen Negative Ur Barbiturates Screen Negative U Amphetamin/Meth Scrn Negative U Benzodiazepines Scrn Negative U Cocaine Metab Screen Negative U Marijuana (THC) Screen Negative Influenza A (Rapid) Negative Influenza B (Rapid) Negative 04/27/25 04:50 WBC 23.9 H D RBC 2.89 L Hgb 8.5 L Hct 26.5 L MCV 92 MCH 29.4 MCHC 32.1 RDW Std Deviation 46.2 H Plt Count 139 L Neut % (Auto) 93 H Lymph % (Auto) 1 L [place] % (Auto) 3 Eos % (Auto) 0 Baso % (Auto) 1 Neut # (Auto) 22.3 H Lymph # (Auto) 0.3 L [place] # (Auto) 0.7 Eos # (Auto) 0.0 Baso # (Auto) 0.1 Immature Gran # (Auto) 0.51 H Absolute Nucleated RBC 0.00 Immature Gran % 2 H Nucleated RBC % 0 Sodium 137 Potassium 4.6 D Chloride 102 Carbon Dioxide 23.9 Anion Gap 11 BUN 55 H Creatinine 4.9 H* Estim Creat Clear Calc 18.1 L eGFR 13 L* BUN/Creatinine Ratio 11 L Glucose 155 H Calculated Osmolality 291 Lactic Acid Calcium 8.5 Corrected Calcium 8.7 Phosphorus 4.1 Magnesium 1.6 Total Bilirubin AST ALT Alkaline Phosphatase Total Protein Albumin 3.8 Globulin Albumin/Globulin Ratio Procalcitonin Ur Collection Type Urine Color Urine Clarity Urine pH Ur Specific [place] Urine Protein Urine Glucose (UA) Urine Ketones Urine Blood Urine Nitrite Urine Bilirubin Urine Urobilinogen (Auto) Ur Leukocyte Esterase Urine RBC Urine WBC Ur Squamous Epith Cells Urine Bacteria Ur Culture Indicated? Urine Opiates Screen Urine Fentanyl Screen Ur Barbiturates Screen U Amphetamin/Meth Scrn U Benzodiazepines Scrn U Cocaine Metab Screen U Marijuana (THC) Screen Influenza A (Rapid) Influenza B (Rapid) Quality Measures Quality Measures sepsis Current suspected stage: ruled out Possible source: pulmonary Blood cultures ordered: yes Antibiotic ordered: Yes Assessment & Plan Assessment Current Active Medications: Generic Name Dose Route Start Last Admin Trade Name Freq PRN Reason Stop Dose Admin Acetaminophen 650 mg 04/27/25 03:49 04/27/25 13:41 Acetaminophen 325 Mg Tablet PO 05/27/25 03:48 650 mg Q6H PRN Administration Fever >101.5 Apixaban 2.5 mg 04/27/25 09:00 04/27/25 08:05 Apixaban 2.5 Mg Tablet PO 05/18/25 08:59 2.5 mg BID CHARLES Administration Aspirin 81 mg 04/27/25 09:00 04/27/25 08:05 Aspirin Ec 81 Mg Tabec PO 05/27/25 08:59 81 mg QDAY CHARLES Administration Atorvastatin Calcium 80 mg 04/27/25 09:00 04/27/25 08:05 Atorvastatin Calcium 20 Mg Tablet PO 05/27/25 08:59 80 mg QDAY CHARLES Administration Calcitriol 0.25 mcg 04/27/25 09:00 04/27/25 08:05 Calcitriol 0.25 Mcg Capsule PO 05/27/25 08:59 0.25 mcg QDAY CHARLES Administration Dextrose 25 ml 04/27/25 04:14 Dextrose 50%-Water Inj 50 Ml Syringe IV 05/27/25 04:13 Q15MIN PRN BG 50-70 responsive npo pt Dextrose 50 ml 04/27/25 04:14 Dextrose 50%-Water Inj 50 Ml Syringe IV 05/27/25 04:13 Q15MIN PRN BG <50 OR BG <70 & pt unresponsive Glucagon 1 mg 04/27/25 04:14 Glucagon Inj 1 Mg Vial IM Q15MIN PRN BG <70, and no IV access Heparin Sodium (Porcine) 4,100 unit 04/27/25 12:11 04/27/25 12:37 Heparin Sod Inj 1000 Unit/Ml Vial 10 Ml INDWELLCAT 05/11/25 12:10 4,100 unit PRN PRN Administration DIALYSIS Azithromycin 250 mg/ Sterile 252.5 mls @ 252.5 mls/hr 04/28/25 09:00 Water 2.5 ml/ Sodium Chloride IV 05/05/25 08:59 QDAY CHARLES Albumin Human 25 gm in 100 mls @ 100 mls/hr 04/27/25 08:48 Albuminex 25% Ivpb IV PRN PRN DIALYSIS Ceftazidime 1 gm/ Sodium 50 mls @ 100 mls/hr 04/27/25 16:00 04/27/25 16:20 Chloride IV 05/04/25 15:59 100 mls/hr [email or web address] CHARLES Administration Protocol Vancomycin HCl/Dextrose 250 mls @ 120 mls/hr 04/27/25 18:00 Vancomycin/D5w 1,250 Mg Ivpb IV 04/27/25 20:04 X1 ONE Protocol Ibuprofen 600 mg 04/27/25 10:50 04/27/25 10:55 Ibuprofen Tab 600 Mg Tablet PO 05/27/25 10:49 600 mg Q6HR PRN Administration PAIN OR FEVER > 101 Insulin Human Lispro 0 unit 04/27/25 07:30 04/27/25 16:29 Insulin Lispro (Admelog) 1 Unit/0.01 Ml Unit SC 05/27/25 07:29 2 unit AC CHARLES Administration Protocol Lactulose 20 gm 04/27/25 03:49 Lactulose Syrup 20 Gm/30 Ml Udc PO 05/27/25 08:59 QDAY PRN Constipation Protocol Pantoprazole Sodium 20 mg 04/27/25 09:00 04/27/25 08:06 Pantoprazole 20 Mg Tablet PO 05/27/25 08:59 20 mg DAILY CHARLES Administration Pharmacy Consult 1 each 04/27/25 10:00 Vancomycin Pharmacy To Dose 1 Each Each IV 05/27/25 09:59 QDAY PRN CONSULT Sodium Bicarbonate 325 mg 04/27/25 09:00 04/27/25 08:06 Sodium Bicarbonate 650 Mg Tablet PO 05/27/25 08:59 325 mg BID CHARLES Administration Plan his is a 59-year-old male with PMHx of HFrEF EEF30% 2019, DVT on ELIQUIS, IDDM, HTN, HLD, anemia, CKD newly on HD TTS with Dr. Venegas, presenting to the ED with CC of rigors and fever of 103. Admitted for AHRF in setting of PNA. #Acute Febrile Illness #possible CLABSI #AHRF in setting of #PNA, likely GNR Present with fever and rigors on the morning of admission. Met 3/4 SIRS criteria with fever 103, tachycardia 105 and WBC 15.3. No signs of EOD and normal LA, unlikely septic. He was found taschypnic and desatting to low 90s on room air. CXR showed PNA and has mild coarse breath sounds on exam. Received 1.0L NS in ED. Given his continued spiking fevers and GPC found on blood culture, central line infection favored. ? Discontinue CTX and AZITHROMYCIN in favor of vancomycin and ceftazidime (04/27- -Nephrology consulted, appreciate recommendations. -Will likely need line removed, tunneled dialysis catheter so it may have to wait until tuesday for replacement. ? Continue TYLENOL for fever ? Oxygen PRN ESRD on HD TTS Newely to HD since this month. Completed last session on thru tunneled cath which appear to be intact without erythema, pain with manipulation, or crepitus. Depsite these findings, still considering CLABSI given the serverity of his constitutional symptoms. Renal function near baseline. No signs of volume overload on exam. ? Continue inpatient HD TTS ? Continue home CALCITRIOL 0.25 mcg IDDM A1c 6.6 from earlier this month, admission glucose 165. He has a history of hypoglycemia on previous admission. ? Insulin sliding scale ? Accuchecks Anemia of chronic disease Hgb 8.9 and around baseline. No signs or symptoms of abnormal bleed. ? Transfuse if Hgb < 8.0 ? Daily labs HFrEF with EEF 30% in 2019 As present on ECHO from 2019. No signs of fluid overload, does not appear in CHF exacerbation. Not on full GDMT. ? Will follow-up with repeat ECHO ? Continue home ASA 81 mg daily ? Consider resuming home METOPROLOL 50 mg XL when BP can tolerate ? Work towards full GDMT as tolerated HTN HLD Chronic problems. Last lipid panel from earlier this month with TG 67 and LDL 57. BP currently soft 103/58, HR 92. ? Continue home ATORVASTATIN 80 mg ? Consider resuming home antihypertensives when able UE DVT, likely unprovoked History of DVT of upper extremity, likely unprovoked. Previously on XARALTO which was switched to ELIQUIS on last admission and appropriately given ESRD. ? Continue home ELIQUIS 2.5 mg BID BPH ? Consider resume home TAMSOLUSIN 0.4 mg when able Health Maintenance: DVT prophylaxis: eliquis Diet: renal diet [place]: No Lines: PIV, tunneled dialysis catheter, right side CODE STATUS: Full code Disposition: Pending infection treatment, possible line removal. Patient's plan and care discussed with my attending, Dr. Vera and my senior Dr Thakkar. Kyle Reyes DO PGY-1 ([facility] Resident) Attending Provider Attestation/Addendum Summer Bess DO, attest that I was physically present for the atkins portions of the service and evaluated the patient with the resident and I reviewed and discussed the case with the resident and agree with the resident's findings and plans of care as documented above Patient seen and eval this a.m. Family at bedside. They state that the patient began having rigors and fevers yesterday around 7 PM. He had been feeling fine prior to this. Patient is a bit dialysis patient and produces some urine, but denies any dysuria. Chest x-ray was done in the ED showing mild pneumonia and vascular congestion. However, patient denies any sick contacts or upper respiratory symptoms. Patient continues to be febrile and tremulous.He is noted to have a leukocytosis of 23.9. Suspect bacteremia due to symptoms of rigors and high fever. Very low suspicion for community-acquired pneumonia at this time. Blood cultures did show GPC preliminarily. Will repeat blood cultures in the morning. Antibiotics were broadened to vancomycin and. Case was also discussed with nephrology. Will repeat blood culture in AM. If he continues to grow GPC in blood culture, anticipate removal of dialysis line. Will also obtain echocardiogram to rule out endocarditis as cause of GPC bacteremia. Patient currently states that he is feeling improved at this time after dialysis.
[2025-04-27] MEDS: VANCOMYCIN/D5W 1,250 MG IVPB 250 ML 120 MG IV (18:20)
--- NOTE | 2025-04-27 23:50 | EVENTNT_ITS ---
Documentation for date of: 04/27/25 Event Note Event Note: Rapid response was called at 11:35pm for fever Upon arrival, the patient was hemodynamically stable with a temperature of 101.2?F. The only reported complaint was itching around the right groin area. On examination, there were no signs of erythema, swelling, or soft tissue changes noted. Per the primary team, there is concern for a possible catheter-related bloodstream infection with Bcx showing GPC 4/. The plan per primary team is to replace the catheter on Tuesday. The patient is currently receiving vancomycin and ceftazidime which is appropriate for his infection. Intervention: * Continue current antibiotic regimen (vancomycin and ceftazidime) * Acetaminophen 650 mg x1 for fever management * Monitor closely for changes in vital signs, symptoms, or signs of local infection Patient seen and assessed under supervision of attending physician Dr.Alhalaibeh Vidya Hicks MD PGY-1, Internal Medicine Please note: this document was transcribed using voice recognition technology; minor inaccuracies may be present.
[2025-04-28] VITALS (12 sets, daily range): BP systolic 121–140; BP diastolic 69–76; PULSE 71–102; RESP 13–99; TEMP 36.6–39.1; O2SAT 94–100
[2025-04-28 06:26] LABS: Basophils # (Auto) 0.1 Thou/mm3 (0.0-0.2); Basophils % (Auto) 0 % (0-2.5); Eosinophils # (Auto) 0.0 Thou/mm3 (0.0-0.5); Eosinophils % (Auto) 0 % (0-10); Hematocrit 27.0 % (41.0-53.0); Immature Granulocytes Auto 0.08 Thou/mm3 (0.00-0.00); Lymphocytes # (Auto) 0.3 Thou/mm3 (1.0-4.8); Lymphocytes % (Auto) 3 % (10-50); Mean Corpuscular HGB Conc 31.9 g/dl (31.0-37.0); Mean Corpuscular Hemoglobin 29.3 pg (25.0-35.0); Mean Corpuscular Volume 92 fL (80-100); Monocytes # (Auto) 0.4 Thou/mm3 (0.0-0.8); Monocytes % (Auto) 4 % (0-12); Neutrophils # (Auto) 10.8 Thou/mm3 (1.8-7.7); Neutrophils % (Auto) 92 % (37-80); Nucleated Red Blood Cell # 0.00 Thou/mm3 (0.00-0.00); Nucleated Red Blood Cell % 0 /100 WBC (0); Platelet Count 118 Thou/mm3 (140-440); RDW Standard Deviation 46.8 fL (35.1-43.9); Red Blood Count 2.94 Miln/mm3 (4.50-5.90); White Blood Count 11.7 Thou/mm3 (3.8-10.6)
[2025-04-28 06:27] LABS: Hemoglobin 8.6 g/dL (13.5-16.0)
[2025-04-28 06:50] LABS: Albumin, Serum 3.6 gm/dL (3.5-5.0); Anion Gap 9 (7-16); BUN/Creatinine Ratio 12 Ratio (12-20); Blood Urea Nitrogen 51 mg/dL (9-23); Calcium 8.4 mg/dL (8.3-10.6); Calcium (Corrected) 8.7 mg/dL (8.5-10.1); Carbon Dioxide 26.6 mMol/L (20.0-31.0); Chloride 100 mMol/L (98-107); Creatinine (Component) 4.2 mg/dL (0.6-1.3); Estimated Creatinine Clearance 21.5 mL/min (>60); Glucose 151 mg/dL (74-106); Osmolality,Calculated 288 (275-295); Phosphorous 4.2 mg/dL (2.4-5.1); Potassium 4.1 mMol/L (3.4-5.1); Sodium 136 mMol/L (136-145); Vancomycin,Random 13.7 mcg/mL; eGFR 15 See Note
[2025-04-28] MEDS: IBUPROFEN TAB 600 MG TABLET PO (07:12)
--- NOTE | 2025-04-28 07:14 | ESPR_ITS ---
Documentation for date of: 04/28/25 Subjective Subjective Interval history: This is a 59-year-old male with PMHx of HFrEF EEF30% 2019, DVT on ELIQUIS, IDDM, HTN, HLD, anemia, CKD newly on HD TTS with Dr. Venegas, presenting to the ED on 04/26/25 with CC of rigors and fever of 103, admitted for acute febrile illness. 04/27 Overnight, he continued to spike fevers, highest temp at 103, given tylenol which dropped it to 100. He was examined while on dialysis, still feeling chills. Denies headache, vision changes, cough, dyspnea, pleuritic chest pain, N/V/D, abdominal pain. Also denies pain with manipulation of the dialysis line. CXR showed early pneumonia at the lung bases. Nephrology consulted. Concern of line infection over pneumonia, Vancomycin and ceftazidime added for line infection empiric coverage. Blood cuture was positive for GPC. Will likely need the line replaced, try to coordinate for tuesday. Currently on Vanc and ceftazidime (04/27- 04/28 Rapid called last night for fever of 102.4, given tylenol. Patient examined at bedside, feeling a little bit better but not well. Hes remained afebrile since his rapid response last night. VSS. repeat blood cx today is still pending. Continue on current antibiotic regimen, Vanc and ceftazidime. Exam Vital Signs Temp Pulse Resp BP Pulse Ox O2 Del Method 99.7 F 89 13 121/71 100 Nasal Cannula 04/28/25 07:12 04/28/25 04:00 04/28/25 04:00 04/28/25 04:00 04/28/25 04:00 04/28/25 04:00 Narrative Exam General: Middle aged patient, no acute distress, appears slightly less ill appearing compared to yesterday. HEENT: Mucosa moist. No oropharyngeal lesions or exudate. Pupils are equal and reactive to light bilaterally, tunneled dialysis line is non-painful with manipulation, no overlying erythema, crepitus, or tenderness to palpation. Cardiovascular: Normal S1 and S2. Regular rate and rhythm. No murmur appreciated Respiratory: Clear to auscultation bilaterally without wheezes or crackles. Abdomen: Soft, nontender, not distended, Skin: Dry, no rashes or bruising Musculoskeletal: No gross injuries. Able to move all 4 extremities. Non edematous lower extremities. Neuro: Alert and oriented x3. No focal neuro deficits. Psych: Normal affect and mood Objective Labs 04/29/25 05:25 04/29/25 05:25 Labs: Laboratory Results - last 24 hr 04/28/25 05:57 WBC 11.7 H D RBC 2.94 L Hgb 8.6 L Hct 27.0 L MCV 92 MCH 29.3 MCHC 31.9 RDW Std Deviation 46.8 H Plt Count 118 L Neut % (Auto) 92 H Lymph % (Auto) 3 L [place] % (Auto) 4 Eos % (Auto) 0 Baso % (Auto) 0 Neut # (Auto) 10.8 H Lymph # (Auto) 0.3 L [place] # (Auto) 0.4 Eos # (Auto) 0.0 Baso # (Auto) 0.1 Immature Gran # (Auto) 0.08 H Absolute Nucleated RBC 0.00 Immature Gran % 1 H Nucleated RBC % 0 Sodium 136 Potassium 4.1 D Chloride 100 Carbon Dioxide 26.6 Anion Gap 9 BUN 51 H Creatinine 4.2 H* D Estim Creat Clear Calc 21.5 L eGFR 15 L BUN/Creatinine Ratio 12 Glucose 151 H Calculated Osmolality 288 Calcium 8.4 Corrected Calcium 8.7 Phosphorus 4.2 Albumin 3.6 Random Vancomycin 13.7 Quality Measures Quality Measures sepsis Current suspected stage: ruled out Possible source: pulmonary Blood cultures ordered: yes Antibiotic ordered: Yes Assessment & Plan Assessment Current Active Medications: Generic Name Dose Route Start Last Admin Trade Name Freq PRN Reason Stop Dose Admin Acetaminophen 650 mg 04/27/25 03:49 04/27/25 13:41 Acetaminophen 325 Mg Tablet PO 05/27/25 03:48 650 mg Q6H PRN Administration Fever >101.5 Apixaban 2.5 mg 04/27/25 09:00 04/27/25 20:09 Apixaban 2.5 Mg Tablet PO 05/18/25 08:59 2.5 mg BID CHARLES Administration Aspirin 81 mg 04/27/25 09:00 04/27/25 08:05 Aspirin Ec 81 Mg Tabec PO 05/27/25 08:59 81 mg QDAY CHARLES Administration Atorvastatin Calcium 80 mg 04/27/25 09:00 04/27/25 08:05 Atorvastatin Calcium 20 Mg Tablet PO 05/27/25 08:59 80 mg QDAY CHARLES Administration Calcitriol 0.25 mcg 04/27/25 09:00 04/27/25 08:05 Calcitriol 0.25 Mcg Capsule PO 05/27/25 08:59 0.25 mcg QDAY CHARLES Administration Dextrose 25 ml 04/27/25 04:14 Dextrose 50%-Water Inj 50 Ml Syringe IV 05/27/25 04:13 Q15MIN PRN BG 50-70 responsive npo pt Dextrose 50 ml 04/27/25 04:14 Dextrose 50%-Water Inj 50 Ml Syringe IV 05/27/25 04:13 Q15MIN PRN BG <50 OR BG <70 & pt unresponsive Glucagon 1 mg 04/27/25 04:14 Glucagon Inj 1 Mg Vial IM Q15MIN PRN BG <70, and no IV access Heparin Sodium (Porcine) 4,100 unit 04/27/25 12:11 04/27/25 12:37 Heparin Sod Inj 1000 Unit/Ml Vial 10 Ml INDWELLCAT 05/11/25 12:10 4,100 unit PRN PRN Administration DIALYSIS Azithromycin 250 mg/ Sterile 252.5 mls @ 252.5 mls/hr 04/28/25 09:00 Water 2.5 ml/ Sodium Chloride IV 05/05/25 08:59 QDAY CHARLES Albumin Human 25 gm in 100 mls @ 100 mls/hr 04/27/25 08:48 Albuminex 25% Ivpb IV PRN PRN DIALYSIS Ceftazidime 1 gm/ Sodium 50 mls @ 100 mls/hr 04/27/25 16:00 04/27/25 16:20 Chloride IV 05/04/25 15:59 100 mls/hr [id number] CHARLES Administration Protocol Vancomycin/Sodium Chloride 100 mls @ 120 mls/hr 04/28/25 09:00 Vancomycin/Ns 500 Mg Ivpb IV 04/28/25 09:49 X1 ONE Protocol Ibuprofen 600 mg 04/27/25 10:50 04/28/25 07:12 Ibuprofen Tab 600 Mg Tablet PO 05/27/25 10:49 600 mg Q6HR PRN Administration PAIN OR FEVER > 101 Insulin Human Lispro 0 unit 04/27/25 07:30 04/27/25 16:29 Insulin Lispro (Admelog) 1 Unit/0.01 Ml Unit SC 05/27/25 07:29 2 unit AC CHARLES Administration Protocol Lactulose 20 gm 04/27/25 03:49 Lactulose Syrup 20 Gm/30 Ml Udc PO 05/27/25 08:59 QDAY PRN Constipation Protocol Pantoprazole Sodium 20 mg 04/27/25 09:00 04/27/25 08:06 Pantoprazole 20 Mg Tablet PO 05/27/25 08:59 20 mg DAILY CHARLES Administration Pharmacy Consult 1 each 04/27/25 10:00 Vancomycin Pharmacy To Dose 1 Each Each IV 05/27/25 09:59 QDAY PRN CONSULT Sodium Bicarbonate 325 mg 04/27/25 09:00 04/27/25 20:07 Sodium Bicarbonate 650 Mg Tablet PO 05/27/25 08:59 325 mg BID CHARLES Administration Plan This is a 59-year-old male with PMHx of HFrEF EEF30% 2019, DVT on ELIQUIS, IDDM, HTN, HLD, anemia, CKD newly on HD TTS with Dr. Venegas, presenting to the ED with CC of rigors and fever of 103. Admitted for AHRF in setting of PNA. #Acute Febrile Illness #possible CLABSI #AHRF in setting of #PNA, likely GNR Present with fever and rigors on the morning of admission. Met 3/4 SIRS criteria with fever 103, tachycardia 105 and WBC 15.3. No signs of EOD and normal LA, unlikely septic. He was found taschypnic and desatting to low 90s on room air. CXR showed PNA and has mild coarse breath sounds on exam. Received 1.0L NS in ED. Given his continued spiking fevers and GPC found on blood culture, central line infection favored. ? Discontinue CTX and AZITHROMYCIN in favor of vancomycin and ceftazidime (04/27- -Nephrology consulted, appreciate recommendations. -Will likely need line removed, tunneled dialysis catheter so it may have to wait until tuesday for replacement. ? Continue TYLENOL for fever ? Oxygen PRN - Repeat blood cx pending. ESRD on HD TTS Newely to HD since earleir this month. Completed last session on thru tunneled cath which appear to be intact without erythema, pain with manipulation, or crepitus. Depsite these findings, still considering CLABSI given the serverity of his constitutional symptoms. Renal function near baseline. No signs of volume overload on exam. ? Continue inpatient HD TTS ? Continue home CALCITRIOL 0.25 mcg IDDM A1c 6.6 from earlier this month, admission glucose 165. He has a history of hypoglycemia on previous admission. Glucose continues to be stable. ? Insulin sliding scale ? Accuchecks Anemia of chronic disease Stable. Hgb 8.9 and around baseline. No signs or symptoms of abnormal bleed. ? Transfuse if Hgb < 8.0 ? Daily labs HFrEF with EEF 30% in 2019 As present on ECHO from 2019. No signs of fluid overload, does not appear in CHF exacerbation. Not on full GDMT. ? Will follow-up with repeat ECHO ? Continue home ASA 81 mg daily ? home METOPROLOL 50 mg XL started ? Work towards full GDMT as tolerated HTN HLD Chronic problems. Last lipid panel from earlier this month with TG 67 and LDL 57. BP currently soft 103/58, HR 92. ? Continue home ATORVASTATIN 80 mg ? Consider resuming home antihypertensives when able UE DVT, likely unprovoked History of DVT of upper extremity, likely unprovoked. Previously on XARALTO which was switched to ELIQUIS on last admission and appropriately given ESRD. ? Continue home ELIQUIS 2.5 mg BID BPH ? Consider resume home TAMSOLUSIN 0.4 mg when able Health Maintenance: DVT prophylaxis: eliquis Diet: renal diet [place]: No Lines: PIV, tunneled dialysis catheter, right side CODE STATUS: Full code Disposition: Pending infection treatment, possible line removal. Patient's plan and care discussed with my attending, Dr. Chuy Reyes DO PGY-1 ([facility] Resident) Attending Provider Attestation/Addendum Summer Bess DO, attest that I was physically present for the atkins portions of the service and evaluated the patient with the resident and I reviewed and discussed the case with the resident and agree with the resident's findings and plans of care as documented above Patient seen and evaluated this AM. Leukocytosis downtrending. Patient reports feeling well. No acute events overnight. Patient was febrile overnight. Will repeat Bcx and continue wtih vancomycin until further speciation. If GPC persists, may need for dialysis catheter to be removed. Echo pending to rule out endocarditis.
[2025-04-28] MEDS: ATORVASTATIN CALCIUM 20 MG TABLET 80 MG PO (08:59)
[2025-04-28] MEDS: SODIUM BICARBONATE 650 MG TABLET 325 MG PO (08:59)
[2025-04-28] MEDS: PANTOPRAZOLE 20 MG TABLET PO (09:00)
[2025-04-28] MEDS: VANCOMYCIN/NS 500 MG IVPB 100 ML 120 MG IV (09:02)
[2025-04-28] MEDS: APIXABAN 2.5 MG TABLET PO (09:02)
[2025-04-28] MEDS: AZITHROMYCIN INJ 250 MG, Sterile Water 2.5 ML in SODIUM CHLORIDE 0.9% 250 ML 250 ML 252.5 MG IV (09:02)
[2025-04-28] MEDS: ASPIRIN EC 81 MG TABEC PO (09:02)
[2025-04-28] MEDS: INSULIN LISPRO (AdmeLOG) 1 UNIT/0.01 ML UNIT SC ×2 (11:39→16:42)
--- NOTE | 2025-04-28 12:08 | PC.SS ---
Addendum entered by MANNY Mukherjee 04/28/25 15:05: Rounding note: blood culture pending, on iv antibiotics. Original Note: Patient is a 59 year old male presenting to the hospital for acute febrile illness. MANAGER PHP met with patient and patient brother at bedside. MANAGER PHP explained role and reason for visit. Patient gave consent for guest to remain in the room. Patient confirmed demographic information and stated he lives with his brother. Patient stated that in case he is unable to make medical decisions on his own he would like his brother Tin Werner to make them PH: [phone]. Patient stated that is is currently unemployed, does not use DME, PCP is Dr. Acevedo at [facility], last visit was on February 21 2025. Patient stated that he is also seen by Dr. Venegas for dialysis, chair time on Tuesday, , and Tuesday at 10:00AM. Patient stated that his pharmacy is [facility] and [facility] pharmacy. Patient stated that once medically clear he would like to return home and his brother will provide transportation. PCP: Dr. Acevedo Decision maker: Tin Werner PH: [phone] D/c: home
--- NOTE | 2025-04-28 13:40 | ESPR_ITS ---
Documentation for date of: 04/28/25 Subjective Subjective Interval history: Mr. Ny is a 59-year-old gentleman with a longstanding history of diabetes, hypertension, dyslipidemia, end-stage renal disease on dialysis, congestive heart failure presented to the emergency department with fevers and chills. Patient recently was started on dialysis via right IJ PermCath. ED course: WBC 15.3, hemoglobin 8.9, platelets 165, sodium 138, potassium 3.7, BUN 45, creatinine 4.7, lactic acid 2, phosphorus 4.1, calcium 8.6, LFTs normal, Pro-Vineet 32.2, urinalysis shows no bacteria, urine tox screen normal, chest x-ray showed early pneumonia. Patient was started on antibiotics in the ED and a nephrology consultation was requested and lieu for dialysis. 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 Patient denies any chest pain, shortness of breath. WBC 11.7, hemoglobin 8.6, platelets 118. Creatinine 4.2. Did receive dialysis yesterday. Phosphorus 4.2. Repeat blood cultures negative. Will plan for removal of dialysis catheter tomorrow due to persistent fevers Review of Systems Review of Systems Narrative Review of Systems: CONSTITUTIONAL: Patient complaining of fever, chills HEENT: Denies any visual disturbances or hearing problems. CARDIOVASCULAR: Patient denies any chest pain, shortness of breath, swelling in the lower extremities. PULMONARY: Patient denies any shortness of breath, cough. GASTROINTESTINAL: Patient denies any abdominal pain, constipation, nausea, vomiting, diarrhea. GENITOURINARY: Patient denies any urinary symptoms of burning or frequency or hematuria, denies any form in the urine. SKIN: Denies any rash. MUSCULOSKELETAL: Denies any muscular skeletal problems of joint pains. NEUROLOGICAL: Denies any neurological problems of strokes, seizures or confusion. Denies any memory problems. PSYCHIATRIC: Denies any depression or anxiety. LYMPHATICS : No lymphadenopathy Exam Vital Signs Temp Pulse Resp BP Pulse Ox O2 Del Method O2 Flow Rate 36.8 C 81 16 129/74 99 Room Air 4 04/28/25 12:04/28/25 12:04/28/25 12:04/28/25 12:04/28/25 12:04/28/25 12:04/28/25 08:00 Narrative Exam GENERAL APPEARANCE: Patient currently seen in medical floor HEENT: EOMI, PERRLA NECK: Neck supple, no JVD or bruit CARDIOVASCULAR: Heart regular, no murmurs LUNGS/CHEST: Chest clear to auscultation. No rales, rhonchi, wheezing ABDOMEN: Soft, nontender, nondistended. No masses. Normal bowel sounds. EXTREMITIES: No edema, clubbing or cyanosis. SKIN: Skin exam normal without any rashes. Right IJ dialysis catheter MUSCULOSKELETAL: Musculoskeletal exam normal PSYCHIATRIC: Normal mood, affect LYMPHATICS: No lymphadenopathy noted NEUROLOGICAL : No neurological deficits Objective Labs 04/28/25 05:57 04/28/25 05:57 Labs: Laboratory Results - last 24 hr 04/28/25 05:57 WBC 11.7 H D RBC 2.94 L Hgb 8.6 L Hct 27.0 L MCV 92 MCH 29.3 MCHC 31.9 RDW Std Deviation 46.8 H Plt Count 118 L Neut % (Auto) 92 H Lymph % (Auto) 3 L [place] % (Auto) 4 Eos % (Auto) 0 Baso % (Auto) 0 Neut # (Auto) 10.8 H Lymph # (Auto) 0.3 L [place] # (Auto) 0.4 Eos # (Auto) 0.0 Baso # (Auto) 0.1 Immature Gran # (Auto) 0.08 H Absolute Nucleated RBC 0.00 Immature Gran % 1 H Nucleated RBC % 0 Sodium 136 Potassium 4.1 D Chloride 100 Carbon Dioxide 26.6 Anion Gap 9 BUN 51 H Creatinine 4.2 H* D Estim Creat Clear Calc 21.5 L eGFR 15 L BUN/Creatinine Ratio 12 Glucose 151 H Calculated Osmolality 288 Calcium 8.4 Corrected Calcium 8.7 Phosphorus 4.2 Albumin 3.6 Random Vancomycin 13.7 Assessment & Plan Assessment and plan (1) ESRD needing dialysis: Status: Acute Assessment and plan: ESRD secondary to hypertensive/diabetic nephropathy. Did receive dialysis yesterday. Will plan for removal of dialysis catheter tomorrow-catheter free for 48 hours and reinsert dialysis catheter on Tuesday. (2) Pneumonia: Status: Acute Assessment and plan: On antibiotics (3) Sepsis: Status: Acute Assessment and plan: Patient noted to have gram-positive cocci-staph. Probably catheter related bacteremia versus pneumonia. If persistent fevers and elevated white count noted-Will DC dialysis catheter on Tuesday. (4) Diabetes: Status: Acute Assessment and plan: Accu-Cheks, sliding scale (5) HTN (hypertension), benign: Status: Acute Assessment and plan: On hydralazine, metoprolol, valsartan at home. (6) Hyperlipidemia: Status: Acute Assessment and plan: On statin (7) Fever: Status: Acute Assessment and plan: Probably catheter related bacteremia. Ibuprofen given. Additional Assessment & Plan Additional Plan: Plan of care discussed primary team. Thank you Summer for allowing me to participate in the care of Mr. Ny
[2025-04-29] VITALS (12 sets, daily range): BP systolic 129–147; BP diastolic 75–88; PULSE 70–92; RESP 16–97; TEMP 36.1–37.1; O2SAT 90–100
[2025-04-29 06:10] LABS: Basophils # (Auto) 0.0 Thou/mm3 (0.0-0.2); Basophils % (Auto) 1 % (0-2.5); Eosinophils # (Auto) 0.1 Thou/mm3 (0.0-0.5); Eosinophils % (Auto) 2 % (0-10); Hematocrit 26.8 % (41.0-53.0); Immature Granulocytes Auto 0.03 Thou/mm3 (0.00-0.00); Lymphocytes # (Auto) 0.3 Thou/mm3 (1.0-4.8); Lymphocytes % (Auto) 5 % (10-50); Mean Corpuscular HGB Conc 31.7 g/dl (31.0-37.0); Mean Corpuscular Hemoglobin 29.5 pg (25.0-35.0); Mean Corpuscular Volume 93 fL (80-100); Monocytes # (Auto) 0.3 Thou/mm3 (0.0-0.8); Monocytes % (Auto) 4 % (0-12); Neutrophils # (Auto) 5.4 Thou/mm3 (1.8-7.7); Neutrophils % (Auto) 88 % (37-80); Nucleated Red Blood Cell # 0.00 Thou/mm3 (0.00-0.00); Nucleated Red Blood Cell % 0 /100 WBC (0); Platelet Count 121 Thou/mm3 (140-440); RDW Standard Deviation 47.6 fL (35.1-43.9); Red Blood Count 2.88 Miln/mm3 (4.50-5.90); White Blood Count 6.1 Thou/mm3 (3.8-10.6)
[2025-04-29 06:21] LABS: Hemoglobin 8.5 g/dL (13.5-16.0)
[2025-04-29 06:24] LABS: Albumin, Serum 3.4 gm/dL (3.5-5.0); Anion Gap 10 (7-16); BUN/Creatinine Ratio 12 Ratio (12-20); Blood Urea Nitrogen 63 mg/dL (9-23); Calcium 8.7 mg/dL (8.3-10.6); Calcium (Corrected) 9.2 mg/dL (8.5-10.1); Carbon Dioxide 26.9 mMol/L (20.0-31.0); Chloride 102 mMol/L (98-107); Creatinine (Component) 5.2 mg/dL (0.6-1.3); Estimated Creatinine Clearance 17.3 mL/min (>60); Glucose 208 mg/dL (74-106); Osmolality,Calculated 301 (275-295); Phosphorous 4.5 mg/dL (2.4-5.1); Potassium 4.3 mMol/L (3.4-5.1); Sodium 139 mMol/L (136-145); Vancomycin,Random 15.0 mcg/mL; eGFR 12 See Note
[2025-04-29] MEDS: INSULIN LISPRO (AdmeLOG) 1 UNIT/0.01 ML UNIT SC ×3 (07:31→17:15)
[2025-04-29] MEDS: cefTRIAXone/D5w 2gm 2 GM/50 ML BAG IV (08:53)
[2025-04-29] MEDS: METOPROLOL SUCCINATE XL 25 MG TABCR 50 MG PO (08:53)
[2025-04-29] MEDS: ATORVASTATIN CALCIUM 20 MG TABLET 80 MG PO (08:53)
[2025-04-29] MEDS: PANTOPRAZOLE 20 MG TABLET PO (08:54)
--- NOTE | 2025-04-29 09:07 | ESPR_ITS ---
Documentation for date of: 04/29/25 Subjective Subjective Interval history: History of Present Illness: 59yM with PMH of HFrEF EEF30% 2019, DVT on ELIQUIS, IDDM, HTN, HLD, anemia, CKD newly on HD TTS with Dr. Venegas, presented to the hospital on 04/26/2025) due to rigors, chills, and fever of 103 F at home. It lasted throughout the day which made him to come to ED. Patient?s last hemodialysis was on . Patient has been admitted for Acute hypoxic respiratory failure. Nephrology has been consulted for management of ESRD on HD TTS. ED course: WBC 15.3, hemoglobin 8.9, platelets 165, sodium 138, potassium 3.7, BUN 45, creatinine 4.7, lactic acid 2, phosphorus 4.1, calcium 8.6, LFTs normal, Pro-Vineet 32.2, urinalysis shows no bacteria, urine tox screen normal, chest x-ray showed early pneumonia. Patient was started on antibiotics in the ED and a nephrology consultation was requested and lieu for dialysis. 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 Patient denies any chest pain, shortness of breath. WBC 11.7, hemoglobin 8.6, platelets 118. Creatinine 4.2. Did receive dialysis yesterday. Phosphorus 4.2. Repeat blood cultures negative. Will plan for removal of dialysis catheter tomorrow due to persistent fevers 04/29/2025: Labs reviewed and patient examined at the bedside. BUN:63, Cr:5.2, eGFR:12. Patient currently undergoing Ceftriaxone treatment for 2 weeks. Will hold cathether removal. Will contine to monitor. Exam Vital Signs Temp Pulse Resp BP Pulse Ox O2 Del Method O2 Flow Rate 97.7 F 78 18 139/82 H 99 Room Air 4 04/29/25 08:00 04/29/25 08:53 04/29/25 08:00 04/29/25 08:53 04/29/25 08:00 04/29/25 08:00 04/29/25 02:30 Narrative Exam General: No acute distress, well nourished, AAO x3 Eye: PERRL, EOMI, normal conjunctiva, no scleral icterus HENT: Normocephalic, atraumatic, hearing intact to conversation at normal volume, moist oral mucosa Neck: Supple, non-tender, no JVD, no lymphadenopathy Lungs: Non-labored respirations, symmetric chest rise, Clear to auscultate bilaterally, No wheezing, rhonchi, crackles Heart: Peripheral pulses intact bilaterally, Regular Rate and Rhythm. Abdomen: Soft, non-tender, non-distended, no palpable masses Musculoskeletal: Normal range of motion and strength, No cyanosis or edema, No visible joint swelling Skin: Skin is warm, dry, no rashes or lesions. Right IJ cathether Psychiatric: Cooperative, appropriate mood and affect, Awake and alert, not agitated Neuro: Cranial nerves II-XII grossly intact. Sensations intact to light touch. Objective Labs 04/30/25 05:08 04/30/25 05:08 Labs: Laboratory Results - last 24 hr 04/29/25 05:25 WBC 6.1 D RBC 2.88 L Hgb 8.5 L Hct 26.8 L MCV 93 MCH 29.5 MCHC 31.7 RDW Std Deviation 47.6 H Plt Count 121 L Neut % (Auto) 88 H Lymph % (Auto) 5 L [place] % (Auto) 4 Eos % (Auto) 2 Baso % (Auto) 1 Neut # (Auto) 5.4 Lymph # (Auto) 0.3 L [place] # (Auto) 0.3 Eos # (Auto) 0.1 Baso # (Auto) 0.0 Immature Gran # (Auto) 0.03 H Absolute Nucleated RBC 0.00 Immature Gran % 1 H Nucleated RBC % 0 Sodium 139 Potassium 4.3 Chloride 102 Carbon Dioxide 26.9 Anion Gap 10 BUN 63 H Creatinine 5.2 H* D Estim Creat Clear Calc 17.3 L eGFR 12 L* BUN/Creatinine Ratio 12 Glucose 208 H D Calculated Osmolality 301 H Calcium 8.7 Corrected Calcium 9.2 Phosphorus 4.5 Albumin 3.4 L Random Vancomycin 15.0 Quality Measures Quality Measures sepsis Current suspected stage: sepsis Possible source: pulmonary Blood cultures ordered: yes Antibiotic ordered: Yes Assessment & Plan Assessment Current Active Medications: Generic Name Dose Route Start Last Admin Trade Name Freq PRN Reason Stop Dose Admin Acetaminophen 650 mg 04/28/25 13:13 Acetaminophen 325 Mg Tablet PO 05/27/25 03:48 Q6H PRN Fever >101 Apixaban 2.5 mg 04/27/25 09:00 04/28/25 09:02 Apixaban 2.5 Mg Tablet PO 05/18/25 08:59 2.5 mg On Hold: 04/28/25 19:10 BID CHARLES Administration Aspirin 81 mg 04/27/25 09:00 04/28/25 09:02 Aspirin Ec 81 Mg Tabec PO 05/27/25 08:59 81 mg On Hold: 04/28/25 19:10 QDAY CHARLES Administration Atorvastatin Calcium 80 mg 04/27/25 09:00 04/29/25 08:53 Atorvastatin Calcium 20 Mg Tablet PO 05/27/25 08:59 80 mg QDAY CHARLES Administration Dextrose 25 ml 04/27/25 04:14 Dextrose 50%-Water Inj 50 Ml Syringe IV 05/27/25 04:13 Q15MIN PRN BG 50-70 responsive npo pt Dextrose 50 ml 04/27/25 04:14 Dextrose 50%-Water Inj 50 Ml Syringe IV 05/27/25 04:13 Q15MIN PRN BG <50 OR BG <70 & pt unresponsive Glucagon 1 mg 04/27/25 04:14 Glucagon Inj 1 Mg Vial IM Q15MIN PRN BG <70, and no IV access Heparin Sodium (Porcine) 4,100 unit 04/27/25 12:11 04/27/25 12:37 Heparin Sod Inj 1000 Unit/Ml Vial 10 Ml INDWELLCAT 05/11/25 12:10 4,100 unit PRN PRN Administration DIALYSIS Azithromycin 250 mg/ Sterile 252.5 mls @ 252.5 mls/hr 04/28/25 09:00 04/28/25 09:02 Water 2.5 ml/ Sodium Chloride IV 05/05/25 08:59 252.5 mls/hr QDAY CHARLES Administration Albumin Human 25 gm in 100 mls @ 100 mls/hr 04/27/25 08:48 Albuminex 25% Ivpb IV PRN PRN DIALYSIS Ceftriaxone Sodium/Dextrose 2 gm in 50 mls @ 100 mls/hr 04/29/25 08:13 04/29/25 08:53 Rocephin/D5w 2gm IV 05/06/25 08:12 100 mls/hr QDAY CHARLES Administration Ibuprofen 600 mg 04/27/25 10:50 04/28/25 07:12 Ibuprofen Tab 600 Mg Tablet PO 05/27/25 10:49 600 mg Q6HR PRN Administration PAIN OR FEVER > 101 Protocol Insulin Human Lispro 0 unit 04/27/25 07:30 04/29/25 07:31 Insulin Lispro (Admelog) 1 Unit/0.01 Ml Unit SC 05/27/25 07:29 1 unit AC CHARLES Administration Protocol Lactulose 20 gm 04/27/25 03:49 Lactulose Syrup 20 Gm/30 Ml Udc PO 05/27/25 08:59 QDAY PRN Constipation Protocol Metoprolol Succinate 50 mg 04/29/25 09:00 04/29/25 08:53 Metoprolol Succinate Xl 25 Mg Tabcr PO 05/29/25 08:59 50 mg QDAY CHARLES Administration Pantoprazole Sodium 20 mg 04/27/25 09:00 04/29/25 08:54 Pantoprazole 20 Mg Tablet PO 05/27/25 08:59 20 mg DAILY CHARLES Administration Plan 59yM with PMH of HFrEF EEF30% 2019, DVT on ELIQUIS, IDDM, HTN, HLD, anemia, CKD newly on HD TTS with Dr. Venegas, presented to the hospital on 04/26/2025) due to rigors, chills, and fever of 103 F at home. It lasted throughout the day which made him to come to ED. Patient?s last hemodialysis was on . Patient has been admitted for Acute hypoxic respiratory failure. Nephrology has been consulted for management of ESRD on HD TTS. #ESRD on hemodialysis (//Tue) -On admission: BUN:55, Cr: 4.9, eGFR:13 -The patient received hemodialysis 04/27. -No signs of volume overload on exam. On room air satting well. -CXR (04/26/2025): Early pneumonia at the lung bases, Mild enlargement cardiac contour with prominent vascular congestion, Right internal jugular dialysis catheter satisfactory position -Hemodialysis sessions: 04/27 Plan: -Monitor renal function -Maintain fluid restriction, avoid nephrotoxic agents when possible, renally dose medications -Strict i and o -Hemodialysis per schedule. #Acute Febrile Illness #possible CLABSI #AHRF in setting of #PNA, likely GNR #IDDM Anemia of chronic disease HFrEF with EEF 30% in 2019 HTN HLD UE DVT, likely unprovoked BPH -Management per Primary Hospitalist team Thank you for allowing us to participate in the care of your patient. Assessment and plan discussed with my attending physician Dr. Rubi Jones (PGY-1)- Internal medicine resident Attending Provider Attestation/Addendum Patient seen and examined with resident physician Dr. Jones. Note reviewed, agree with findings and recommendations. ESRD needing dialysis: Status: Acute Assessment and plan: ESRD secondary to hypertensive/diabetic nephropathy. Did receive dialysis Tuesday. Blood cultures came back positive for MSSA. Will try to salvage the catheter. Repeat blood culture seems to be negative. Will need 2 weeks of Rocephin. Hold dialysis catheter removal. Patient afebrile. White count normal. Spoke to primary team. Dialysis scheduled for tomorrow
[2025-04-29 09:23] LABS: INR 1.0 (0.9-1.3); Partial Thromboplastin Time 29.3 Seconds (22.0-36.0); Prothrombin Time 10.2 Seconds (9.0-12.2)
--- NOTE | 2025-04-29 10:50 | PC.NURSE ---
consulted Dr. Venegas regarding order for removal of dialysis catheter, patient in caht lab ready for procedure but order for procedure noticed to be cancelled, patient wanted to know why procedure cancelled, Dr. Venegas called and explained that no need to remove catheter at this time, we will treat infection with antibiotics. Patient taken back to room 376 with tele box. NO PROCEDURE COMPLETED IN IR TODAY.
[2025-04-29] MEDS: AZITHROMYCIN INJ 250 MG, Sterile Water 2.5 ML in SODIUM CHLORIDE 0.9% 250 ML 250 ML 252.5 MG IV (11:17)
--- NOTE | 2025-04-29 15:21 | PD.RESPRO ---
Documentation for date of: 04/29/25 Subjective Subjective Interval history: Patient examined at bedside. No events overnight, no major complaints. Vitals are stable, leukocytosis downtrending 6.1, GFR 63, Cr 5.2. Started IV ceftriaxone 2g daily for MSSA bacteremia. Repeat blood cultures are pending. Keep current dialysis catheter in place per nephrology. No fevers reported in past 24 hrs. Echo showed EF 40%, no valvular defects, ruled out endocarditis. Plan for HD session tomorrow. Exam Vital Signs Temp Pulse Resp BP Pulse Ox O2 Del Method O2 Flow Rate 97.4 F 90 18 129/75 90 L Nasal Cannula 4 04/29/25 11:55 04/29/25 12:00 04/29/25 11:55 04/29/25 11:55 04/29/25 11:55 04/29/25 09:53 04/29/25 09:53 Narrative Exam General: No acute distress, well nourished, AAO x3 Eye: PERRL, EOMI, normal conjunctiva, no scleral icterus HENT: Normocephalic, atraumatic, hearing intact to conversation at normal volume, moist oral mucosa Neck: Supple, non-tender, no JVD, no lymphadenopathy Lungs: Non-labored respirations, symmetric chest rise, Clear to auscultate bilaterally, No wheezing, rhonchi, crackles Heart: Peripheral pulses intact bilaterally, Regular Rate and Rhythm. Abdomen: Soft, non-tender, non-distended, no palpable masses Musculoskeletal: Normal range of motion and strength, No cyanosis or edema, No visible joint swelling Skin: Skin is warm, dry, no rashes or lesions. Right IJ cathether Psychiatric: Cooperative, appropriate mood and affect, Awake and alert, not agitated Neuro: Cranial nerves II-XII grossly intact. Sensations intact to light touch. Objective Labs 04/30/25 05:08 04/30/25 05:08 Labs: Laboratory Results - last 24 hr 04/29/25 04/29/25 05:15 05:25 WBC 6.1 D RBC 2.88 L Hgb 8.5 L Hct 26.8 L MCV 93 MCH 29.5 MCHC 31.7 RDW Std Deviation 47.6 H Plt Count 121 L Neut % (Auto) 88 H Lymph % (Auto) 5 L [place] % (Auto) 4 Eos % (Auto) 2 Baso % (Auto) 1 Neut # (Auto) 5.4 Lymph # (Auto) 0.3 L [place] # (Auto) 0.3 Eos # (Auto) 0.1 Baso # (Auto) 0.0 Immature Gran # (Auto) 0.03 H Absolute Nucleated RBC 0.00 Immature Gran % 1 H Nucleated RBC % 0 PT 10.2 INR 1.0 APTT 29.3 Sodium 139 Potassium 4.3 Chloride 102 Carbon Dioxide 26.9 Anion Gap 10 BUN 63 H Creatinine 5.2 H* D Estim Creat Clear Calc 17.3 L eGFR 12 L* BUN/Creatinine Ratio 12 Glucose 208 H D Calculated Osmolality 301 H Calcium 8.7 Corrected Calcium 9.2 Phosphorus 4.5 Albumin 3.4 L Random Vancomycin 15.0 Quality Measures Quality Measures sepsis Current suspected stage: sepsis Possible source: pulmonary Blood cultures ordered: yes Antibiotic ordered: Yes Assessment & Plan Assessment Current Active Medications: Generic Name Dose Route Start Last Admin Trade Name Freq PRN Reason Stop Dose Admin Acetaminophen 650 mg 04/28/25 13:13 Acetaminophen 325 Mg Tablet PO 05/27/25 03:48 Q6H PRN Fever >101 Atorvastatin Calcium 80 mg 04/27/25 09:00 04/29/25 08:53 Atorvastatin Calcium 20 Mg Tablet PO 05/27/25 08:59 80 mg QDAY CHARLES Administration Dextrose 25 ml 04/27/25 04:14 Dextrose 50%-Water Inj 50 Ml Syringe IV 05/27/25 04:13 Q15MIN PRN BG 50-70 responsive npo pt Dextrose 50 ml 04/27/25 04:14 Dextrose 50%-Water Inj 50 Ml Syringe IV 05/27/25 04:13 Q15MIN PRN BG <50 OR BG <70 & pt unresponsive Glucagon 1 mg 04/27/25 04:14 Glucagon Inj 1 Mg Vial IM Q15MIN PRN BG <70, and no IV access Heparin Sodium (Porcine) 4,100 unit 04/27/25 12:11 04/27/25 12:37 Heparin Sod Inj 1000 Unit/Ml Vial 10 Ml INDWELLCAT 05/11/25 12:10 4,100 unit PRN PRN Administration DIALYSIS Azithromycin 250 mg/ Sterile 252.5 mls @ 252.5 mls/hr 04/28/25 09:00 04/29/25 11:17 Water 2.5 ml/ Sodium Chloride IV 05/05/25 08:59 252.5 mls/hr QDAY CHARLES Administration Albumin Human 25 gm in 100 mls @ 100 mls/hr 04/27/25 08:48 Albuminex 25% Ivpb IV PRN PRN DIALYSIS Ceftriaxone Sodium/Dextrose 2 gm in 50 mls @ 100 mls/hr 04/29/25 08:13 04/29/25 08:53 Rocephin/D5w 2gm IV 05/06/25 08:12 100 mls/hr QDAY CHARLES Administration Ibuprofen 600 mg 04/27/25 10:50 04/28/25 07:12 Ibuprofen Tab 600 Mg Tablet PO 05/27/25 10:49 600 mg Q6HR PRN Administration PAIN OR FEVER > 101 Protocol Insulin Human Lispro 0 unit 04/27/25 07:30 04/29/25 11:16 Insulin Lispro (Admelog) 1 Unit/0.01 Ml Unit SC 05/27/25 07:29 2 unit AC CHARLES Administration Protocol Lactulose 20 gm 04/27/25 03:49 Lactulose Syrup 20 Gm/30 Ml Udc PO 05/27/25 08:59 QDAY PRN Constipation Protocol Metoprolol Succinate 50 mg 04/29/25 09:00 04/29/25 08:53 Metoprolol Succinate Xl 25 Mg Tabcr PO 05/29/25 08:59 50 mg QDAY CHARLES Administration Pantoprazole Sodium 20 mg 04/27/25 09:00 04/29/25 08:54 Pantoprazole 20 Mg Tablet PO 05/27/25 08:59 20 mg DAILY CHARLES Administration Plan This is a 59-year-old male with PMHx of HFrEF EEF30% 2019, DVT on ELIQUIS, IDDM, HTN, HLD, anemia, CKD newly on HD TTS with Dr. Venegas, presenting to the ED with CC of rigors and fever of 103. Admitted for AHRF in setting of PNA. #MSSA bacteremia #AHRF2/2 #CAP Present with fever and rigors on the morning of admission. Met 3/4 SIRS criteria with fever 103, tachycardia 105 and WBC 15.3. No signs of EOD and normal LA, unlikely septic. He was found taschypnic and desatting to low 90s on room air. CXR showed PNA and has mild coarse breath sounds on exam. Received 1.0L NS in ED. Given his continued spiking fevers and GPC found on blood culture, central line infection favored. ? Continue IV ceftriaxone 2g daily -Nephrology consulted, appreciate recommendations--keep HD line and resume regular dialysis sessions ? Continue TYLENOL for fever ? Oxygen PRN - Repeat blood cx pending. #ESRD on HD TTS Newely to HD since eir this month. Completed last session on thru tunneled cath which appear to be intact without erythema, pain with manipulation, or crepitus. Depsite these findings, still considering CLABSI given the serverity of his constitutional symptoms. Renal function near baseline. No signs of volume overload on exam. ? Continue inpatient HD TTS ? Continue home CALCITRIOL 0.25 mcg #IDDM A1c 6.6 from earlier this month, admission glucose 165. He has a history of hypoglycemia on previous admission. Glucose continues to be stable. ? Insulin sliding scale ? Accuchecks #Anemia of chronic disease Stable. Hgb 8.9 and around baseline. No signs or symptoms of abnormal bleed. ? Transfuse if Hgb < 8.0 ? Daily labs #HFrEF with EF 40% Echo from 2018 was EF 30%. No signs of fluid overload, does not appear in CHF exacerbation. Not on full GDMT. Echo 04/29--EF 40%, no valvular defects, ruled out endocarditis. ? Continue home ASA 81 mg daily ? home METOPROLOL 50 mg XL started ? Work towards full GDMT as tolerated #HTN #HLD Chronic problems. Last lipid panel from earlier this month with TG 67 and LDL 57. BP currently soft 103/58, HR 92. ? Continue home ATORVASTATIN 80 mg ? Consider resuming home antihypertensives when able UE DVT, likely unprovoked History of DVT of upper extremity, likely unprovoked. Previously on XARALTO which was switched to ELIQUIS on last admission and appropriately given ESRD. ? Continue home ELIQUIS 2.5 mg BID BPH ? Consider resume home TAMSOLUSIN 0.4 mg when able Health Maintenance: DVT prophylaxis: eliquis Diet: renal diet [place]: No Lines: PIV, tunneled dialysis catheter, right side CODE STATUS: Full code Disposition: repeat blood cultures for MSSA bacteremia Patient's plan and care discussed with my attending, Dr. Chuy Willams PGY2 Attending Provider Attestation/Addendum I, Summer Vera DO, attest that I was physically present for the atkins portions of the service and evaluated the patient with the resident and I reviewed and discussed the case with the resident and agree with the resident's findings and plans of care as documented above Patient seen and evaluated this AM. Patient states that he is feeling well. Afebrile overnight. Will repeat bcx as last blood culture was positive 1/2 for GPC to ensure clearance of infection and determine start date of 2 week abx treatment. Case discussed with nephrology, can do abx outpatient after each dialysis session. Anticipate DC within next 48h if repeat cultures are negative. Patient has no active complaints otherwise.
[2025-04-30] VITALS (24 sets, daily range): BP systolic 124–166; BP diastolic 54–98; PULSE 64–90; RESP 16–93; TEMP 36.1–37.1; O2SAT 94–98; BMI 30.8
[2025-04-30 05:35] LABS: Basophils # (Auto) 0.1 Thou/mm3 (0.0-0.2); Basophils % (Auto) 1 % (0-2.5); Eosinophils # (Auto) 0.2 Thou/mm3 (0.0-0.5); Eosinophils % (Auto) 3 % (0-10); Hematocrit 26.3 % (41.0-53.0); Immature Granulocytes Auto 0.05 Thou/mm3 (0.00-0.00); Lymphocytes # (Auto) 0.7 Thou/mm3 (1.0-4.8); Mean Corpuscular HGB Conc 32.3 g/dl (31.0-37.0); Mean Corpuscular Hemoglobin 29.2 pg (25.0-35.0); Mean Corpuscular Volume 90 fL (80-100); Monocytes # (Auto) 0.5 Thou/mm3 (0.0-0.8); Monocytes % (Auto) 9 % (0-12); Neutrophils # (Auto) 3.9 Thou/mm3 (1.8-7.7); Neutrophils % (Auto) 73 % (37-80); Nucleated Red Blood Cell # 0.00 Thou/mm3 (0.00-0.00); Nucleated Red Blood Cell % 0 /100 WBC (0); Platelet Count 143 Thou/mm3 (140-440); RDW Standard Deviation 45.5 fL (35.1-43.9); Red Blood Count 2.91 Miln/mm3 (4.50-5.90); White Blood Count 5.3 Thou/mm3 (3.8-10.6)
[2025-04-30 06:01] LABS: Hemoglobin 8.5 g/dL (13.5-16.0)
[2025-04-30 06:16] LABS: Alanine Aminotransferase 41 U/L (10-49); Albumin, Serum 3.4 gm/dL (3.5-5.0); Albumin/Globulin Ratio 1.6 (1.2-2.2); Alkaline Phosphatase 156 U/L (46-116); Anion Gap 11 (7-16); Aspartate Amino Transferase 35 U/L (0-34); BUN/Creatinine Ratio 12 Ratio (12-20); Bilirubin,Total 0.6 mg/dL (0.3-1.2); Blood Urea Nitrogen 59 mg/dL (9-23); Calcium 8.6 mg/dL (8.3-10.6); Calcium (Corrected) 9.1 mg/dL (8.5-10.1); Carbon Dioxide 23.6 mMol/L (20.0-31.0); Chloride 104 mMol/L (98-107); Creatinine (Component) 5.1 mg/dL (0.6-1.3); Estimated Creatinine Clearance 17.7 mL/min (>60); Globulin 2.1 gm/dL (2.3-3.5); Glucose 227 mg/dL (74-106); Osmolality,Calculated 301 (275-295); Potassium 4.4 mMol/L (3.4-5.1); Sodium 139 mMol/L (136-145); Total Protein 5.5 gm/dL (5.7-8.2); eGFR 12 See Note
[2025-04-30] MEDS: INSULIN LISPRO (AdmeLOG) 1 UNIT/0.01 ML UNIT SC ×4 (07:25→23:06)
--- NOTE | 2025-04-30 08:23 | ESPR_ITS ---
Documentation for date of: 04/30/25 Subjective Subjective Interval history: History of Present Illness: 59yM with PMH of HFrEF EEF30% 2019, DVT on ELIQUIS, IDDM, HTN, HLD, anemia, CKD newly on HD TTS with Dr. Venegas, presented to the hospital on 04/26/2025) due to rigors, chills, and fever of 103 F at home. It lasted throughout the day which made him to come to ED. Patient?s last hemodialysis was on . Patient has been admitted for Acute hypoxic respiratory failure. Nephrology has been consulted for management of ESRD on HD TTS. ED course: WBC 15.3, hemoglobin 8.9, platelets 165, sodium 138, potassium 3.7, BUN 45, creatinine 4.7, lactic acid 2, phosphorus 4.1, calcium 8.6, LFTs normal, Pro-Vineet 32.2, urinalysis shows no bacteria, urine tox screen normal, chest x-ray showed early pneumonia. Patient was started on antibiotics in the ED and a nephrology consultation was requested and lieu for dialysis. 04/28/2025: patient resting comfortably.sleeve machine tender the temp was 39.1. Patient denies any chest pain, shortness of breath. WBC 11.7, hemoglobin 8.6, platelets 118. Creatinine 4.2. Did receive dialysis yesterday. Phosphorus 4.2. Repeat blood cultures negative. Will plan for removal of dialysis catheter tomorrow due to persistent fevers 04/29/2025: Labs reviewed and patient examined at the bedside. BUN:63, Cr:5.2, eGFR:12. Patient currently undergoing Ceftriaxone treatment for 2 weeks. Will hold cathether removal. Will contine to monitor. 04/30/2025: Labs reviewed and patient examined at the bedside. BUN:59, Cr: 5.1, eGFR:12. Patient will receive hemodialysis today. Will work towards 2 weeks of antibiotic treatment. Exam Vital Signs Temp Pulse Resp BP Pulse Ox O2 Del Method O2 Flow Rate 98.7 F 74 18 149/83 H 94 L Room Air 4 04/30/25 07:57 04/30/25 08:15 04/30/25 07:57 04/30/25 08:15 04/30/25 07:57 04/30/25 07:46 04/29/25 09:53 Narrative Exam General: No acute distress, well nourished, AAO x3 Eye: PERRL, EOMI, normal conjunctiva, no scleral icterus HENT: Normocephalic, atraumatic, hearing intact to conversation at normal volume, moist oral mucosa Neck: Supple, non-tender, no JVD, no lymphadenopathy Lungs: Non-labored respirations, symmetric chest rise, Clear to auscultate bilaterally, No wheezing, rhonchi, crackles Heart: Peripheral pulses intact bilaterally, Regular Rate and Rhythm. Abdomen: Soft, non-tender, non-distended, no palpable masses Musculoskeletal: Normal range of motion and strength, No cyanosis or edema, No visible joint swelling Skin: Skin is warm, dry, no rashes or lesions. Right IJ cathether Psychiatric: Cooperative, appropriate mood and affect, Awake and alert, not agitated Neuro: Cranial nerves II-XII grossly intact. Sensations intact to light touch. Objective Labs 04/30/25 05:08 04/30/25 05:08 Labs: Laboratory Results - last 24 hr 04/29/25 04/30/25 05:15 05:08 WBC 5.3 RBC 2.91 L Hgb 8.5 L Hct 26.3 L MCV 90 MCH 29.2 MCHC 32.3 RDW Std Deviation 45.5 H Plt Count 143 Neut % (Auto) 73 Lymph % (Auto) 13 [place] % (Auto) 9 Eos % (Auto) 3 Baso % (Auto) 1 Neut # (Auto) 3.9 Lymph # (Auto) 0.7 L [place] # (Auto) 0.5 Eos # (Auto) 0.2 Baso # (Auto) 0.1 Immature Gran # (Auto) 0.05 H Absolute Nucleated RBC 0.00 Immature Gran % 1 H Nucleated RBC % 0 PT 10.2 INR 1.0 APTT 29.3 Sodium 139 Potassium 4.4 Chloride 104 Carbon Dioxide 23.6 Anion Gap 11 BUN 59 H Creatinine 5.1 H* Estim Creat Clear Calc 17.7 L eGFR 12 L* BUN/Creatinine Ratio 12 Glucose 227 H Calculated Osmolality 301 H Calcium 8.6 Corrected Calcium 9.1 Total Bilirubin 0.6 AST 35 H ALT 41 Alkaline Phosphatase 156 H Total Protein 5.5 L Albumin 3.4 L Globulin 2.1 L Albumin/Globulin Ratio 1.6 Quality Measures Quality Measures sepsis Current suspected stage: sepsis Possible source: pulmonary Blood cultures ordered: yes Antibiotic ordered: Yes Assessment & Plan Assessment Current Active Medications: Generic Name Dose Route Start Last Admin Trade Name Freq PRN Reason Stop Dose Admin Acetaminophen 650 mg 04/28/25 13:13 Acetaminophen 325 Mg Tablet PO 05/27/25 03:48 Q6H PRN Fever >101 Atorvastatin Calcium 80 mg 04/27/25 09:00 04/29/25 08:53 Atorvastatin Calcium 20 Mg Tablet PO 05/27/25 08:59 80 mg QDAY CHARLES Administration Dextrose 25 ml 04/27/25 04:14 Dextrose 50%-Water Inj 50 Ml Syringe IV 05/27/25 04:13 Q15MIN PRN BG 50-70 responsive npo pt Dextrose 50 ml 04/27/25 04:14 Dextrose 50%-Water Inj 50 Ml Syringe IV 05/27/25 04:13 Q15MIN PRN BG <50 OR BG <70 & pt unresponsive Epoetin Terry 10,000 unit 04/30/25 11:00 Epoetin Terry-Epbx Inj 10,000 Unit/Ml Vial (Non-Esrd) SC 04/30/25 11:01 X1 ONE Glucagon 1 mg 04/27/25 04:14 Glucagon Inj 1 Mg Vial IM Q15MIN PRN BG <70, and no IV access Heparin Sodium (Porcine) 4,100 unit 04/27/25 12:11 04/27/25 12:37 Heparin Sod Inj 1000 Unit/Ml Vial 10 Ml INDWELLCAT 05/11/25 12:10 4,100 unit PRN PRN Administration DIALYSIS Azithromycin 250 mg/ Sterile 252.5 mls @ 252.5 mls/hr 04/28/25 09:00 04/29/25 11:17 Water 2.5 ml/ Sodium Chloride IV 05/05/25 08:59 252.5 mls/hr QDAY CHARLES Administration Albumin Human 25 gm in 100 mls @ 100 mls/hr 04/27/25 08:48 Albuminex 25% Ivpb IV PRN PRN DIALYSIS Ceftriaxone Sodium/Dextrose 2 gm in 50 mls @ 100 mls/hr 04/29/25 08:13 04/29/25 08:53 Rocephin/D5w 2gm IV 05/06/25 08:12 100 mls/hr QDAY CHARLES Administration Ibuprofen 600 mg 04/27/25 10:50 04/28/25 07:12 Ibuprofen Tab 600 Mg Tablet PO 05/27/25 10:49 600 mg Q6HR PRN Administration PAIN OR FEVER > 101 Protocol Insulin Human Lispro 0 unit 04/27/25 07:30 04/30/25 07:25 Insulin Lispro (Admelog) 1 Unit/0.01 Ml Unit SC 05/27/25 07:29 2 unit AC CHARLES Administration Protocol Lactulose 20 gm 04/27/25 03:49 Lactulose Syrup 20 Gm/30 Ml Udc PO 05/27/25 08:59 QDAY PRN Constipation Protocol Metoprolol Succinate 50 mg 04/29/25 09:00 04/29/25 08:53 Metoprolol Succinate Xl 25 Mg Tabcr PO 05/29/25 08:59 50 mg QDAY CHARLES Administration Pantoprazole Sodium 20 mg 04/27/25 09:00 04/29/25 08:54 Pantoprazole 20 Mg Tablet PO 05/27/25 08:59 20 mg DAILY CHARLES Administration Plan 59yM with PMH of HFrEF EEF30% 2018, DVT on ELIQUIS, IDDM, HTN, HLD, anemia, CKD newly on HD TTS with Dr. Venegas, presented to the hospital on 04/26/2025) due to rigors, chills, and fever of 103 F at home. It lasted throughout the day which made him to come to ED. Patient?s last hemodialysis was on . Patient has been admitted for Acute hypoxic respiratory failure. Nephrology has been consulted for management of ESRD on HD TTS. #ESRD on hemodialysis (//Tue) -On admission: BUN:55, Cr: 4.9, eGFR:13 -The patient received hemodialysis 04/27. -No signs of volume overload on exam. On room air satting well. -CXR (04/26/2025): Early pneumonia at the lung bases, Mild enlargement cardiac contour with prominent vascular congestion, Right internal jugular dialysis catheter satisfactory position -Hemodialysis sessions: 04/27, 04/30 Plan: -Monitor renal function -Maintain fluid restriction, avoid nephrotoxic agents when possible, renally dose medications -Strict i and o -Hemodialysis per schedule. #Acute Febrile Illness #possible CLABSI #AHRF in setting of #PNA, likely GNR #IDDM Anemia of chronic disease HFrEF with EEF 30% in 2019 HTN HLD UE DVT, likely unprovoked BPH -Management per Primary Hospitalist team Thank you for allowing us to participate in the care of your patient. Assessment and plan discussed with my attending physician Dr. Rubi Jones (PGY-1)- Internal medicine resident Attending Provider Attestation/Addendum Patient seen and examined with resident physician Dr. Jones. Note reviewed, agree with findings and recommendations. ESRD needing dialysis: Status: Acute Assessment and plan: ESRD secondary to hypertensive/diabetic nephropathy. Did receive dialysis Tuesday. Blood cultures came back positive for MSSA. Will try to salvage the catheter. Repeat blood culture seems to be negative. Will need 2 weeks of Rocephin. Hold dialysis catheter removal. Patient afebrile. White count normal. Spoke to primary team. Patient currently seen on dialysis. Tolerating dialysis without any problems. Hemodialysis for 3 hours, 2K, ultrafiltration 2-3 L, Epogen 6000, no heparin ordered. Plan of care discussed with the dialysis nurse. Please see dialysis flowsheet for further details. Noted in 04/28/2025 one of the blood cultures came back positive for staph. Pending final blood cultures. If positive then will need dialysis catheter removal prior to discharge.
[2025-04-30] MEDS: EPOETIN ALFA-EPBX INJ 10,000 UNIT/ML VIAL (NON-ESRD) 10000 UNIT SC (10:41)
[2025-04-30] MEDS: cefTRIAXone/D5w 2gm 2 GM/50 ML BAG IV (11:45)
[2025-04-30] MEDS: ATORVASTATIN CALCIUM 20 MG TABLET 80 MG PO (11:46)
[2025-04-30] MEDS: METOPROLOL SUCCINATE XL 25 MG TABCR 50 MG PO (11:46)
[2025-04-30] MEDS: PANTOPRAZOLE 20 MG TABLET PO (11:46)
[2025-04-30] MEDS: INSULIN DEGLUDEC 5 UNIT/0.05 ML (PER 5 UNITS) SC (11:47)
[2025-04-30 12:24] LABS: Lymphocytes % (Auto) 13 % (10-50)
--- NOTE | 2025-04-30 12:31 | PD.RESPRO ---
Documentation for date of: 04/30/25 Subjective Subjective Interval history: Patient examined at bedside during dialysis session. No events overnight, no major complaints. BP 160/84, leukocytosis resolved, GFR 59, Cr 5.1. Continue IV ceftriaxone 2g daily for MSSA bacteremia. He will receive antibiotics outpatient during his HD sessions. Preliminary repeat blood cultures are Negative. Keep current dialysis catheter in place per nephrology. No fevers reported in past 24 hrs. Echo showed EF 40%, no valvular defects, ruled out endocarditis. Discharge pending final blood culture results. Exam Vital Signs Temp Pulse Resp BP Pulse Ox O2 Del Method O2 Flow Rate 97 F 75 16 161/84 H 96 Room Air 4 04/30/25 12:00 04/30/25 12:00 04/30/25 12:00 04/30/25 12:00 04/30/25 12:00 04/30/25 12:00 04/29/25 09:53 Narrative Exam General: No acute distress, well nourished, AAO x3, tolerating dialysis Eye: PERRL, EOMI, normal conjunctiva, no scleral icterus HENT: Normocephalic, atraumatic, hearing intact to conversation at normal volume, moist oral mucosa Neck: Supple, non-tender, no JVD, no lymphadenopathy Lungs: Non-labored respirations, symmetric chest rise, Clear to auscultate bilaterally, No wheezing, rhonchi, crackles Heart: Peripheral pulses intact bilaterally, Regular Rate and Rhythm. Abdomen: Soft, non-tender, non-distended, no palpable masses Musculoskeletal: Normal range of motion and strength, No cyanosis or edema, No visible joint swelling Skin: Skin is warm, dry, no rashes or lesions. Right IJ cathether Psychiatric: Cooperative, appropriate mood and affect, Awake and alert, not agitated Neuro: Cranial nerves II-XII grossly intact. Sensations intact to light touch. Objective Labs 05/01/25 04:56 05/01/25 04:56 Labs: Laboratory Results - last 24 hr 04/30/25 05:08 WBC 5.3 RBC 2.91 L Hgb 8.5 L Hct 26.3 L MCV 90 MCH 29.2 MCHC 32.3 RDW Std Deviation 45.5 H Plt Count 143 Neut % (Auto) 73 Lymph % (Auto) 13 Alexander % (Auto) 9 Eos % (Auto) 3 Baso % (Auto) 1 Neut # (Auto) 3.9 Lymph # (Auto) 0.7 L Alexander # (Auto) 0.5 Eos # (Auto) 0.2 Baso # (Auto) 0.1 Immature Gran # (Auto) 0.05 H Absolute Nucleated RBC 0.00 Immature Gran % 1 H Nucleated RBC % 0 Sodium 139 Potassium 4.4 Chloride 104 Carbon Dioxide 23.6 Anion Gap 11 BUN 59 H Creatinine 5.1 H* Estim Creat Clear Calc 17.7 L eGFR 12 L* BUN/Creatinine Ratio 12 Glucose 227 H Calculated Osmolality 301 H Calcium 8.6 Corrected Calcium 9.1 Total Bilirubin 0.6 AST 35 H ALT 41 Alkaline Phosphatase 156 H Total Protein 5.5 L Albumin 3.4 L Globulin 2.1 L Albumin/Globulin Ratio 1.6 Quality Measures Quality Measures sepsis Current suspected stage: ruled out Possible source: pulmonary Blood cultures ordered: yes Antibiotic ordered: Yes Assessment & Plan Assessment Current Active Medications: Generic Name Dose Route Start Last Admin Trade Name Freq PRN Reason Stop Dose Admin Acetaminophen 650 mg 04/28/25 13:13 Acetaminophen 325 Mg Tablet PO 05/27/25 03:48 Q6H PRN Fever >101 Atorvastatin Calcium 80 mg 04/27/25 09:00 04/30/25 11:46 Atorvastatin Calcium 20 Mg Tablet PO 05/27/25 08:59 80 mg QDAY CHARLES Administration Dextrose 25 ml 04/27/25 04:14 Dextrose 50%-Water Inj 50 Ml Syringe IV 05/27/25 04:13 Q15MIN PRN BG 50-70 responsive npo pt Dextrose 50 ml 04/27/25 04:14 Dextrose 50%-Water Inj 50 Ml Syringe IV 05/27/25 04:13 Q15MIN PRN BG <50 OR BG <70 & pt unresponsive Glucagon 1 mg 04/27/25 04:14 Glucagon Inj 1 Mg Vial IM Q15MIN PRN BG <70, and no IV access Heparin Sodium (Porcine) 4,100 unit 04/27/25 12:11 04/27/25 12:37 Heparin Sod Inj 1000 Unit/Ml Vial 10 Ml INDWELLCAT 05/11/25 12:10 4,100 unit PRN PRN Administration DIALYSIS Azithromycin 250 mg/ Sterile 252.5 mls @ 252.5 mls/hr 04/28/25 09:00 04/29/25 11:17 Water 2.5 ml/ Sodium Chloride IV 05/05/25 08:59 252.5 mls/hr QDAY CHARLES Administration Albumin Human 25 gm in 100 mls @ 100 mls/hr 04/27/25 08:48 Albuminex 25% Ivpb IV PRN PRN DIALYSIS Ceftriaxone Sodium/Dextrose 2 gm in 50 mls @ 100 mls/hr 04/29/25 08:13 04/30/25 11:45 Rocephin/D5w 2gm IV 05/06/25 08:12 100 mls/hr QDAY CHARLES Administration Ibuprofen 600 mg 04/27/25 10:50 04/28/25 07:12 Ibuprofen Tab 600 Mg Tablet PO 05/27/25 10:49 600 mg Q6HR PRN Administration PAIN OR FEVER > 101 Protocol Insulin Degludec 5 unit 04/30/25 09:00 04/30/25 11:47 Insulin Degludec 5 Unit/0.05 Ml (Per 5 Units) SC 05/30/25 08:59 5 unit QDAY CHARLES Administration Insulin Human Lispro 0 unit 04/27/25 07:30 04/30/25 11:47 Insulin Lispro (Admelog) 1 Unit/0.01 Ml Unit SC 05/27/25 07:29 1 unit AC CHARLES Administration Protocol Lactulose 20 gm 04/27/25 03:49 Lactulose Syrup 20 Gm/30 Ml Udc PO 05/27/25 08:59 QDAY PRN Constipation Protocol Metoprolol Succinate 50 mg 04/29/25 09:00 04/30/25 11:46 Metoprolol Succinate Xl 25 Mg Tabcr PO 05/29/25 08:59 50 mg QDAY CHARLES Administration Pantoprazole Sodium 20 mg 04/27/25 09:00 04/30/25 11:46 Pantoprazole 20 Mg Tablet PO 05/27/25 08:59 20 mg DAILY CHARLES Administration Plan This is a 59-year-old male with PMHx of HFrEF EEF30% 2019, DVT on ELIQUIS, IDDM, HTN, HLD, anemia, CKD newly on HD TTS with Dr. Venegas, presenting to the ED with CC of rigors and fever of 103. Admitted for AHRF in setting of PNA. #MSSA bacteremia #AHRF2/2 #CAP Present with fever and rigors on the morning of admission. Met 3/4 SIRS criteria with fever 103, tachycardia 105 and WBC 15.3. No signs of EOD and normal LA, unlikely septic. He was found taschypnic and desatting to low 90s on room air. CXR showed PNA and has mild coarse breath sounds on exam. Received 1.0L NS in ED. Given his continued spiking fevers and GPC found on blood culture, central line infection favored. ? Continue IV ceftriaxone 2g daily for two weeks -Nephrology consulted, appreciate recommendations--keep HD line and resume regular dialysis sessions ? Continue TYLENOL for fever ? Oxygen PRN - Repeat blood cx pending. #ESRD on HD TTS Newely to HD since r this month. Completed last session on thru tunneled cath which appear to be intact without erythema, pain with manipulation, or crepitus. Depsite these findings, still considering CLABSI given the serverity of his constitutional symptoms. Renal function near baseline. No signs of volume overload on exam. ? Continue inpatient HD TTS ? Continue home CALCITRIOL 0.25 mcg #IDDM A1c 6.6 from earlier this month, admission glucose 165. He has a history of hypoglycemia on previous admission. Glucose continues to be stable. ? Insulin sliding scale ? Accuchecks -started 5 units degludac daily #Anemia of chronic disease Stable. Hgb 8.9 and around baseline. No signs or symptoms of abnormal bleed. ? Transfuse if Hgb < 8.0 ? Daily labs #HFrEF with EF 40% Echo from 2019 was EF 30%. No signs of fluid overload, does not appear in CHF exacerbation. Not on full GDMT. Echo 04/29--EF 40%, no valvular defects, ruled out endocarditis. ? Continue home ASA 81 mg daily ? home METOPROLOL 50 mg XL started ? Work towards full GDMT as tolerated #HTN #HLD Chronic problems. Last lipid panel from earlier this month with TG 67 and LDL 57. BP currently soft 103/58, HR 92. ? Continue home ATORVASTATIN 80 mg ? Consider resuming home antihypertensives when able UE DVT, likely unprovoked History of DVT of upper extremity, likely unprovoked. Previously on XARALTO which was switched to ELIQUIS on last admission and appropriately given ESRD. ? Continue home ELIQUIS 2.5 mg BID BPH ? Consider resume home TAMSOLUSIN 0.4 mg when able Health Maintenance: DVT prophylaxis: eliquis Diet: renal diet [place]: No Lines: PIV, tunneled dialysis catheter, right side CODE STATUS: Full code Disposition: repeat blood cultures for MSSA bacteremia pending. Patient's plan and care discussed with my attending, Dr. Chuy Willams PGY2 Attending Provider Attestation/Addendum ISummer DO, attest that I was physically present for the atkins portions of the service and evaluated the patient with the resident and I reviewed and discussed the case with the resident and agree with the resident's findings and plans of care as documented above Patient seen and eval this a.m. No acute events overnight. Patient reports no fever or chills. Patient tolerated dialysis well this morning. Pending final cultures and sensitivities. Repeat blood cultures no growth to date x 24 hours. Anticipate discharge within next 24 hours if final blood cultures are negative. Patient to continue with IV antibiotics after dialysis.
[2025-04-30] MEDS: HEPARIN SOD INJ 1000 UNIT/ML VIAL 10 ML 4100 UNIT INDWELLCAT (13:15)
[2025-04-30] MEDS: AZITHROMYCIN INJ 250 MG, Sterile Water 2.5 ML in SODIUM CHLORIDE 0.9% 250 ML 250 ML 252.5 MG IV (15:15)
--- NOTE | 2025-04-30 15:22 | PC.SS ---
SS follow up note; Patient is pending blood cultures. Patient will discharge home possibly tomorrow.
[2025-05-01] VITALS (8 sets, daily range): BP systolic 149–161; BP diastolic 81–88; PULSE 68–82; RESP 16–95; TEMP 36.2–36.9; O2SAT 95–97
[2025-05-01 05:12] LABS: Basophils # (Auto) 0.1 Thou/mm3 (0.0-0.2); Basophils % (Auto) 1 % (0-2.5); Eosinophils # (Auto) 0.2 Thou/mm3 (0.0-0.5); Eosinophils % (Auto) 5 % (0-10); Hematocrit 27.8 % (41.0-53.0); Immature Granulocytes Auto 0.11 Thou/mm3 (0.00-0.00); Lymphocytes # (Auto) 0.9 Thou/mm3 (1.0-4.8); Lymphocytes % (Auto) 19 % (10-50); Mean Corpuscular HGB Conc 31.7 g/dl (31.0-37.0); Mean Corpuscular Hemoglobin 28.5 pg (25.0-35.0); Mean Corpuscular Volume 90 fL (80-100); Monocytes # (Auto) 0.5 Thou/mm3 (0.0-0.8); Monocytes % (Auto) 12 % (0-12); Neutrophils # (Auto) 2.8 Thou/mm3 (1.8-7.7); Neutrophils % (Auto) 61 % (37-80); Nucleated Red Blood Cell # 0.00 Thou/mm3 (0.00-0.00); Nucleated Red Blood Cell % 0 /100 WBC (0); Platelet Count 143 Thou/mm3 (140-440); RDW Standard Deviation 45.1 fL (35.1-43.9); Red Blood Count 3.09 Miln/mm3 (4.50-5.90); White Blood Count 4.6 Thou/mm3 (3.8-10.6)
[2025-05-01 05:51] LABS: Hemoglobin 8.8 g/dL (13.5-16.0)
[2025-05-01 06:13] LABS: Alanine Aminotransferase 56 U/L (10-49); Albumin, Serum 3.3 gm/dL (3.5-5.0); Albumin/Globulin Ratio 1.5 (1.2-2.2); Alkaline Phosphatase 142 U/L (46-116); Anion Gap 10 (7-16); Aspartate Amino Transferase 52 U/L (0-34); BUN/Creatinine Ratio 9 Ratio (12-20); Bilirubin,Total 0.6 mg/dL (0.3-1.2); Blood Urea Nitrogen 37 mg/dL (9-23); Calcium 8.6 mg/dL (8.3-10.6); Calcium (Corrected) 9.2 mg/dL (8.5-10.1); Carbon Dioxide 26.6 mMol/L (20.0-31.0); Chloride 104 mMol/L (98-107); Creatinine (Component) 4.3 mg/dL (0.6-1.3); Estimated Creatinine Clearance 20.6 mL/min (>60); Globulin 2.2 gm/dL (2.3-3.5); Glucose 327 mg/dL (74-106); Osmolality,Calculated 302 (275-295); Potassium 4.6 mMol/L (3.4-5.1); Sodium 141 mMol/L (136-145); Total Protein 5.5 gm/dL (5.7-8.2); eGFR 15 See Note
--- NOTE | 2025-05-01 07:29 | PD.RESPRO ---
Documentation for date of: 05/01/25 Exam Vital Signs Temp Pulse Resp BP Pulse Ox O2 Del Method O2 Flow Rate 97.6 F 78 18 149/88 H 95 Room Air 4 05/01/25 04:00 05/01/25 04:00 05/01/25 04:00 05/01/25 04:00 05/01/25 04:00 05/01/25 04:00 05/01/25 04:00 Objective Labs 05/01/25 04:56 05/01/25 04:56 Labs: Laboratory Results - last 24 hr 04/30/25 05/01/25 05:08 04:56 WBC 4.6 RBC 3.09 L Hgb 8.8 L Hct 27.8 L MCV 90 MCH 28.5 MCHC 31.7 RDW Std Deviation 45.1 H Plt Count 143 Neut % (Auto) 61 Lymph % (Auto) 13 19 Aiken % (Auto) 12 Eos % (Auto) 5 Baso % (Auto) 1 Neut # (Auto) 2.8 Lymph # (Auto) 0.9 L Aiken # (Auto) 0.5 Eos # (Auto) 0.2 Baso # (Auto) 0.1 Immature Gran # (Auto) 0.11 H Absolute Nucleated RBC 0.00 Immature Gran % 2 H Nucleated RBC % 0 Sodium 141 Potassium 4.6 Chloride 104 Carbon Dioxide 26.6 Anion Gap 10 BUN 37 H Creatinine 4.3 H* D Estim Creat Clear Calc 20.6 L eGFR 15 L BUN/Creatinine Ratio 9 L Glucose 327 H D Calculated Osmolality 302 H Calcium 8.6 Corrected Calcium 9.2 Total Bilirubin 0.6 AST 52 H ALT 56 H Alkaline Phosphatase 142 H Total Protein 5.5 L Albumin 3.3 L Globulin 2.2 L Albumin/Globulin Ratio 1.5 Quality Measures Quality Measures sepsis Possible source: pulmonary Blood cultures ordered: yes Assessment & Plan Assessment Current Active Medications: Generic Name Dose Route Start Last Admin Trade Name Freq PRN Reason Stop Dose Admin Acetaminophen 650 mg 04/28/25 13:13 Acetaminophen 325 Mg Tablet PO 05/27/25 03:48 Q6H PRN Fever >101 Atorvastatin Calcium 80 mg 04/27/25 09:00 04/30/25 11:46 Atorvastatin Calcium 20 Mg Tablet PO 05/27/25 08:59 80 mg QDAY CHARLES Administration Dextrose 25 ml 04/27/25 04:14 Dextrose 50%-Water Inj 50 Ml Syringe IV 05/27/25 04:13 Q15MIN PRN BG 50-70 responsive npo pt Dextrose 50 ml 04/27/25 04:14 Dextrose 50%-Water Inj 50 Ml Syringe IV 05/27/25 04:13 Q15MIN PRN BG <50 OR BG <70 & pt unresponsive Glucagon 1 mg 04/27/25 04:14 Glucagon Inj 1 Mg Vial IM Q15MIN PRN BG <70, and no IV access Heparin Sodium (Porcine) 4,100 unit 04/27/25 12:11 04/30/25 13:15 Heparin Sod Inj 1000 Unit/Ml Vial 10 Ml INDWELLCAT 05/11/25 12:10 4,100 unit PRN PRN Administration DIALYSIS Azithromycin 250 mg/ Sterile 252.5 mls @ 252.5 mls/hr 04/28/25 09:00 04/30/25 15:15 Water 2.5 ml/ Sodium Chloride IV 05/05/25 08:59 252.5 mls/hr QDAY CHARLES Administration Albumin Human 25 gm in 100 mls @ 100 mls/hr 04/27/25 08:48 Albuminex 25% Ivpb IV PRN PRN DIALYSIS Ceftriaxone Sodium/Dextrose 2 gm in 50 mls @ 100 mls/hr 04/29/25 08:13 04/30/25 11:45 Rocephin/D5w 2gm IV 05/06/25 08:12 100 mls/hr QDAY CHARLES Administration Ibuprofen 600 mg 04/27/25 10:50 04/28/25 07:12 Ibuprofen Tab 600 Mg Tablet PO 05/27/25 10:49 600 mg Q6HR PRN Administration PAIN OR FEVER > 101 Protocol Insulin Degludec 5 unit 04/30/25 09:00 04/30/25 11:47 Insulin Degludec 5 Unit/0.05 Ml (Per 5 Units) SC 05/30/25 08:59 5 unit QDAY CHARLES Administration Insulin Human Lispro 0 unit 04/30/25 21:30 04/30/25 23:06 Insulin Lispro (Admelog) 1 Unit/0.01 Ml Unit SC 05/30/25 21:29 1 unit ACHS CHARLES Administration Protocol Lactulose 20 gm 04/27/25 03:49 Lactulose Syrup 20 Gm/30 Ml Udc PO 05/27/25 08:59 QDAY PRN Constipation Protocol Metoprolol Succinate 50 mg 04/29/25 09:00 04/30/25 11:46 Metoprolol Succinate Xl 25 Mg Tabcr PO 05/29/25 08:59 50 mg QDAY CHARLES Administration Pantoprazole Sodium 20 mg 04/27/25 09:00 04/30/25 11:46 Pantoprazole 20 Mg Tablet PO 05/27/25 08:59 20 mg DAILY CHARLES Administration
[2025-05-01] MEDS: METOPROLOL SUCCINATE XL 25 MG TABCR 50 MG PO (08:11)
[2025-05-01] MEDS: ATORVASTATIN CALCIUM 20 MG TABLET 80 MG PO (08:11)
[2025-05-01] MEDS: INSULIN LISPRO (AdmeLOG) 1 UNIT/0.01 ML UNIT SC (08:12)
[2025-05-01] MEDS: PANTOPRAZOLE 20 MG TABLET PO (08:12)
[2025-05-01] MEDS: cefTRIAXone/D5w 2gm 2 GM/50 ML BAG IV (08:12)
[2025-05-01] MEDS: INSULIN DEGLUDEC 5 UNIT/0.05 ML (PER 5 UNITS) SC (08:13)
[2025-05-01] MEDS: AZITHROMYCIN INJ 250 MG, Sterile Water 2.5 ML in SODIUM CHLORIDE 0.9% 250 ML 250 ML 252.5 MG IV (09:36)
--- NOTE | 2025-05-01 09:41 | ESDS_ITS ---
<Statement entered by Summer Vera DO - 05/01/25 15:00> I, Summer Vera DO, attest that I was physically present for the atkins portions of the service and evaluated the patient with the resident and I reviewed and discussed the case with the resident and agree with the resident's findings and plans of care as documented above <Statement entered by Ezio Steel MD - 05/01/25 14:39> I saw and examined patient personally and supervised PGY 1 resident, Dr. Reyes with formulating a management plan. I agree with the documentation with the exceptions as listed below. Patient will continue ceftriaxone 2 g IV daily and doxycycline 100 mg p.o. twice daily as outpatient to complete a total of 14 days of treatment for Staphylococcus aureus bacteremia. His last day of treatment will be on May 13, 2025. Plan of care discussed with Attending Dr. Chuy Steel MD PGY 2 Disclaimer: This note was dictated by speech recognition. Minor errors in curriculum writer may be present due to voice recognition software. Planned Discharge Date 05/01/25 DS: Providers Provider Date of admission: 04/27/25 03:49 Primary care physician: Narciso Morrow MD Admitting Provider: Trinidad Ballesteros MD Attending Provider on Admission: Summer Vera DO Consults: 04/27/25 04:09 Consult to Nephrology Routine Comment: HD on TTS Consulting Provider: Jesica Venegas 04/27/25 06:27 Health Equity Referral - Knowledge Deficit Routine Comment: Positive screening for knowledge deficit needs. Health Equity Referral - Transportation Routine Comment: Positive screening for transportation needs. Attending Provider on DC: Summer Vera DO Discharging Provider: Summer Vera DO Anticipated date of discharge: 05/01/25 DS: Diagnosis Problem List Completed Was Problem List Reviewed/Reconciled?: Yes Hospital Course Hospital Course Hospital course: This is a 59-year-old male with PMHx of HFrEF EEF30% 2019, DVT on ELIQUIS, IDDM, HTN, HLD, anemia, CKD newly on HD TTS with Dr. Venegas, presenting to the ED on 04/26/25 with CC of rigors and fever of 103, admitted for acute febrile illness. During his initial ED workup, CXR was notable for early pneumonia, ceftriaxone and azithromycin were started. On his first night, he continued to have fevers which responded well to tylenol. There was concern for possible line infection, but due to his initial persentation on the weekend, his tunneled catheter would not be able to be replaced until Tuesday. Vancomycin and ceftazidime were added. His blood cultures grew GPC which eventually were identified as MSSA. Vancomycin and ceftazidime were replaced with ceftriaxone. He continued with his regularly scheduled dialysis, patient's symptoms were resolved. ECHO was performed, EF 40%, no valvular defects, and no evidence of endocarditis. His final blood culture had no growth after 48 hours, patient was asymptomatic, felt better, and was medically cleared for discharge. He was subsequently discharged in stable condition. Recommendations: - You have been started on a medication Ceftriaxone for the infection in the b lood. You will get it during dialysis sessions for the next 2 weeks until May 13, 2025. - You have been started on a medication doxycycline for the bacteria in your blood. Take one tablet twice a day for the next 10 days - Continue the rest of your home medication as before - Follow up with Dr. Venegas within 2 weeks of discharge - Follow up with your primary care physician within 1 week of discharge. If you do not have a primary care physician, please follow up with the [facility] Residents clinic ([phone]) ? If you experience any new, worsening or persistent symptoms either call your primary doctor, or dial 911 or present to the emergency department. Discharge Diagnoses: #MSSA bacteremia #AHRF2/2 #CAP #ESRD on HD TTS #IDDM #Anemia of chronic disease #HFrEF with EF 40% #HTN #HLD #UE DVT, likely unprovoked #BPH Patient's plan and care discussed with my attending, Dr. Vera, and my senior Dr. Damián Reyes, DO PGY-1 ([facility] Resident) Time Spent with Patient Time attestation: Total time spent providing and/or coordinating discharge services: Time spent: Greater than 30 minutes Exam Vital Signs Temp Pulse Resp BP Pulse Ox O2 Del Method O2 Flow Rate 97.6 F 81 16 149/88 H 96 Room Air 4 05/01/25 08:00 05/01/25 09:14 05/01/25 09:14 05/01/25 08:11 05/01/25 08:00 05/01/25 08:00 05/01/25 04:00 Narrative Exam General: Middle aged patient, laying in bed, no acute distress, HEENT: Mucosa moist. Pupils are equal. Right sided tunneled dialysis line is non-painful with manipulation, no overlying erythema, crepitus, or tenderness to palpation. Cardiovascular: Normal S1 and S2. Regular rate and rhythm. No murmur appreciated Respiratory: Clear to auscultation bilaterally without wheezes or crackles. Abdomen: Soft, nontender, not distended, Skin: Dry, no rashes or bruising Musculoskeletal: No gross injuries. Able to move all 4 extremities. Non edematous lower extremities. Neuro: Alert and oriented x3. No focal neuro deficits. Psych: Normal affect and mood Discharge Plan Plan Patient Disposition: HOME (Self Care) Patient condition on transfer: Stable Care Plan Goals: - You have been started on a medication Ceftriaxone for the infection in the blood. You will get it during dialysis sessions for the next 2 weeks until May 13, 2025. - You have been started on a medication doxycycline for the bacteria in your blood. Take one tablet twice a day for the next 10 days - Continue the rest of your home medication as before - Follow up with Dr. Venegas within 2 weeks of discharge - Follow up with your primary care physician within 1 week of discharge. If you do not have a primary care physician, please follow up with the [facility] Residents clinic ([phone]) ? If you experience any new, worsening or persistent symptoms either call your primary doctor, or dial 911 or present to the emergency department. - Le kelley iniciado un tratamiento con ceftriaxona para la infecci?n en la giles. Lo recibir?s brianna las sesiones de di?lisis brianna las pr?ximas 2 semanas hasta el 2024. - Le kelley iniciado un tratamiento con doxiciclina para las bacterias de [place] g[place]. Puhi mil tableta dos veces al d?a brianna los pr?ximos 10 d?as. - Contin?e con el wade de [place] medicaci?n casera janett antes. - Seguimiento con el Dr. Rubi dentro de las 2 semanas posteriores al [place]. - Akanksha un seguimiento con [place] m?dico de atenci?n primaria dentro de la semana posterior al [place]. Si no tiene un m?dico de atenci?n primaria, akanksha un seguimiento con la cl?nancy de residentes de [facility] ([phone]) ? Si experimenta alg?n s?ntoma nuevo, que empeora o persistente, llame a [place] m?dico de atenci?n primaria, harrison el 911 o pres?ntese en el departamento de emergencias. Prescriptions/Referrals Prescriptions/Med Rec: New doxycycline hyclate 100 mg capsule 100 mg PO BID 10 Days Qty: 20 0RF Continued tamsulosin 0.4 mg capsule 0.4 mg PO BID Patient Comments: TAKE 1 CAPSULE BY MOUTH TWICE DAILY aspirin 81 mg tablet 81 mg PO QDAY valsartan 160 mg tablet 160 mg PO QDAY hydralazine 50 mg tablet 50 mg PO BID Rx Instructions: hydralazine HCL 50 mg atorvastatin 80 mg PO QDAY sodium bicarbonate 325 mg tablet 325 mg PO BID Patient Comments: TAKE 1 TABLET BY MOUTH TWICE DAILY Januvia 25 mg tablet 25 mg PO QDAY calcitriol 0.25 mcg capsule 0.25 mcg PO QDAY Patient Comments: TAKE 1 CAPSULE BY MOUTH ONCE DAILY metoprolol succinate [Toprol XL] 50 mg tablet extended release 24 hr 50 mg PO QDAY Eliquis 2.5 mg tablet 2.5 mg PO BID 30 Days Qty: 60 0RF pantoprazole 20 mg tablet,delayed release (DR/EC) 20 mg PO .QD Patient Comments: TAKE 1 TABLET BY MOUTH ONCE DAILY 1/2 TO 1 HOUR BEFORE MORNING MEAL Referrals: Narciso Morrow MD [Primary Care Provider, Family Practice] Patient/Caregiver Discharge Instructions Education Materials: ED Bacteremia, Suspected (Adult) Print Language: Bulgarian Stand Alone Forms: Erendira Award Info., Patient Portal Info Letter Discharge Order Discharge Orders: Discharge (Routine); Ordered 05/01/25 Ordered By: Ezio Steel Quality Discharge Quality Measures VTE prophylaxis
--- NOTE | 2025-05-01 11:05 | ESPR_ITS ---
Documentation for date of: 05/01/25 Subjective Subjective Interval history: Mr. Ny is a 59-year-old gentleman with a longstanding history of diabetes, hypertension, dyslipidemia, end-stage renal disease on dialysis, congestive heart failure presented to the emergency department with fevers and chills. Patient recently was started on dialysis via right IJ PermCath. ED course: WBC 15.3, hemoglobin 8.9, platelets 165, sodium 138, potassium 3.7, BUN 45, creatinine 4.7, lactic acid 2, phosphorus 4.1, calcium 8.6, LFTs normal, Pro-Vineet 32.2, urinalysis shows no bacteria, urine tox screen normal, chest x-ray showed early pneumonia. Patient was started on antibiotics in the ED and a nephrology consultation was requested and lieu for dialysis. 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 Patient denies any chest pain, shortness of breath. WBC 11.7, hemoglobin 8.6, platelets 118. Creatinine 4.2. Did receive dialysis yesterday. Phosphorus 4.2. Repeat blood cultures negative. Will plan for removal of dialysis catheter tomorrow due to persistent fevers 05/01/2025 patient currently seen in medical floor. Wants to go home. Repeat blood cultures negative. He is going to be discharged on p.o. antibiotics and Rocephin during dialysis for 2 weeks. Denies any fever or chills. Review of Systems Review of Systems Narrative Review of Systems: CONSTITUTIONAL: Patient Denies any fever or chills HEENT: Denies any visual disturbances or hearing problems. CARDIOVASCULAR: Patient denies any chest pain, shortness of breath, swelling in the lower extremities. PULMONARY: Patient denies any shortness of breath, cough. GASTROINTESTINAL: Patient denies any abdominal pain, constipation, nausea, vomiting, diarrhea. GENITOURINARY: Patient denies any urinary symptoms of burning or frequency or hematuria, denies any form in the urine. SKIN: Denies any rash. MUSCULOSKELETAL: Denies any muscular skeletal problems of joint pains. NEUROLOGICAL: Denies any neurological problems of strokes, seizures or confusion. Denies any memory problems. PSYCHIATRIC: Denies any depression or anxiety. LYMPHATICS : No lymphadenopathy Exam Vital Signs Temp Pulse Resp BP Pulse Ox O2 Del Method O2 Flow Rate 36.4 C 68 16 149/88 H 96 Room Air 4 05/01/25 08:00 05/01/25 10:18 05/01/25 09:14 05/01/25 08:11 05/01/25 08:00 05/01/25 08:00 05/01/25 04:00 Narrative Exam General: No acute distress, well nourished, AAO x3 Eye: PERRL, EOMI, normal conjunctiva, no scleral icterus HENT: Normocephalic, atraumatic, hearing intact to conversation at normal volume, moist oral mucosa Neck: Supple, non-tender, no JVD, no lymphadenopathy Lungs: Non-labored respirations, symmetric chest rise, Clear to auscultate bilaterally, No wheezing, rhonchi, crackles Heart: Peripheral pulses intact bilaterally, Regular Rate and Rhythm. Abdomen: Soft, non-tender, non-distended, no palpable masses Musculoskeletal: Normal range of motion and strength, No cyanosis or edema, No visible joint swelling Skin: Skin is warm, dry, no rashes or lesions. Right IJ cathether Psychiatric: Cooperative, appropriate mood and affect, Awake and alert, not agitated Neuro: Cranial nerves II-XII grossly intact. Sensations intact to light touch. Objective Labs 05/01/25 04:56 05/01/25 04:56 Labs: Laboratory Results - last 24 hr 04/30/25 05/01/25 05:08 04:56 WBC 4.6 RBC 3.09 L Hgb 8.8 L Hct 27.8 L MCV 90 MCH 28.5 MCHC 31.7 RDW Std Deviation 45.1 H Plt Count 143 Neut % (Auto) 61 Lymph % (Auto) 13 19 [place] % (Auto) 12 Eos % (Auto) 5 Baso % (Auto) 1 Neut # (Auto) 2.8 Lymph # (Auto) 0.9 L [place] # (Auto) 0.5 Eos # (Auto) 0.2 Baso # (Auto) 0.1 Immature Gran # (Auto) 0.11 H Absolute Nucleated RBC 0.00 Immature Gran % 2 H Nucleated RBC % 0 Sodium 141 Potassium 4.6 Chloride 104 Carbon Dioxide 26.6 Anion Gap 10 BUN 37 H Creatinine 4.3 H* D Estim Creat Clear Calc 20.6 L eGFR 15 L BUN/Creatinine Ratio 9 L Glucose 327 H D Calculated Osmolality 302 H Calcium 8.6 Corrected Calcium 9.2 Total Bilirubin 0.6 AST 52 H ALT 56 H Alkaline Phosphatase 142 H Total Protein 5.5 L Albumin 3.3 L Globulin 2.2 L Albumin/Globulin Ratio 1.5 Assessment & Plan Assessment and plan (1) ESRD needing dialysis: Status: Acute Assessment and plan: ESRD secondary to hypertensive/diabetic nephropathy. Next dialysis scheduled for tomorrow (2) Pneumonia: Status: Acute Assessment and plan: On antibiotics (3) Sepsis: Status: Acute Assessment and plan: Patient noted to have MSSA bacteremia. Catheter can be salvaged. No fevers. Repeat blood cultures negative. Will discharge on p.o. antibiotics and IV Rocephin with dialysis. (4) Diabetes: Status: Acute Assessment and plan: Accu-Cheks, sliding scale (5) HTN (hypertension), benign: Status: Acute Assessment and plan: On hydralazine, metoprolol, valsartan at home. (6) Hyperlipidemia: Status: Acute Assessment and plan: On statin (7) Fever: Status: Acute Assessment and plan: Probably catheter related bacteremia. Ibuprofen given. Fever resolved for 48 hours Additional Assessment & Plan Additional Plan: Plan of care discussed primary team. Thank you Summer for allowing me to participate in the care of Mr. Ny Quality - progress note Quality Measures Quality Measures: VTE prophylaxis Reason for Continued Stay Reason for Continued Stay: further monitoring
[2025-05-01 11:19] LABS: Band Neutrophils (Manual) 4 % (0-6); Basophils (Manual) 1 % (0-2); Eosinophils (Manual) 2 % (0-4); Lymphocytes (Manual) 21 % (20-44); Metamyelocytes (Manual) 2 % (0-0); Monocytes (Manual) 6 % (2-9); Neutrophils (Manual) 64 % (50-70)
== END 2025-05-01 12:09 | disposition home or self-care (01) | DRG 720 ==
LOC: SERX 04-27 03:07 → SERHOLD 04-27 04:29 → S3SX 04-27 06:16
PROVIDERS: Physician Assistant; Radiology Diagnostic Radiology; Admitting Provider Student in an Organized Health Care Education/Training Program; Emergency Provider Emergency Medicine; PCP Family Medicine; Visit Provider Internal Medicine
DX: A41.01 Sepsis due to Methicillin susceptible Staphylococcus aureus (principal); J15.9 Unspecified bacterial pneumonia; N18.6 End stage renal disease; I13.2 Hypertensive heart and chronic kidney disease with heart failure and with stage 5 chronic kidney disease, or end stage renal disease; I50.22 Chronic systolic (congestive) heart failure; Z79.4 Long term (current) use of insulin; E11.22 Type 2 diabetes mellitus with diabetic chronic kidney disease; N40.0 Benign prostatic hyperplasia without lower urinary tract symptoms; J96.01 Acute respiratory failure with hypoxia; D63.1 Anemia in chronic kidney disease; I48.91 Unspecified atrial fibrillation; E78.5 Hyperlipidemia, unspecified; Z86.718 Personal history of other venous thrombosis and embolism; Z79.01 Long term (current) use of anticoagulants; T80.219A Unspecified infection due to central venous catheter, initial encounter; Y84.8 Other medical procedures as the cause of abnormal reaction of the patient, or of later complication, without mention of misadventure at the time of the procedure; Z79.82 Long term (current) use of aspirin; Z87.891 Personal history of nicotine dependence; Z99.2 Dependence on renal dialysis
CPT/HCPCS: 36415; 71045; 80053; 80069; 80202; 80307; 81001; 83605; 83735; 84145; 85025; 85610; 85730; 87040; 87077; 87081; 87186; 87205; 87502; 87811; 93005; 93225; 93306; 96361; 96365; 96366; 96375; 99285; A4216; J0456; J0696; J0713; J1643; J1815; J2405; J3373; J7030; J7050; Q5106; A9270